=== PATIENT | female | born 1945 | race Caucasian/White ===

== ENCOUNTER 2018-04-01 18:29 | Inpatient (IN) | payer MEDICARE, MEDICAID ==
[~2018-04-01] VITALS: Ht 154.9 cm; Wt 61.4 kg
--- NOTE | 2018-04-01 18:32 | ED.ADGEN ---
Past History Past Medical History: CAD, CHF, COPD, Dementia, Depression, Other Past Surgical History: Other Adult General Chief Complaint Chief Complaint ".. They sent me here to get... checked out... " [facility] HPI Patient is a 72 year old female who presents with above hx and complaints mental status change. Pt. has history of depression, anxiety, fibromyalgia, CHF, A. fib, insomnia, bipolar disorder, dysphagia, COPD, irritable bowel syndrome, GERD, hypertension, dementia, attention seeking behaviors and recent urinary tract infection. Patient has been a resident of [facility] . Patient has been more emotional , frequently crying. However uncooperative with staff in her treatment regimen. Patient normally follows with Dr. James. Patient sent to the emergency department for senior behavioral health evaluation. Review of Systems Review of Systems Patient is a limited historian. Constitutional: Denies fever or chills [] Eyes: Denies change in visual acuity, redness, or eye pain [] HENT: Denies nasal congestion or sore throat [] Respiratory: Denies cough or shortness of breath [] Cardiovascular: No additional information not addressed in [facility] [] GI: Denies abdominal pain, nausea, vomiting, bloody stools or diarrhea [] : Denies dysuria or hematuria [] Musculoskeletal: Denies back pain or joint pain [] Integument: Denies rash or skin lesions [] Neurologic: Denies headache, focal weakness or sensory changes [] Endocrine: Denies polyuria or polydipsia [] All other systems were reviewed and found to be within normal limits, except as documented in this note. Family History Family History Not currently available Current Medications Current Medications See nursing for home medications Allergies Allergies Allergies Coded Allergies Type Severity Reaction Last Updated Verified Sulfa (Sulfonamide Antibiotics) Allergy Unknown 04/01/18 Yes butorphanol Allergy Unknown 04/01/18 Yes nalbuphine Allergy Unknown 04/01/18 Yes nitrofurantoin Allergy Unknown 04/01/18 Yes Physical Exam Physical Exam Constitutional: , no acute distress, non-toxic appearance. [] HENT: Normocephalic, atraumatic, bilateral external ears normal, oropharynx moist, no oral exudates, nose normal. [] Eyes: PERRLA, EOMI, conjunctiva normal, no discharge. [] Neck: Normal range of motion, no tenderness, supple, no stridor. [] Cardiovascular:Heart rate regular rhythm, no murmur []PMI to the left Lungs & Thorax: Bilateral breath sounds equal apex with scattered wheezes on auscultation [] Abdomen: Bowel sounds normal, soft, no tenderness, no masses, no pulsatile masses. [] Skin: Warm, dry, no erythema, no rash. Poor turgor Back: No tenderness, no CVA tenderness. [] Extremities: No tenderness, no cyanosis, no clubbing, ROM intact, no edema. [] Arthritic Changes Neurologic: Alert and oriented X 3, normal motor function, normal sensory function, no focal deficits noted. [] Psychologic: Affect anxious, judgement appears to have limited insight, mood depressed. Denies suicidal or homicidal ideations.[] Current Patient Data Vital Signs Vital Signs Date Time Temp Pulse Resp B/P (MAP) Pulse Ox O2 Delivery O2 Flow Rate FiO2 04/01/18 18:38 98.6 90 18 95 Room Air Lab Results Laboratory Tests Test 04/01/18 19:05 04/01/18 19:48 White Blood Count 7.8 x10^3/uL (4.0-11.0) Red Blood Count 4.21 x10^6/uL (3.50-5.40) Hemoglobin 13.4 g/dL (12.0-15.5) Hematocrit 39.3 % (36.0-47.0) Mean Corpuscular Volume 93 fL (79-100) Mean Corpuscular Hemoglobin 32 pg (25-35) Mean Corpuscular Hemoglobin Concent 34 g/dL (31-37) Red Cell Distribution Width 13.8 % (11.5-14.5) Platelet Count 234 x10^3/uL (140-400) Neutrophils (%) (Auto) 72 % (31-73) Lymphocytes (%) (Auto) 22 % (24-48) L Monocytes (%) (Auto) 5 % (0-9) Eosinophils (%) (Auto) 0 % (0-3) Basophils (%) (Auto) 1 % (0-3) Neutrophils # (Auto) 5.6 x10^3uL (1.8-7.7) Lymphocytes # (Auto) 1.7 x10^3/uL (1.0-4.8) Monocytes # (Auto) 0.4 x10^3/uL (0.0-1.1) Eosinophils # (Auto) 0.0 x10^3/uL (0.0-0.7) Basophils # (Auto) 0.1 x10^3/uL (0.0-0.2) Erythrocyte Sedimentation Rate 28 (0-25) H Prothrombin Time 10.6 SEC (9.4-11.4) Prothrombin Time INR 1.0 (0.9-1.1) PTT 28 SEC (23-33) Sodium Level 139 mmol/L (136-145) Potassium Level 4.0 mmol/L (3.5-5.1) Chloride Level 102 mmol/L (98-107) Carbon Dioxide Level 28 mmol/L (21-32) Anion Gap 9 (6-14) Blood Urea Nitrogen 12 mg/dL (7-20) Creatinine 1.2 mg/dL (0.6-1.0) H Estimated GFR (Cockcroft-Gault) 44.0 Glucose Level 132 mg/dL (70-99) H Calcium Level 9.7 mg/dL (8.5-10.1) Magnesium Level 1.9 mg/dL (1.8-2.4) Total Bilirubin 0.9 mg/dL (0.2-1.0) Direct Bilirubin 0.2 mg/dL (0.0-0.2) Aspartate Amino Transferase (AST) 22 U/L (15-37) Alanine Aminotransferase (ALT) 11 U/L (14-59) L Alkaline Phosphatase 117 U/L (46-116) H Ammonia < 10 mcmol/L (11-34) L Creatine Kinase 52 U/L (26-192) Creatine Kinase MB (Mass) 0.5 ng/mL (0.0-3.6) Creatine Kinase MB Relative Index 1.0 % (0-4) Troponin I Quantitative < 0.017 ng/mL (0-0.055) VW-Gsf-G-Type Natriuretic Peptide 807 pg/mL (0-124) H Total Protein 7.6 g/dL (6.4-8.2) Albumin 4.1 g/dL (3.4-5.0) Urine Collection Type U cath Urine Color Straw Urine Clarity Hazy Urine pH 5.5 Urine Specific [place] 1.020 Urine Protein 30 mg/dl (NEG-TRACE) Urine Glucose (UA) Neg mg/dL (NEG) Urine Ketones (Stick) 15 mg/dL (NEG) Urine Blood Neg (NEG) Urine Nitrite Neg (NEG) Urine Bilirubin Neg (NEG) Urine Urobilinogen Dipstick 0.2 mg/dL (0.2 mg/dL) Urine Leukocyte Esterase Neg (NEG) Urine RBC 3-5 /HPF (0-2) Urine WBC 5-10 /HPF (0-4) Urine Squamous Epithelial Cells Few /LPF Urine Bacteria Many /HPF (0-FEW) Urine Hyaline Casts Few /HPF Urine Mucus Slight /LPF Urine Opiates Screen Neg (NEG) Urine Methadone Screen Neg (NEG) Urine Barbiturates Neg (NEG) Urine Phencyclidine Screen Neg (NEG) Urine Amphetamine/Methamphetamine Neg (NEG) Urine Benzodiazepines Screen Pos (NEG) Urine Cocaine Screen Neg (NEG) Urine Cannabinoids Screen Neg (NEG) Urine Ethyl Alcohol Neg (NEG) EKG EKG My interpretation EKG shows a sinus rhythm at 80 bpm. There is findings of left axis and some nonspecific inferior changes.[] Radiology/Procedures Radiology/Procedures My interpretation chest x-ray shows no acute cardiopulmonary findings. Does have findings of chronic lung changes. Degenerative joint changes. Cardiomegaly. There is some atelectasis. No free air in the diaphragm. I interpretation CT of head shows no shift, mass, edema, bleed, or fracture. There is white matter disease changes consistent with chronic atrophy. See formal report when available[] Course & Med Decision Making Course & Med Decision Making Pertinent Labs and Imaging studies reviewed. (See chart for details) Patient to be admitted to [facility].- Dr. Kate. [] Final Impression Final Impression 1. Mental status change 2. Depression 3. History of anxiety disorder 4. Bipolar 5. History A. fib 6. History CHF[] 7. Insomnia 8. History of COPD 9. History of attention seeking behavior 10. Unable to redirect-noncompliant with medical regimen 11. Elevated creatinine 12. Diabetes Dragon Disclaimer Dragon Disclaimer This electronic medical record was generated, in whole or in part, using a voice recognition dictation system. GÓMEZ VALDES MD Apr 01, 2018 18:32
--- NOTE | 2018-04-01 18:51 | EKG ---
[address] [address] Test Date: 2018-04-01 Test Time: 18:37:34 Pat Name: WAYNE MONGE Department: Room: Gender: F Online Marketer: : 1945 Requested By: GÓMEZ VALDES Order Number: [id number] Reading MD: Sky Jung MD Measurements Intervals [place] Rate: 88 P: -30 ND: 154 QRS: 0 QRSD: 100 T: -7 QT: 400 QTc: 488 Interpretive Statements SINUS RHYTHM NON-SPECIFIC ST/T CHANGES Electronically Signed On 04-02-2018 10:22:13 CDT by Sky Jung MD
--- NOTE | 2018-04-01 19:11 | RAD ---
CT Head W/O Contrast: History: [id number] Mental status changes, confusion Comparison: none Axial images were obtained without contrast. The pantoja and white matter appears normal and symmetrical for the patients age. There is no mass effect, extraaxial fluid collections or hydrocephalus. There is no gross bleed. There is no focal loss of pantoja-white matter distinction to suggest acute ischemia, i.e. stroke. Impression: No acute findings. PQRS Compliance Statement: One or more of the following individualized dose reduction techniques were utilized for this examination: 1. Automated exposure control 2. Adjustment of the mA and/or kV according to patient size 3. Use of iterative reconstruction technique Electronically signed by: Zion Mendoza III, MD (04/01/2018 7:07 PM) [facility]
[2018-04-01 19:33] LABS: BASO # 0.1 x10^3/uL (0.0-0.2); BASO % 1 % (0-3); EOS % 0 % (0-3); HEMATOCRIT 39.3 % (36.0-47.0); HEMOGLOBIN 13.4 g/dL (12.0-15.5); LYMPH # 1.7 x10^3/uL (1.0-4.8); LYMPH % 22 % (24-48); MEAN CORPUSCULAR HEMOGLOBIN 32 pg (25-35); MEAN CORPUSCULAR HGB CONC 34 g/dL (31-37); MEAN CORPUSCULAR VOLUME 93 fL (79-100); MONO # 0.4 x10^3/uL (0.0-1.1); MONO % 5 % (0-9); NEUT # 5.6 x10^3uL (1.8-7.7); NEUT % 72 % (31-73); PLATELET COUNT 234 x10^3/uL (140-400); RED BLOOD COUNT 4.21 x10^6/uL (3.50-5.40); RED CELL DISTRIBUTION WIDTH 13.8 % (11.5-14.5); WHITE BLOOD COUNT 7.8 x10^3/uL (4.0-11.0)
[2018-04-01 19:56] LABS: CALCIUM 9.7 mg/dL (8.5-10.1); CREATININE 1.2 mg/dL (0.6-1.0); MAGNESIUM 1.9 mg/dL (1.8-2.4)
[2018-04-01] MEDS ORDERED: LISI10TA2 PO (19:56)
[2018-04-01] MEDS ORDERED: SIMV40TA3 PO (19:56)
[2018-04-01] MEDS ORDERED: LOPE2CAP88 PO (19:56)
[2018-04-01] MEDS ORDERED: BISA10SU2 RC (19:56)
[2018-04-01] MEDS ORDERED: LACT30003 PO (19:56)
[2018-04-01] MEDS ORDERED: CHLO15MO2 PO (19:56)
[2018-04-01] MEDS ORDERED: PECT2.8L3 PO (19:56)
[2018-04-01] MEDS ORDERED: CYCL5TAB PO (19:56)
[2018-04-01] MEDS ORDERED: METO5TAB55 PO ×2 (19:56)
[2018-04-01] MEDS ORDERED: CYAN10005 PO (19:56)
[2018-04-01] MEDS ORDERED: FAMO20TA5 PO (19:56)
[2018-04-01] MEDS ORDERED: ONDA4TAB11 PO (19:56)
[2018-04-01] MEDS ORDERED: ALBU2.5V5 NEB (19:56)
[2018-04-01] MEDS ORDERED: OMEP40CA5 PO (19:56)
[2018-04-01] MEDS ORDERED: MAG355OR11 PO (19:56)
[2018-04-01] MEDS ORDERED: MELA1TAB2 PO (19:56)
[2018-04-01] MEDS ORDERED: CALC1TAB70 PO (19:56)
[2018-04-01] MEDS ORDERED: CARB15DR3 EACHEYE (19:56)
[2018-04-01] MEDS ORDERED: GUAI100L12 PO (19:56)
[2018-04-01] MEDS ORDERED: OXYB10TA PO (19:56)
[2018-04-01] MEDS ORDERED: DULO60CA6 PO (19:56)
[2018-04-01] MEDS ORDERED: MENT118G TP (19:56)
[2018-04-01] MEDS ORDERED: CARV6.252 PO (19:56)
[2018-04-01] MEDS ORDERED: ALPR0.5T PO (19:56)
[2018-04-01] MEDS ORDERED: DOCU-109 PO (19:56)
[2018-04-01] MEDS ORDERED: MINE396O2 TP (19:56)
[2018-04-01] MEDS ORDERED: OXYC5CAP PO (19:56)
[2018-04-01] MEDS ORDERED: DICY20TA3 PO (19:56)
[2018-04-01 20:45] LABS: AMPHETAMINE/METHAMPHETAMINE NEG (NEG); BARBITURATES NEG (NEG); BENZODIAZEPINES POS (NEG); CANNABINOIDS NEG (NEG); COCAINE NEG (NEG); METHADONE NEG (NEG); OPIATES NEG (NEG); PHENCYCLIDINE NEG (NEG)
[2018-04-01 21:02] LABS: BACTERIA,URINE MANY /HPF (0-FEW); BILIRUBIN,URINE NEG (NEG); CLARITY,URINE HAZY; COLOR,URINE STRAW; GLUCOSE,URINE NEG (NEG); HYALINE CASTS, URINE FEW /HPF; NITRITE,URINE NEG (NEG); SQUAMOUS EPITHELIAL CELL,UR FEW /LPF; UROBILINOGEN,URINE 0.2 mg/dL (0.2 mg/dL)
[2018-04-01 21:12] LABS: SEDIMENTATION RATE 28 (0-25)
[2018-04-01 22:40] VITALS: BP 158/75
[2018-04-01] MEDS ORDERED: MAGNESIUM HYDROXIDE 2,400 MG/30 ML ORAL.SUSP. PO PRN (23:00)
[2018-04-01] MEDS ORDERED: MAG HYDROX/AL HYDROX/SIMETH 30 ML ORAL.SUSP PO PRN (23:00)
[2018-04-01] MEDS ORDERED: ACETAMINOPHEN 325 MG TABLET PO PRN (23:00)
[2018-04-01] MEDS ORDERED: METHYL SALICYLATE/MENTHOL TOPICAL OINTMENT 29GM TUBE. TP PRN (23:00)
[2018-04-01] MEDS ORDERED: [UNRECOGNIZED DRUG - CODE] TD (23:11)
[2018-04-01 23:17] LABS: ALBUMIN 4.1 g/dL (3.4-5.0); TOTAL BILIRUBIN 0.9 mg/dL (0.2-1.0); TOTAL PROTEIN 7.6 g/dL (6.4-8.2)
[2018-04-01 23:28] LABS: DIRECT BILIRUBIN 0.2 mg/dL (0.0-0.2)
[2018-04-01] MEDS ORDERED: ALUMINUM HYD PO PRN (23:30)
[2018-04-01] MEDS ORDERED: guaiFENesin 300 MG/15 ML LIQUID PO PRN (23:30)
[2018-04-01] MEDS ORDERED: NON FORMULARY ITEM (Menthol (Biofreeze) 1 APP) TP PRN (23:30)
[2018-04-01] MEDS ORDERED: MAG HYDROX PO PRN (23:30)
[2018-04-01] MEDS ORDERED: SIMETH PO PRN (23:30)
[2018-04-01] MEDS ORDERED: ALBUTEROL SULFATE 2.5 MG/3 ML NEBU. NEB PRN (23:30)
[2018-04-01] MEDS ORDERED: LOPERAMIDE 2 MG CAPSULE PO PRN (23:45)
[2018-04-01] MEDS ORDERED: DOCUSATE SODIUM 100 MG CAPSULE PO PRN (23:45)
[2018-04-01] MEDS ORDERED: BENZOCAINE/MENTHOL LOZNGE 18'S BOX. PO PRN (23:45)
[2018-04-01] MEDS ORDERED: BISACODYL 10 MG SUPP.RECT PR PRN (23:45)
[2018-04-02] MEDS ORDERED: C.DIFF MED SCREEN BY RX. MC ONE
[2018-04-02 07:02] LABS: BASO # 0.1 x10^3/uL (0.0-0.2); BASO % 1 % (0-3); EOS # 0.1 x10^3/uL (0.0-0.7); EOS % 1 % (0-3); HEMATOCRIT 37.2 % (36.0-47.0); HEMOGLOBIN 12.6 g/dL (12.0-15.5); LYMPH # 2.5 x10^3/uL (1.0-4.8); LYMPH % 24 % (24-48); MEAN CORPUSCULAR HEMOGLOBIN 32 pg (25-35); MEAN CORPUSCULAR HGB CONC 34 g/dL (31-37); MEAN CORPUSCULAR VOLUME 93 fL (79-100); MONO # 0.8 x10^3/uL (0.0-1.1); MONO % 8 % (0-9); NEUT # 6.9 x10^3uL (1.8-7.7); NEUT % 66 % (31-73); PLATELET COUNT 223 x10^3/uL (140-400); RED BLOOD COUNT 3.99 x10^6/uL (3.50-5.40); RED CELL DISTRIBUTION WIDTH 13.8 % (11.5-14.5); WHITE BLOOD COUNT 10.4 x10^3/uL (4.0-11.0)
[2018-04-02 07:13] LABS: CALCIUM 8.9 mg/dL (8.5-10.1); CREATININE 1.2 mg/dL (0.6-1.0); POTASSIUM 3.3 mmol/L (3.5-5.1)
[2018-04-02 07:24] VITALS: BP 160/79
--- NOTE | 2018-04-02 07:55 | RAD ---
Portable chest, 04/01/2018: HISTORY: Dyspnea The patient is rotated to the left. The heart size and pulmonary vascularity are within normal limits. There is calcific plaquing of the aorta. Minimal linear scarring or atelectasis is present laterally in the left lung. No pulmonary consolidation is seen. There is no evidence of pleural fluid. The bony structures are demineralized. IMPRESSION: 1. Aortic atherosclerosis. 2. Minimal linear scarring or atelectasis on the left. Electronically signed by: Joni Lam MD (04/02/2018 7:51 AM) [facility]
[2018-04-02] MEDS: FAMOTIDINE 20 MG TABLET PO SCH ×2 (08:50→19:48)
[2018-04-02] MEDS: CHLORHEXIDINE 0.12% 15 ML MOUTHWASH. SWSP SCH ×2 (08:50→19:49)
[2018-04-02] MEDS: LACTASE 3,000 UNIT TABLET PO SCH ×3 (08:50→18:05)
[2018-04-02] MEDS: CARVEDILOL 6.25 MG TABLET PO SCH ×2 (08:51→18:05)
[2018-04-02] MEDS: ALPRAZolam 0.5 MG TABLET PO SCH ×3 (08:51→19:51)
[2018-04-02] MEDS: CALCIUM CARB/VIT D3 500/200 TABLET PO SCH ×2 (08:51→18:05)
[2018-04-02] MEDS: LISINOPRIL 10 MG TABLET PO SCH (08:51)
[2018-04-02] MEDS: METOCLOPRAMIDE 5 MG TABLET PO SCH (08:51)
[2018-04-02] MEDS: DICYCLOMINE HCL 20 MG TABLET PO SCH ×4 (08:51→19:49)
[2018-04-02] MEDS: DULoxetine HCL 60 MG CAPSULE.DR PO SCH (08:51)
[2018-04-02] MEDS: OXYBUTYNIN CHLORIDE 5 MG TABLET PO SCH ×2 (08:52→19:48)
[2018-04-02] MEDS: POLYVINYL ALCOHOL 1.4% OPHTH SOLUTION 15ML BOTTLE. OU SCH ×4 (08:56→21:00)
[2018-04-02] MEDS ORDERED: FAMOTIDINE 20 MG TABLET PO SCH (09:00)
[2018-04-02] MEDS ORDERED: CYANOCOBALAMIN (VITAMIN B-12) 1,000 MCG TABLET. PO SCH (09:00)
[2018-04-02 13:31] LABS: THYROID STIM HORMONE (TSH) 0.569 uIU/mL (0.358-3.740)
[2018-04-02] MEDS: fentaNYL 25MCG/HR 1 PATCH PATCH TD SCH (14:22)
[2018-04-02] MEDS: fentaNYL 12MCG/HR 1 PATCH PATCH TD SCH (14:22)
[2018-04-02 16:46] VITALS: BP 116/58
[2018-04-02 19:10] LABS: THYROXINE 8.5 ug/dL (4.5-12.0)
[2018-04-02] MEDS: MINERAL OIL/PETROLATUM TOPICAL CREAM 113GM JAR. TP SCH (19:50)
[2018-04-02] MEDS: SIMVASTATIN 40 MG TABLET. PO SCH (19:51)
[2018-04-02] MEDS ORDERED: PANTOPRAZOLE 40 MG TABLET. PO SCH (21:00)
[2018-04-02] MEDS: MELATONIN 3 MG TABLET PO PRN (22:40)
[2018-04-03 03:12] LABS: HEMOGLOBIN A1C 5.8 % (4.8-5.6)
[2018-04-03] MEDS: CYCLOBENZAPRINE 10 MG TABLET. PO PRN (04:35)
--- NOTE | 2018-04-03 04:57 | CONS ---
DATE OF CONSULTATION: 04/02/2018 REASON FOR CONSULTATION: Medical management. HISTORY OF PRESENT ILLNESS: This is a 72-year-old female patient, a resident at [facility] who was admitted on account of attention seeking, states the staff did not have time for her. She finished antibiotics for UTI. She is exit seeking, believes someone coming to pick her up to take her home. She has labile mood, crying, walking into mental health social worker office stating that I need to go to the hospital because I cannot walk. She also complains stated that she is unable to eat or drink; however, she was observed eating and drinking without difficulty. PAST MEDICAL HISTORY: Significant for irritable bowel syndrome, hyperlipidemia, gastroesophageal reflux disease, hypertension, atherosclerotic heart disease, dysphagia, bipolar disorder, and heart failure as well as atrial fibrillation, polyarthritis, poly-osteoarthritis, COPD and osteoporosis. She has also fall with right hip pain, fracture of the right pubic ramus. PAST SURGICAL HISTORY: Significant for cholecystectomy, appendectomy, total abdominal hysterectomy, bilateral salpingo-oophorectomy. She also has esophagogastroduodenoscopy as well as colonoscopy and polypectomy. ALLERGIES: SHE IS ALLERGIC TO IODINATED CONTRAST, ORAL AND IV DYE, SULFA DRUGS, BUTORPHANOL, NALBUPHINE, NITROFURANTOIN. MEDICATIONS: She is currently on the following medications: She is on dicyclomine 20 mg 4 times a day, albuterol sulfate 2.5 mg 3 mL by nebulizer every 6 hours. She is on cyclobenzaprine 5 mg every 8 hours, simvastatin 40 mg at bedtime, carvedilol 6.25 mg twice a day with meals, lisinopril 10 mg once a day, fentanyl 37.5 mcg patch topically to be replaced every 72 hours. She is on oxycodone 5 mg every 6 hours, duloxetine for Cymbalta 60 mg once a day, alprazolam 0.5 mg 3 times a day. She is on calcium carbonate and vitamin D3 1 capsule twice a day, guaifenesin 100 mg per 5 mL liquid 15 mL every 6 hours. She is on chlorhexidine gluconate 15 mL p.o. b.i.d., carboxymethylcellulose or Refresh Optive eyedrops 1 drop to both eyes 4 times a day, ____ every 3 hours as needed. She is on Maalox 30 mL as needed every 6 hours, loperamide 2 mg every 4 hours as needed, bisacodyl 10 mg rectally daily p.r.n. for constipation, docusate sodium 100 mg twice a day. She is on lactase 3000 unit tablet 3 tablets p.o. 3 times a day with meals. She is on ondansetron 4 mg every 8 hours, famotidine 20 mg daily, omeprazole 40 mg at bedtime, metoclopramide 5 mg every 6 hours, metoclopramide 5 mg p.o. daily, menthol for Biofreeze 1 application topically every 6 hours, oxybutynin chloride 10 mg daily, cyanocobalamin 1000 mcg tablet once a day, melatonin/pyridoxine one tablet at bedtime. FAMILY HISTORY: Unremarkable. SOCIAL HISTORY: She is a resident at [facility]. She does not smoke, drink alcohol or use any recreational drugs. REVIEW OF SYSTEMS: As per history of present illness. PHYSICAL EXAMINATION GENERAL: When I examined her, she looks well and was clearly in no apparent respiratory distress, slightly pale, no jaundice, cyanosis, or thyromegaly. No jugular venous distension. No limb edema. VITAL SIGNS: Her heart rate was 96, blood pressure was 160/79, temperature was 97.6, respiratory rate was 18, and oxygen saturation 100% on room air. HEAD, EYES, EARS, NOSE AND THROAT: Showed normocephalic, atraumatic. NECK: Supple. HEART: Showed normal first and sounds with no gallop, rub or murmur. CHEST: Clear to auscultation. No crepitation or rhonchi. ABDOMEN: Distended, soft, nontender. No guarding or rigidity. No organomegaly. All hernial orifices are intact. Bowel sounds normal. NEUROLOGIC: She is awake, alert. All her cranial nerves are intact. EXTREMITIES: She moves extremities without difficulty. She apparently is mostly able to walk with a walker. Also, she is wheelchair bound. LABORATORY DATA: Showed that her white cell count was 7800, hemoglobin 13.4, hematocrit 39, MCV 93, and platelet count 234,000 with normal manual differential. Her chemistry showed a serum sodium 139, potassium 4, chloride 102, bicarbonate 28, anion gap of 9, BUN 12, creatinine 1.2, estimated GFR was 44 mL per minute. Her glucose 132, calcium was 9.7, magnesium was 1.9. Her total protein was 7.6, albumin 4.1. Her total bilirubin, AST, ALT, and alkaline phosphatase were normal. Her serum ammonia was less than 10. Her prothrombin time was 10.6, INR of 1, aPTT was 28. Urinalysis showed the urine was straw colored, hazy with a pH of 5.5, specific gravity 1.020. There is a trace of protein. The urine was negative for glucose. There was small amount of ketones. Urine was negative for blood, nitrite and leukocyte esterase with 3-5 rbc's and 5-10 wbc's, very few bacteria. Her tox screen was positive only for benzodiazepine. IMAGING DATA: Her CT scan of the head showed that the duran and white matter appeared normal and symmetrical for the patient's age. There is no mass effect, extra fluid collection or hydrocephalus. There is no gross bleed. There is no focal loss of duran or white matter distinction to suggest an acute ischemia. Her chest x-ray showed that the patient was rotated to the left. Her heart size and pulmonary vascularity are within normal limits. There is calcific plaquing of the aorta, minimal linear scarring or atelectasis is present laterally in the lung field. No pulmonary consolidation is seen. There is no evidence of pleural fluid, the bony structures are demineralized. IMPRESSION AND PLAN: In summary, this is a 72-year-old female patient who was admitted on account of attention seeking, stating that the staff does not have time for her. She finished antibiotics for urinary tract infection. She is exit seeking, believes that someone is coming to pick her up to take her home. She has a labile mood. She is crying, walking to mental health social worker office stating that she needs to go to the hospital as she is unable to walk; all this in a background of bipolar disorder. Medically, she has multiple medical problems including irritable bowel syndrome, hyperlipidemia, hypertension, gastroesophageal reflux disease. She has also dysphagia, heart failure, atrial fibrillation, anxiety and osteoporosis as well as osteoarthritis. Medically, she is overall seems to be stable. Her blood pressure is slightly on the high side. I will continue all this medication. I will monitor her blood pressure. We might have to adjust her blood pressure medication if need be. She is on lisinopril 10 mg once a day, carvedilol 6.25 mg, we could increase one or both of them to achieve a better blood pressure control. Thank you, Dr. Kate for allowing me to participate in the care of this patient. MARIA POWER MD DR: HAFSA/tessie JOB#: [id number] / [id number]
[2018-04-03 05:55] VITALS: BP 125/56
[2018-04-03] MEDS: FAMOTIDINE 20 MG TABLET PO SCH ×2 (10:15→19:04)
[2018-04-03] MEDS: LACTASE 3,000 UNIT TABLET PO SCH ×3 (10:15→17:27)
[2018-04-03] MEDS: CARVEDILOL 6.25 MG TABLET PO SCH ×2 (10:15→17:00)
[2018-04-03] MEDS: METOCLOPRAMIDE 5 MG TABLET PO SCH (10:15)
[2018-04-03] MEDS: DICYCLOMINE HCL 20 MG TABLET PO SCH ×4 (10:15→19:04)
[2018-04-03] MEDS: CHLORHEXIDINE 0.12% 15 ML MOUTHWASH. SWSP SCH ×2 (10:16→19:04)
[2018-04-03] MEDS: OXYBUTYNIN CHLORIDE 5 MG TABLET PO SCH ×2 (10:16→19:04)
[2018-04-03] MEDS: CALCIUM CARB/VIT D3 500/200 TABLET PO SCH ×2 (10:16→17:27)
[2018-04-03] MEDS: DULoxetine HCL 60 MG CAPSULE.DR PO SCH (10:16)
[2018-04-03] MEDS: LISINOPRIL 10 MG TABLET PO SCH (10:16)
[2018-04-03] MEDS: POLYVINYL ALCOHOL 1.4% OPHTH SOLUTION 15ML BOTTLE. OU SCH ×4 (10:19→20:24)
[2018-04-03] MEDS: ALPRAZolam 0.5 MG TABLET PO SCH ×3 (10:19→19:05)
[2018-04-03] MEDS: oxyCODONE IR 5 MG TABLET PO PRN ×2 (11:34→13:00)
--- NOTE | 2018-04-03 13:04 | HP ---
ADMIT DATE: 04/02/2018 PSYCHIATRIC ADMISSION HISTORY/EVALUATION This is a late entry, date of service 04/02/2018 covers elements not covered in my initial note of 04/02/2018. SUBJECTIVE: Met with the patient in evening of 04/02/2018. IDENTIFYING DATA: The patient is a 72-year-old female referred to us from [place], [place] by Dr. Arvin James, her primary care physician and psychologist from [facility] who have been following her there. She is referred because of "attention-seeking behaviors''. She states ''staff reportedly does not have time for her''. Has been anxious, exit seeking, restless, paranoid, delusional, believes someone is coming to pick her up, take her home, has had episodic crying spells, extreme marked mood lability, went to the nursing staff indicating she wanted to go to the hospital for psychiatric stabilization. She has recently completed treatment of her UTI. Behaviors symptoms, mood lability has been worsening 2-3 months, much worse for the past few days resulting in this referral. CHIEF COMPLAINT: ''Over the year is 1919". It is unclear entirely. The patient is so confused, does state the year is 1919 year. This is part of her psychiatric presentation and will be clarified during this hospitalization. HISTORY OF PRESENT ILLNESS: The patient has a diagnosis of bipolar disorder, treated in the past and we will be requesting past records for this. Over the last 2 months, behaviors have been worsening markedly, much worse in the past few days. She has had sleep and appetite changes, marked mood lability, anxiety, irritability psychotic symptoms and behaviors that have been unmanageable at the halfway. No active suicidal or homicidal ideation. She has been quite disruptive. PAST PSYCHIATRIC HISTORY: As above. MEDICAL HISTORY: Irritable bowel syndrome, hyperlipidemia, GERD, hypertension, atherosclerotic heart disease, dysphagia, heart failure, atrial fibrillation, polyosteoarthritis, COPD, osteoporosis, repeated falls, pain, right hip, fractured right pubis, difficulty walking, recent UTI. CODE STATUS: DNR. ALLERGIES: SULFADIAZINE, MACRODANTIN, NUBAIN, STADOL, CONTRAST DYES. ACCU-CHEKS: None. DIET: Regular diet. MEDICATIONS: Takes medications crushed in pudding. WALKS: Independently with a walker. FAMILY HISTORY: Noncontributory. SOCIAL HISTORY: No alcohol, drug abuse, physical, sexual or elder abuse history is noted. She is not known to be a perpetrator. CURRENT PSYCHOTROPICS: Cymbalta 60 mg a day, melatonin 5 mg at bedtime p.r.n., Xanax 0.5 mg 3 times a day. REACTION TO HOSPITALIZATION: The patient accepting of this, in fact requested it herself. ASSETS: Supportive living at the above facility. MENTAL STATUS EXAM: The patient was seen individually in evening of 04/02/2018. She said the year was 1919, felt she had been here 2 weeks where she was admitted the previous evening. Per report from social service staff, Kellie, the patient is quite disorganized, anxious, restless, admits to memory deficits, made vague statements to social service staff about wanting to kill herself then denied this. She denied active suicidal ideation as I questioned her on this. She has been somewhat delusional, talked about having being kidnapped by 4 guys that for "giving her payback'' and then she said she was thinking about suicide and it was okay because it all ''worked out." Speech is coherent, rapid at times. Abstraction fair, computation impaired, language function intact. Attention span short. Mood and affect remains labile. LABORATORY DATA: Reviewed. IMPRESSION: Bipolar 1 disorder, mixed with psychotic features; anxiety disorder, unspecified; impulse control disorder, unspecified; probable major neurocognitive disorder, Alzheimer, vascular with depression, delusions. Rest as above. PLAN: Admit to Geropsychiatry Unit at [facility]. I will see the patient daily individually from a psychiatric standpoint. Medical followup per Dr. Barajas/Dr Cast. Continue the patient on her current psychotropics. Obtain past psychiatric records. Consider Depakote as a mood stabilizer or Lamictal if depressive episodes rather prominent mood symptoms and her bipolar symptoms. Estimated length of stay 10-12 days. DISPOSITION: Plans back to [facility]. MAN Ziggy RODRÍGUEZ MD DR: SHIRA/tessie JOB#: [id number] / [id number]
[2018-04-03] MEDS: ONDANSETRON ODT 4 MG TAB.RAPDIS PO PRN (14:38)
[2018-04-03 16:04] VITALS: BP 102/52
[2018-04-03] MEDS: SIMVASTATIN 40 MG TABLET. PO SCH (19:04)
[2018-04-03] MEDS: hydrOXYzine HCL 25 MG TABLET PO PRN (19:04)
[2018-04-03] MEDS: MELATONIN 3 MG TABLET PO PRN (19:06)
[2018-04-03] MEDS: MINERAL OIL/PETROLATUM TOPICAL CREAM 113GM JAR. TP SCH (19:06)
--- NOTE | 2018-04-03 20:25 | PDOC ---
Exam Note: Johnny Note: Please also refer to the separate dictated note~for this date of service dictated separately.~Patient seen individually. Discussed the patient with Nursing staff reviewed the chart.~Reviewed interim history and current functioning. Reviewed vital signs,~Labs/ Radiology~and current medications noted below. Continue current treatment with the changes noted in the dictated addendum note Assessment: Vital Signs: Vital Signs Date Time Temp Pulse Resp B/P (MAP) Pulse Ox O2 Delivery O2 Flow Rate FiO2 04/03/18 17:00 89 102/52 04/03/18 16:04 98.2 17 98 Room Air I&O Intake and Output 04/03/18 07:00 Intake Total 720 ml Balance 720 ml Intake Oral 720 ml Current Medications: Meds: Current Medications Acetaminophen (Tylenol) 650 mg PRN Q6HRS PRN PO PAIN / TEMP Last administered on 04/02/18at 11:45; Start 04/01/18 at 23:00 Multi-Ingredient Ointment (Analgesic [place]) 1 bushra PRN QID PRN TP MUSCLE PAIN; Start 04/01/18 at 23:00 Al Hydroxide/Mg Hydroxide (Mylanta Plus Xs) 15 ml PRN AFTMEALHC PRN PO DYSPEPSIA Last administered on 04/02/18at 12:27; Start 04/01/18 at 23:00 Magnesium Hydroxide (Milk Of Magnesia) 2,400 mg PRN QHS PRN PO CONSTIPATION; Start 04/01/18 at 23:00 Alprazolam (Xanax) 0.5 mg TID PO Last administered on 04/03/18at 19:05; Start at 09:00 Duloxetine HCl (Cymbalta) 60 mg DAILY PO Last administered on 04/03/18at 10:16; Start 04/02/18 at 09:00 Melatonin 6 mg PRN QHS PRN PO INSOMNIA Last administered on 04/03/18at 19:06; Start 04/01/18 at 23:45 Albuterol Sulfate (Ventolin) 2.5 mg PRN Q6HRS PRN NEB SHORTNESS OF BREATH; Start 04/01/18 at 23:30 Chlorhexidine Gluconate (Peridex) 15 ml BID SWSP Last administered on at 19:04; Start 04/02/18 at 09:00 Cyanocobalamin (Vitamin B-12) 1,000 mcg DAILY PO Last administered on at 08:51; Start 04/02/18 at 09:00; Status Future Hold Guaifenesin (Robitussin) 300 mg PRN Q6HRS PRN PO COUGH; Start 04/01/18 at 23:30 Lisinopril (Prinivil) 10 mg DAILY PO Last administered on 04/03/18at 10:16; Start 04/02/18 at 09:00 Simvastatin (Zocor) 40 mg HS PO Last administered on 04/03/18at 19:04; Start at 21:00 Bisacodyl (Dulcolax Supp) 10 mg PRN DAILY PRN [place] CONSTIPATION; Start 04/01/18 at 23:45 Calcium/Vitamin D (Oscal D 500mg/ 200uts) 1 tab BIDWMEALS PO Last administered on 04/03/18 17:27; Start 04/02/18 at 08:00 Artificial Tears (Artificial Tears) 1 drop QID OU Last administered on at 18:04; Start 04/02/18 at 09:00 Carvedilol (Coreg) 6.25 mg BIDWMEALS PO Last administered on 04/03/18at 10:15; Start 04/02/18 at 08:00 Cyclobenzaprine HCl (Flexeril) 5 mg PRN Q8HRS PRN PO MUSCLE SPASMS Last administered on 04/03/18 04:35; Start 04/01/18 at 23:45 Dicyclomine HCl (Bentyl) 20 mg QID PO Last administered on 04/03/18at 19:04; Start 04/02/18 at 09:00 Docusate Sodium (Colace) 100 mg PRN DAILY PRN PO CONSTIPATION; Start 04/01/18 at 23:45 Famotidine (Pepcid) 20 mg DAILY PO ; Start 04/02/18 at 09:00; Stop 04/02/18 at 09:00; Status DC Fentanyl (Duragesic 12mcg/ Hr) 1 patch Q3DAYS TD ; Start 04/04/18 at 09:00; Stop 04/04/18 at 09:00; Status DC Lactase (Lactaid) 9,000 unit TIDWMEALS PO Last administered on 6/27/18at 17:27 ; Start 04/02/18 at 08:00 Loperamide HCl (Imodium) 2 mg PRN Q4HRS PRN PO DIARRHEA; Start 04/01/18 at 23: 45 Non-Formulary Medication (Mag Hydrox/ Aluminum Hyd/ Simeth (Maalox Advanced Suspension)) 30 ml PRN Q6HRS PRN PO DYSPEPSIA; Start 04/01/18 at 23:30; Status UNV Non-Formulary Medication (Menthol (Biofreeze)) 1 bushra PRN Q6HRS PRN TP PAIN; Start 04/01/18 at 23:30; Status UNV Metoclopramide HCl (Reglan) 5 mg DAILY PO Last administered on 04/03/18at 10:15 ; Start 04/02/18 at 09:00 Metoclopramide HCl (Reglan) 5 mg PRN Q6HRS PRN PO NAUSEA/VOMITING; Start at 23:45 Multi-Ingred Cream/Lotion/Oil/ Oint (Hydrocerin) 1 bushra QHS TP Last administered on 04/03/18at 19:06; Start 04/02/18 at 21:00 Pantoprazole Sodium (Protonix) 40 mg QHS PO ; Start 04/02/18 at 21:00; Stop at 21:00; Status DC Ondansetron HCl (Zofran Odt) 4 mg PRN Q8HRS PRN PO NAUSEA/VOMITING Last administered on 04/03/18at 14:38; Start 04/01/18 at 23:45 Oxybutynin Chloride (Ditropan) 5 mg BID PO Last administered on 04/03/18at 19:04 ; Start 04/02/18 at 09:00 Oxycodone HCl (Roxicodone) 5 mg PRN Q6HRS PRN PO PAIN Last administered on 04/03at 11:34; Start 04/01/18 at 23:45 Throat Lozenges (Cepacol Sore Throat Lozenge) 1 bela PRN Q2HR PRN PO SORE THROAT ; Start 04/01/18 at 23:45 Fentanyl (Duragesic 25mcg/ Hr) 1 patch Q3DAYS TD ; Start 04/04/18 at 09:00; Stop 04/04/18 at 09:00; Status DC Info (Do NOT chart on this placeholder) 1 each 1X ONCE MC Last administered on 04/02/18at 00:00; Start 04/02/18 at 00:00; Stop 04/02/18 at 00:01; Status DC Famotidine (Pepcid) 20 mg BID PO Last administered on 04/03/18at 19:04; Start at 09:00 Fentanyl (Duragesic 12mcg/ Hr) 1 patch Q3DAYS TD Last administered on at 14:22; Start 04/02/18 at 14:00 Fentanyl (Duragesic 25mcg/ Hr) 1 patch Q3DAYS TD Last administered on at 14:22; Start 04/02/18 at 14:00 Hydroxyzine HCl (Atarax) 25 mg PRN Q2HR PRN PO ANXIETY Last administered on at 19:04; Start 04/03/18 at 18:30 Quetiapine Fumarate (SEROquel) 12.5 mg 0900,1300,1700 PO ; Start 04/04/18 at 09: 00 Active Scripts Active Reported Fentanyl 1 Each Patch.td72 37.5 Mcg TD Q3DAYS Ondansetron Hcl 4 Mg Tablet 4 Mg PO PRN Q8HRS PRN Xanax (Alprazolam) 0.5 Mg Tablet 0.5 Mg PO TID Throat Drops (Pectin) 2.8 Mg Lozenge 1 Unit PO PRN Q3HRS PRN Simvastatin 40 Mg Tablet 40 Mg PO HS Reglan (Metoclopramide Hcl) 5 Mg Tablet 5 Mg PO DAILY Reglan (Metoclopramide Hcl) 5 Mg Tablet 5 Mg PO PRN Q6HRS PRN Refresh Optive Eye Drops (Carboxymethylcellulos/Glycerin) 15 Ml Drops 1 Drop EACHEYE QID Oyster Shell 500 Mg + Vit D Tb (Calcium Carbonate/Vitamin D3) 1 Each Tablet 1 Tab PO BID Oxycodone Hcl 5 Mg Capsule 5 Mg PO PRN Q6HRS PRN Oxybutynin Chloride Er (Oxybutynin Chloride) 10 Mg Tab.er.24 10 Mg PO DAILY Omeprazole 40 Mg Capsule.dr 40 Mg PO HS Maalox Advanced Suspension (Mag Hydrox/Aluminum Hyd/Simeth) 355 Ml Oral.susp 30 Ml PO PRN Q6HRS PRN Melatonin 5 Mg Tablet (Melatonin/Pyridoxine) 1 Each Tablet 5 Mg PO PRN QHS PRN Lisinopril 10 Mg Tablet 10 Mg PO DAILY Lactase 3,000 Unit Tablet 3 Tab PO TIDWMEALS Imodium A-D (Loperamide HCl) 2 Mg Capsule 2 Mg PO PRN Q4HRS PRN Guaifenesin 100 Mg/5 Ml Liquid 15 Ml PO PRN Q6HRS PRN Famotidine 20 Mg Tablet 20 Mg PO DAILY Dicyclomine Hcl 20 Mg Tablet 20 Mg PO QID Cymbalta (Duloxetine Hcl) 60 Mg Capsule.dr 60 Mg PO DAILY Cyclobenzaprine Hcl 5 Mg Tablet 5 Mg PO PRN Q8HRS PRN Vitamin B-12 (Cyanocobalamin (Vitamin B-12)) 1,000 Mcg Tablet 1,000 Mcg PO DAILY Colace (Docusate Sodium) 100 Mg Capsule 100 Mg PO PRN DAILY PRN Peridex (Chlorhexidine Gluconate) 15 Ml Mouthwash 15 Ml PO BID Carvedilol 6.25 Mg Tablet 6.25 Mg PO BIDWMEALS Bisacodyl 10 Mg Supp.rect 10 Mg RC PRN DAILY PRN Biofreeze (Menthol) 118 Ml Gel..ml. 1 Bushra TP PRN Q6HRS PRN Aquaphor Ointment (Mineral Oil/Hydrophil Petrolat) 396 Gm Oint...g. 1 Bushra TP HS Albuterol Sulfate Neb Soln (Albuterol Sulfate) 2.5 Mg/3 Ml Vial.neb 3 Ml NEB PRN Q6HRS PRN I have reviewed the current psychotropics carefully including drug interactions. Risk benefit ratio favors no change other than as noted in my dictated progress note. Diagnosis: Problems: (1) Mental status alteration (2) Anxiety disorder (3) Bipolar affective disorder, mixed (4) Dementia in Alzheimer's disease with depression (5) Dementia in Alzheimer's disease with delusions (6) Dementia, vascular, with delusions (7) Dementia, vascular, with depression (8) Impulse control disorder KALIE RODRÍGUEZ MD Apr 03, 2018 20:25
[2018-04-04 05:37] VITALS: BP 119/51
[2018-04-04] MEDS ORDERED: fentaNYL 12MCG/HR 1 PATCH PATCH TD SCH (09:00)
[2018-04-04] MEDS ORDERED: fentaNYL 25MCG/HR 1 PATCH PATCH TD SCH (09:00)
[2018-04-04] MEDS: CARVEDILOL 6.25 MG TABLET PO SCH ×2 (10:13→17:00)
[2018-04-04] MEDS: DULoxetine HCL 60 MG CAPSULE.DR PO SCH (10:13)
[2018-04-04] MEDS: METOCLOPRAMIDE 5 MG TABLET PO SCH (10:13)
[2018-04-04] MEDS: CALCIUM CARB/VIT D3 500/200 TABLET PO SCH ×3 (10:13→17:35)
[2018-04-04] MEDS: FAMOTIDINE 20 MG TABLET PO SCH ×2 (10:13→20:43)
[2018-04-04] MEDS: LACTASE 3,000 UNIT TABLET PO SCH ×3 (10:14→17:37)
[2018-04-04] MEDS: LISINOPRIL 10 MG TABLET PO SCH (10:14)
[2018-04-04] MEDS: CHLORHEXIDINE 0.12% 15 ML MOUTHWASH. SWSP SCH ×2 (10:14→20:43)
[2018-04-04] MEDS: DICYCLOMINE HCL 20 MG TABLET PO SCH ×4 (10:14→20:44)
[2018-04-04] MEDS: OXYBUTYNIN CHLORIDE 5 MG TABLET PO SCH ×2 (10:14→20:43)
[2018-04-04] MEDS: ALPRAZolam 0.5 MG TABLET PO SCH ×3 (10:16→20:48)
[2018-04-04] MEDS: QUEtiapine 25 MG TABLET. PO SCH ×3 (10:16→17:35)
[2018-04-04] MEDS: POLYVINYL ALCOHOL 1.4% OPHTH SOLUTION 15ML BOTTLE. OU SCH ×5 (10:35→20:48)
[2018-04-04] MEDS: CYCLOBENZAPRINE 10 MG TABLET. PO PRN (11:54)
[2018-04-04] MEDS: hydrOXYzine HCL 25 MG TABLET PO PRN (11:54)
[2018-04-04] MEDS: ONDANSETRON ODT 4 MG TAB.RAPDIS PO PRN ×2 (12:24→20:48)
[2018-04-04] MEDS: METOCLOPRAMIDE 5 MG TABLET PO PRN (15:13)
[2018-04-04 16:07] VITALS: BP 98/74
[2018-04-04] MEDS: SIMVASTATIN 40 MG TABLET. PO SCH (20:44)
[2018-04-04] MEDS: MELATONIN 3 MG TABLET PO PRN (20:48)
--- NOTE | 2018-04-04 20:57 | PDOC ---
Exam Note: Johnny Note: Please also refer to the separate dictated note~for this date of service dictated separately.~Patient seen individually. Discussed the patient with Nursing staff reviewed the chart.~Reviewed interim history and current functioning. Reviewed vital signs,~Labs/ Radiology~and current medications noted below. Continue current treatment with the changes noted in the dictated addendum note Assessment: Vital Signs: Vital Signs Date Time Temp Pulse Resp B/P (MAP) Pulse Ox O2 Delivery O2 Flow Rate FiO2 04/04/18 17:00 110 98/74 04/04/18 16:07 98.7 22 98 Room Air I&O Intake and Output 04/04/18 06:59 Intake Total 720 ml Balance 720 ml Intake Oral 720 ml # Voids 1 Current Medications: Meds: Current Medications Acetaminophen (Tylenol) 650 mg PRN Q6HRS PRN PO PAIN / TEMP Last administered on 04/02/18at 11:45; Start 04/01/18 at 23:00 Multi-Ingredient Ointment (Analgesic [place]) 1 bushra PRN QID PRN TP MUSCLE PAIN; Start 04/01/18 at 23:00 Al Hydroxide/Mg Hydroxide (Mylanta Plus Xs) 15 ml PRN AFTMEALHC PRN PO DYSPEPSIA Last administered on 04/02/18at 12:27; Start 04/01/18 at 23:00 Magnesium Hydroxide (Milk Of Magnesia) 2,400 mg PRN QHS PRN PO CONSTIPATION; Start 04/01/18 at 23:00 Alprazolam (Xanax) 0.5 mg TID PO Last administered on 04/04/18at 20:48; Start at 09:00 Duloxetine HCl (Cymbalta) 60 mg DAILY PO Last administered on 04/04/18at 10:13; Start 04/02/18 at 09:00 Melatonin 6 mg PRN QHS PRN PO INSOMNIA Last administered on 04/04/18at 20:48; Start 04/01/18 at 23:45 Albuterol Sulfate (Ventolin) 2.5 mg PRN Q6HRS PRN NEB SHORTNESS OF BREATH; Start 04/01/18 at 23:30 Chlorhexidine Gluconate (Peridex) 15 ml BID SWSP Last administered on at 20:43; Start 04/02/18 at 09:00 Cyanocobalamin (Vitamin B-12) 1,000 mcg DAILY PO Last administered on at 08:51; Start 04/02/18 at 09:00; Status Future Hold Guaifenesin (Robitussin) 300 mg PRN Q6HRS PRN PO COUGH; Start 04/01/18 at 23:30 Lisinopril (Prinivil) 10 mg DAILY PO Last administered on 04/04/18at 10:14; Start 04/02/18 at 09:00 Simvastatin (Zocor) 40 mg HS PO Last administered on 04/04/18at 20:44; Start at 21:00 Bisacodyl (Dulcolax Supp) 10 mg PRN DAILY PRN [place] CONSTIPATION; Start 04/01/18 at 23:45 Calcium/Vitamin D (Oscal D 500mg/ 200uts) 1 tab BIDWMEALS PO Last administered on 04/04/18 10:13; Start 04/02/18 at 08:00 Artificial Tears (Artificial Tears) 1 drop QID OU Last administered on at 18:04; Start 04/02/18 at 09:00 Carvedilol (Coreg) 6.25 mg BIDWMEALS PO Last administered on 04/04/18at 10:13; Start 04/02/18 at 08:00 Cyclobenzaprine HCl (Flexeril) 5 mg PRN Q8HRS PRN PO MUSCLE SPASMS Last administered on 04/04/18at 11:54; Start 04/01/18 at 23:45 Dicyclomine HCl (Bentyl) 20 mg QID PO Last administered on 04/04/18at 20:44; Start 04/02/18 at 09:00 Docusate Sodium (Colace) 100 mg PRN DAILY PRN PO CONSTIPATION; Start 04/01/18 at 23:45 Famotidine (Pepcid) 20 mg DAILY PO ; Start 04/02/18 at 09:00; Stop 04/02/18 at 09:00; Status DC Fentanyl (Duragesic 12mcg/ Hr) 1 patch Q3DAYS TD ; Start 04/04/18 at 09:00; Stop 04/04/18 at 09:00; Status DC Lactase (Lactaid) 9,000 unit TIDWMEALS PO Last administered on 04/04/18at 17:37 ; Start 04/02/18 at 08:00 Loperamide HCl (Imodium) 2 mg PRN Q4HRS PRN PO DIARRHEA; Start 04/01/18 at 23: 45 Non-Formulary Medication (Mag Hydrox/ Aluminum Hyd/ Simeth (Maalox Advanced Suspension)) 30 ml PRN Q6HRS PRN PO DYSPEPSIA; Start 04/01/18 at 23:30; Status UNV Non-Formulary Medication (Menthol (Biofreeze)) 1 bushra PRN Q6HRS PRN TP PAIN; Start 04/01/18 at 23:30; Status UNV Metoclopramide HCl (Reglan) 5 mg DAILY PO Last administered on 04/04/18at 10:13 ; Start 04/02/18 at 09:00 Metoclopramide HCl (Reglan) 5 mg PRN Q6HRS PRN PO NAUSEA/VOMITING Last administered on 04/04/18at 15:13; Start 04/01/18 at 23:45 Multi-Ingred Cream/Lotion/Oil/ Oint (Hydrocerin) 1 bushra QHS TP Last administered on 04/03/18at 19:06; Start 04/02/18 at 21:00 Pantoprazole Sodium (Protonix) 40 mg QHS PO ; Start 04/02/18 at 21:00; Stop at 21:00; Status DC Ondansetron HCl (Zofran Odt) 4 mg PRN Q8HRS PRN PO NAUSEA/VOMITING Last administered on 04/04/18at 20:48; Start 04/01/18 at 23:45 Oxybutynin Chloride (Ditropan) 5 mg BID PO Last administered on 04/04/18at 20:43 ; Start 04/02/18 at 09:00 Oxycodone HCl (Roxicodone) 5 mg PRN Q6HRS PRN PO PAIN Last administered on 04/03at 11:34; Start 04/01/18 at 23:45 Throat Lozenges (Cepacol Sore Throat Lozenge) 1 bela PRN Q2HR PRN PO SORE THROAT ; Start 04/01/18 at 23:45 Fentanyl (Duragesic 25mcg/ Hr) 1 patch Q3DAYS TD ; Start 04/04/18 at 09:00; Stop 04/04/18 at 09:00; Status DC Info (Do NOT chart on this placeholder) 1 each 1X ONCE MC Last administered on 04/02/18at 00:00; Start 04/02/18 at 00:00; Stop 04/02/18 at 00:01; Status DC Famotidine (Pepcid) 20 mg BID PO Last administered on 04/04/18at 20:43; Start at 09:00 Fentanyl (Duragesic 12mcg/ Hr) 1 patch Q3DAYS TD Last administered on at 14:22; Start 04/02/18 at 14:00 Fentanyl (Duragesic 25mcg/ Hr) 1 patch Q3DAYS TD Last administered on at 14:22; Start 04/02/18 at 14:00 Hydroxyzine HCl (Atarax) 25 mg PRN Q2HR PRN PO ANXIETY Last administered on at 11:54; Start 04/03/18 at 18:30 Quetiapine Fumarate (SEROquel) 12.5 mg 0900,1300,1700 PO Last administered on at 17:35; Start 04/04/18 at 09:00 Active Scripts Active Reported Fentanyl 1 Each Patch.td72 37.5 Mcg TD Q3DAYS Ondansetron Hcl 4 Mg Tablet 4 Mg PO PRN Q8HRS PRN Xanax (Alprazolam) 0.5 Mg Tablet 0.5 Mg PO TID Throat Drops (Pectin) 2.8 Mg Lozenge 1 Unit PO PRN Q3HRS PRN Simvastatin 40 Mg Tablet 40 Mg PO HS Reglan (Metoclopramide Hcl) 5 Mg Tablet 5 Mg PO DAILY Reglan (Metoclopramide Hcl) 5 Mg Tablet 5 Mg PO PRN Q6HRS PRN Refresh Optive Eye Drops (Carboxymethylcellulos/Glycerin) 15 Ml Drops 1 Drop EACHEYE QID Oyster Shell 500 Mg + Vit D Tb (Calcium Carbonate/Vitamin D3) 1 Each Tablet 1 Tab PO BID Oxycodone Hcl 5 Mg Capsule 5 Mg PO PRN Q6HRS PRN Oxybutynin Chloride Er (Oxybutynin Chloride) 10 Mg Tab.er.24 10 Mg PO DAILY Omeprazole 40 Mg Capsule.dr 40 Mg PO HS Maalox Advanced Suspension (Mag Hydrox/Aluminum Hyd/Simeth) 355 Ml Oral.susp 30 Ml PO PRN Q6HRS PRN Melatonin 5 Mg Tablet (Melatonin/Pyridoxine) 1 Each Tablet 5 Mg PO PRN QHS PRN Lisinopril 10 Mg Tablet 10 Mg PO DAILY Lactase 3,000 Unit Tablet 3 Tab PO TIDWMEALS Imodium A-D (Loperamide HCl) 2 Mg Capsule 2 Mg PO PRN Q4HRS PRN Guaifenesin 100 Mg/5 Ml Liquid 15 Ml PO PRN Q6HRS PRN Famotidine 20 Mg Tablet 20 Mg PO DAILY Dicyclomine Hcl 20 Mg Tablet 20 Mg PO QID Cymbalta (Duloxetine Hcl) 60 Mg Capsule.dr 60 Mg PO DAILY Cyclobenzaprine Hcl 5 Mg Tablet 5 Mg PO PRN Q8HRS PRN Vitamin B-12 (Cyanocobalamin (Vitamin B-12)) 1,000 Mcg Tablet 1,000 Mcg PO DAILY Colace (Docusate Sodium) 100 Mg Capsule 100 Mg PO PRN DAILY PRN Peridex (Chlorhexidine Gluconate) 15 Ml Mouthwash 15 Ml PO BID Carvedilol 6.25 Mg Tablet 6.25 Mg PO BIDWMEALS Bisacodyl 10 Mg Supp.rect 10 Mg RC PRN DAILY PRN Biofreeze (Menthol) 118 Ml Gel..ml. 1 Bushra TP PRN Q6HRS PRN Aquaphor Ointment (Mineral Oil/Hydrophil Petrolat) 396 Gm Oint...g. 1 Bushra TP HS Albuterol Sulfate Neb Soln (Albuterol Sulfate) 2.5 Mg/3 Ml Vial.neb 3 Ml NEB PRN Q6HRS PRN I have reviewed the current psychotropics carefully including drug interactions. Risk benefit ratio favors no change other than as noted in my dictated progress note. Diagnosis: Problems: (1) Mental status alteration (2) Anxiety disorder (3) Bipolar affective disorder, mixed (4) Dementia in Alzheimer's disease with depression (5) Dementia in Alzheimer's disease with delusions (6) Dementia, vascular, with delusions (7) Dementia, vascular, with depression (8) Impulse control disorder KALIE RODRÍGUEZ MD Apr 04, 2018 20:57
[2018-04-04] MEDS: MINERAL OIL/PETROLATUM TOPICAL CREAM 113GM JAR. TP SCH (21:00)
[2018-04-05 06:02] VITALS: BP 108/54
[2018-04-05] MEDS: OXYBUTYNIN CHLORIDE 5 MG TABLET PO SCH ×2 (07:40→20:59)
[2018-04-05] MEDS: CHLORHEXIDINE 0.12% 15 ML MOUTHWASH. SWSP SCH ×3 (07:40→21:00)
[2018-04-05] MEDS: CALCIUM CARB/VIT D3 500/200 TABLET PO SCH ×2 (07:40→16:58)
[2018-04-05] MEDS: CARVEDILOL 6.25 MG TABLET PO SCH ×2 (07:41→16:57)
[2018-04-05] MEDS: LACTASE 3,000 UNIT TABLET PO SCH ×3 (07:41→16:58)
[2018-04-05] MEDS: FAMOTIDINE 20 MG TABLET PO SCH ×2 (07:41→20:59)
[2018-04-05] MEDS: QUEtiapine 25 MG TABLET. PO SCH ×3 (07:41→16:58)
[2018-04-05] MEDS: DICYCLOMINE HCL 20 MG TABLET PO SCH ×4 (07:41→20:59)
[2018-04-05] MEDS: DULoxetine HCL 60 MG CAPSULE.DR PO SCH (07:41)
[2018-04-05] MEDS: METOCLOPRAMIDE 5 MG TABLET PO SCH (07:41)
[2018-04-05] MEDS: LISINOPRIL 10 MG TABLET PO SCH (07:42)
[2018-04-05] MEDS: ALPRAZolam 0.5 MG TABLET PO SCH ×3 (07:53→21:10)
[2018-04-05] MEDS: fentaNYL 12MCG/HR 1 PATCH PATCH TD SCH (07:53)
[2018-04-05] MEDS: fentaNYL 25MCG/HR 1 PATCH PATCH TD SCH (07:54)
[2018-04-05] MEDS: POLYVINYL ALCOHOL 1.4% OPHTH SOLUTION 15ML BOTTLE. OU SCH ×4 (07:54→21:00)
[2018-04-05] MEDS: CEFEPIME HCL 1 GM VIAL IM SCH (13:54)
[2018-04-05 15:58] VITALS: BP 96/55
[2018-04-05] MEDS: ONDANSETRON ODT 4 MG TAB.RAPDIS PO PRN (17:38)
--- NOTE | 2018-04-05 20:04 | PDOC ---
Exam Note: Johnny Note: Please also refer to the separate dictated note~for this date of service dictated separately.~Patient seen individually. Discussed the patient with Nursing staff reviewed the chart.~Reviewed interim history and current functioning. Reviewed vital signs,~Labs/ Radiology~and current medications noted below. Continue current treatment with the changes noted in the dictated addendum note Assessment: Vital Signs: Vital Signs Date Time Temp Pulse Resp B/P (MAP) Pulse Ox O2 Delivery O2 Flow Rate FiO2 04/05/18 16:57 84 96/55 04/05/18 15:58 98.0 16 96 04/04/18 16:07 Room Air I&O Intake and Output 04/05/18 06:59 Intake Total 480 ml Balance 480 ml Intake Oral 480 ml Current Medications: Meds: Current Medications Acetaminophen (Tylenol) 650 mg PRN Q6HRS PRN PO PAIN / TEMP Last administered on 04/02/18at 11:45; Start 04/01/18 at 23:00 Multi-Ingredient Ointment (Analgesic [place]) 1 bushra PRN QID PRN TP MUSCLE PAIN; Start 04/01/18 at 23:00 Al Hydroxide/Mg Hydroxide (Mylanta Plus Xs) 15 ml PRN AFTMEALHC PRN PO DYSPEPSIA Last administered on 04/02/18at 12:27; Start 04/01/18 at 23:00 Magnesium Hydroxide (Milk Of Magnesia) 2,400 mg PRN QHS PRN PO CONSTIPATION; Start 04/01/18 at 23:00 Alprazolam (Xanax) 0.5 mg TID PO Last administered on 04/05/18at 13:43; Start at 09:00; Stop 04/05/18 at 18:13; Status DC Duloxetine HCl (Cymbalta) 60 mg DAILY PO Last administered on 04/05/18at 07:41; Start 04/02/18 at 09:00 Melatonin 6 mg PRN QHS PRN PO INSOMNIA Last administered on 04/04/18at 20:48; Start 04/01/18 at 23:45 Albuterol Sulfate (Ventolin) 2.5 mg PRN Q6HRS PRN NEB SHORTNESS OF BREATH; Start 04/01/18 at 23:30 Chlorhexidine Gluconate (Peridex) 15 ml BID SWSP Last administered on 07:40; Start 04/02/18 at 09:00 Cyanocobalamin (Vitamin B-12) 1,000 mcg DAILY PO Last administered on at 08:51; Start 04/02/18 at 09:00; Status Future Hold Guaifenesin (Robitussin) 300 mg PRN Q6HRS PRN PO COUGH; Start 04/01/18 at 23:30 Lisinopril (Prinivil) 10 mg DAILY PO Last administered on 04/04/18at 10:14; Start 04/02/18 at 09:00 Simvastatin (Zocor) 40 mg HS PO Last administered on 04/04/18at 20:44; Start at 21:00 Bisacodyl (Dulcolax Supp) 10 mg PRN DAILY PRN [place] CONSTIPATION; Start 04/01/18 at 23:45 Calcium/Vitamin D (Oscal D 500mg/ 200uts) 1 tab BIDWMEALS PO Last administered on 04/05/18 07:40; Start 04/02/18 at 08:00 Artificial Tears (Artificial Tears) 1 drop QID OU Last administered on 16:58; Start 04/02/18 at 09:00 Carvedilol (Coreg) 6.25 mg BIDWMEALS PO Last administered on 04/04/18 10:13; Start 04/02/18 at 08:00 Cyclobenzaprine HCl (Flexeril) 5 mg PRN Q8HRS PRN PO MUSCLE SPASMS Last administered on 04/04/18 11:54; Start 04/01/18 at 23:45 Dicyclomine HCl (Bentyl) 20 mg QID PO Last administered on 04/05/18at 16:57; Start 04/02/18 at 09:00 Docusate Sodium (Colace) 100 mg PRN DAILY PRN PO CONSTIPATION; Start 04/01/18 at 23:45 Famotidine (Pepcid) 20 mg DAILY PO ; Start 04/02/18 at 09:00; Stop 04/02/18 at 09:00; Status DC Fentanyl (Duragesic 12mcg/ Hr) 1 patch Q3DAYS TD ; Start 04/04/18 at 09:00; Stop 04/04/18 at 09:00; Status DC Lactase (Lactaid) 9,000 unit TIDWMEALS PO Last administered on 04/05/18at 16:58 ; Start 04/02/18 at 08:00 Loperamide HCl (Imodium) 2 mg PRN Q4HRS PRN PO DIARRHEA; Start 04/01/18 at 23: 45 Non-Formulary Medication (Mag Hydrox/ Aluminum Hyd/ Simeth (Maalox Advanced Suspension)) 30 ml PRN Q6HRS PRN PO DYSPEPSIA; Start 04/01/18 at 23:30; Status UNV Non-Formulary Medication (Menthol (Biofreeze)) 1 bushra PRN Q6HRS PRN TP PAIN; Start 04/01/18 at 23:30; Status UNV Metoclopramide HCl (Reglan) 5 mg DAILY PO Last administered on 04/05/18at 07:41 ; Start 04/02/18 at 09:00 Metoclopramide HCl (Reglan) 5 mg PRN Q6HRS PRN PO NAUSEA/VOMITING Last administered on 04/04/18at 15:13; Start 04/01/18 at 23:45 Multi-Ingred Cream/Lotion/Oil/ Oint (Hydrocerin) 1 bushra QHS TP Last administered on 04/03/18at 19:06; Start 04/02/18 at 21:00 Pantoprazole Sodium (Protonix) 40 mg QHS PO ; Start 04/02/18 at 21:00; Stop at 21:00; Status DC Ondansetron HCl (Zofran Odt) 4 mg PRN Q8HRS PRN PO NAUSEA/VOMITING Last administered on 04/05/18at 17:38; Start 04/01/18 at 23:45 Oxybutynin Chloride (Ditropan) 5 mg BID PO Last administered on 04/05/18at 07:40 ; Start 04/02/18 at 09:00 Oxycodone HCl (Roxicodone) 5 mg PRN Q6HRS PRN PO PAIN Last administered on 04/03at 11:34; Start 04/01/18 at 23:45 Throat Lozenges (Cepacol Sore Throat Lozenge) 1 bela PRN Q2HR PRN PO SORE THROAT ; Start 04/01/18 at 23:45 Fentanyl (Duragesic 25mcg/ Hr) 1 patch Q3DAYS TD ; Start 04/04/18 at 09:00; Stop 04/04/18 at 09:00; Status DC Info (Do NOT chart on this placeholder) 1 each 1X ONCE MC Last administered on 04/02/18at 00:00; Start 04/02/18 at 00:00; Stop 04/02/18 at 00:01; Status DC Famotidine (Pepcid) 20 mg BID PO Last administered on 04/05/18at 07:41; Start at 09:00 Fentanyl (Duragesic 12mcg/ Hr) 1 patch Q3DAYS TD Last administered on at 07:53; Start 04/02/18 at 14:00 Fentanyl (Duragesic 25mcg/ Hr) 1 patch Q3DAYS TD Last administered on at 07:54; Start 04/02/18 at 14:00 Hydroxyzine HCl (Atarax) 25 mg PRN Q2HR PRN PO ANXIETY Last administered on at 11:54; Start 04/03/18 at 18:30 Quetiapine Fumarate (SEROquel) 12.5 mg 0900,1300,1700 PO Last administered on at 16:58; Start 04/04/18 at 09:00 Ertapenem 1 gm/ Sodium Chloride 50 ml @ 100 mls/hr DAILY IV ; Start 04/11/18 at 09:00; Stop 04/11/18 at 09:00; Status DC Cefepime HCl (Maxipime) 1 gm Q24H IM Last administered on 04/05/18at 13:54; Start 04/05/18 at 13:30 Alprazolam (Xanax) 0.5 mg BID PO ; Start 04/05/18 at 21:00 Alprazolam (Xanax) 0.25 mg DAILY@1400 PO ; Start 04/06/18 at 14:00 Active Scripts Active Reported Fentanyl 1 Each Patch.td72 37.5 Mcg TD Q3DAYS Ondansetron Hcl 4 Mg Tablet 4 Mg PO PRN Q8HRS PRN Xanax (Alprazolam) 0.5 Mg Tablet 0.5 Mg PO TID Throat Drops (Pectin) 2.8 Mg Lozenge 1 Unit PO PRN Q3HRS PRN Simvastatin 40 Mg Tablet 40 Mg PO HS Reglan (Metoclopramide Hcl) 5 Mg Tablet 5 Mg PO DAILY Reglan (Metoclopramide Hcl) 5 Mg Tablet 5 Mg PO PRN Q6HRS PRN Refresh Optive Eye Drops (Carboxymethylcellulos/Glycerin) 15 Ml Drops 1 Drop EACHEYE QID Oyster Shell 500 Mg + Vit D Tb (Calcium Carbonate/Vitamin D3) 1 Each Tablet 1 Tab PO BID Oxycodone Hcl 5 Mg Capsule 5 Mg PO PRN Q6HRS PRN Oxybutynin Chloride Er (Oxybutynin Chloride) 10 Mg Tab.er.24 10 Mg PO DAILY Omeprazole 40 Mg Capsule.dr 40 Mg PO HS Maalox Advanced Suspension (Mag Hydrox/Aluminum Hyd/Simeth) 355 Ml Oral.susp 30 Ml PO PRN Q6HRS PRN Melatonin 5 Mg Tablet (Melatonin/Pyridoxine) 1 Each Tablet 5 Mg PO PRN QHS PRN Lisinopril 10 Mg Tablet 10 Mg PO DAILY Lactase 3,000 Unit Tablet 3 Tab PO TIDWMEALS Imodium A-D (Loperamide HCl) 2 Mg Capsule 2 Mg PO PRN Q4HRS PRN Guaifenesin 100 Mg/5 Ml Liquid 15 Ml PO PRN Q6HRS PRN Famotidine 20 Mg Tablet 20 Mg PO DAILY Dicyclomine Hcl 20 Mg Tablet 20 Mg PO QID Cymbalta (Duloxetine Hcl) 60 Mg Capsule.dr 60 Mg PO DAILY Cyclobenzaprine Hcl 5 Mg Tablet 5 Mg PO PRN Q8HRS PRN Vitamin B-12 (Cyanocobalamin (Vitamin B-12)) 1,000 Mcg Tablet 1,000 Mcg PO DAILY Colace (Docusate Sodium) 100 Mg Capsule 100 Mg PO PRN DAILY PRN Peridex (Chlorhexidine Gluconate) 15 Ml Mouthwash 15 Ml PO BID Carvedilol 6.25 Mg Tablet 6.25 Mg PO BIDWMEALS Bisacodyl 10 Mg Supp.rect 10 Mg RC PRN DAILY PRN Biofreeze (Menthol) 118 Ml Gel..ml. 1 [place] TP PRN Q6HRS PRN Aquaphor Ointment (Mineral Oil/Hydrophil Petrolat) 396 Gm Oint...g. 1 [place]ra TP HS Albuterol Sulfate Neb Soln (Albuterol Sulfate) 2.5 Mg/3 Ml Vial.neb 3 Ml NEB PRN Q6HRS PRN I have reviewed the current psychotropics carefully including drug interactions. Risk benefit ratio favors no change other than as noted in my dictated progress note. Diagnosis: Problems: (1) Mental status alteration (2) Anxiety disorder (3) Bipolar affective disorder, mixed (4) Dementia in Alzheimer's disease with depression (5) Dementia in Alzheimer's disease with delusions (6) Dementia, vascular, with delusions (7) Dementia, vascular, with depression (8) Impulse control disorder KALIE RODRÍGUEZ MD Apr 05, 2018 20:04
[2018-04-05] MEDS: SIMVASTATIN 40 MG TABLET. PO SCH (20:59)
[2018-04-05] MEDS: MINERAL OIL/PETROLATUM TOPICAL CREAM 113GM JAR. TP SCH (21:01)
--- NOTE | 2018-04-06 00:21 | PN ---
DATE: 04/03/2018 PSYCHIATRIC PROGRESS NOTE This is a late entry, date of service 04/03/2018, covers elements not covered in my initial note. SUBJECTIVE: I met with the patient in the evening. The patient slept 6 hours previous evening. Per nursing report extremely medication seeking, constantly complaining of vague somatic pain including GI, chest wall pain. Dr. Barajas has evaluated her. She ate nothing for breakfast, lunch, poorly for dinner, did drink Boost. REVIEW OF SYSTEMS: Positive for the above pain, impaired ambulation with walker. No CV, , GI, or pulmonary system symptoms on review other than above. MENTAL STATUS EXAM: Oriented to herself and situation. Speech coherent, rapid at times. Abstraction fair, computation impaired, language function intact, attention span short. Mood and affect is labile. LABORATORY DATA: Reviewed. IMPRESSION: Bipolar 1 disorder, mixed; anxiety disorder, unspecified; major neurocognitive disorder, Alzheimer, vascular with delusion, depression. PLAN: Start Seroquel 12.5 mg 9 a.m., 1:00 p.m., 5:00 p.m. as a mood stabilizer. Maintain Rest unchanged from initial note. We will get past psychiatric records for her bipolar disorder. MAN Ziggy RODRÍGUEZ MD DR: SHIRA/tessie JOB#: [id number] / [id number]
--- NOTE | 2018-04-06 00:44 | PN ---
DATE: 04/04/2018 PSYCHIATRIC PROGRESS NOTE This is a late entry 04/04/2018 covers elements not covered in my initial note 04/04/2018. SUBJECTIVE: I met with the patient in the evening, and she was staffed at a treatment team meeting with the entire team in the morning. Appetite 75%, sleeping average 7 hours, slept 7-3/4 hours previous evening, still fixated on various somatic complaints of abdominal pain, some chest pain, will defer to Dr. Barajas. This appears related to her anxiety and ongoing mood disorder. Blood pressure was slightly low. Coreg was held. REVIEW OF SYSTEMS: Ambulation impaired, in wheelchair and the somatic symptoms noted above. I met with her in her room at length and on two separate occasions after that she followed me around for her somatic symptoms. MENTAL STATUS EXAM: Oriented to herself, situation at times. Speech coherent, rapid at times. Abstraction fair, computation impaired, language function intact, attention span short. Mood and affect remains anxious, labile. LABORATORY DATA: Reviewed. UA shows E. coli positive, greater than 100,000 gram-negative rods, which could well be contributing to her psychiatric symptoms and anxiety. Culture sensitivity is awaited and we will defer this treatment to Dr. Barajas. IMPRESSION: Bipolar 1 disorder, mixed with psychotic features; major neurocognitive disorder, early Alzheimer, vascular with delusion, depression, urinary tract infection. Rest unchanged. PLAN: Continue psychotropics from initial note. Treat the UTI per Dr. Barajas. Rest depending on her progress. KALIE RODRÍGUEZ MD DR: SHIRA/tessie JOB#: [id number] / [id number]
[2018-04-06 06:00] VITALS: BP 129/58
[2018-04-06] MEDS: CARVEDILOL 6.25 MG TABLET PO SCH ×2 (08:03→18:38)
[2018-04-06] MEDS: DULoxetine HCL 60 MG CAPSULE.DR PO SCH (08:03)
[2018-04-06] MEDS: DICYCLOMINE HCL 20 MG TABLET PO SCH ×4 (08:03→19:15)
[2018-04-06] MEDS: FAMOTIDINE 20 MG TABLET PO SCH ×2 (08:03→19:15)
[2018-04-06] MEDS: CHLORHEXIDINE 0.12% 15 ML MOUTHWASH. SWSP SCH ×2 (08:03→19:15)
[2018-04-06] MEDS: LACTASE 3,000 UNIT TABLET PO SCH ×3 (08:03→18:39)
[2018-04-06] MEDS: METOCLOPRAMIDE 5 MG TABLET PO SCH (08:04)
[2018-04-06] MEDS: CALCIUM CARB/VIT D3 500/200 TABLET PO SCH ×2 (08:04→17:00)
[2018-04-06] MEDS: OXYBUTYNIN CHLORIDE 5 MG TABLET PO SCH ×2 (08:04→19:25)
[2018-04-06] MEDS: LISINOPRIL 10 MG TABLET PO SCH (08:04)
[2018-04-06] MEDS: QUEtiapine 25 MG TABLET. PO SCH ×3 (08:04→18:39)
[2018-04-06] MEDS: ALPRAZolam 0.5 MG TABLET PO SCH ×3 (08:05→19:32)
[2018-04-06] MEDS: POLYVINYL ALCOHOL 1.4% OPHTH SOLUTION 15ML BOTTLE. OU SCH ×4 (08:05→19:32)
[2018-04-06] MEDS: ALPRAZolam 0.25 MG TABLET PO SCH (13:27)
[2018-04-06] MEDS: CEFEPIME HCL 1 GM VIAL IM SCH (14:23)
[2018-04-06] MEDS: ONDANSETRON ODT 4 MG TAB.RAPDIS PO PRN (14:23)
[2018-04-06 16:19] VITALS: BP 110/51
[2018-04-06] MEDS: SIMVASTATIN 40 MG TABLET. PO SCH (19:15)
[2018-04-06] MEDS: MINERAL OIL/PETROLATUM TOPICAL CREAM 113GM JAR. TP SCH (19:25)
[2018-04-06] MEDS: LACTOBACILLUS RHAMNOSUS GG 1 CAPSULE. PO SCH (19:34)
--- NOTE | 2018-04-06 22:31 | PDOC ---
Exam Note: Johnny Note: Please also refer to the separate dictated note~for this date of service dictated separately.~Patient seen individually. Discussed the patient with Nursing staff reviewed the chart.~Reviewed interim history and current functioning. Reviewed vital signs,~Labs/ Radiology~and current medications noted below. Continue current treatment with the changes noted in the dictated addendum note Assessment: Vital Signs: Vital Signs Date Time Temp Pulse Resp B/P (MAP) Pulse Ox O2 Delivery O2 Flow Rate FiO2 04/06/18 18:38 90 110/51 04/06/18 16:19 98.4 18 96 04/04/18 16:07 Room Air I&O Intake and Output 04/06/18 06:59 Intake Total 0 ml Balance 0 ml Intake Oral 0 ml Current Medications: Meds: Current Medications Acetaminophen (Tylenol) 650 mg PRN Q6HRS PRN PO PAIN / TEMP Last administered on 04/02/18at 11:45; Start 04/01/18 at 23:00 Multi-Ingredient Ointment (Analgesic [place]) 1 bushra PRN QID PRN TP MUSCLE PAIN; Start 04/01/18 at 23:00 Al Hydroxide/Mg Hydroxide (Mylanta Plus Xs) 15 ml PRN AFTMEALHC PRN PO DYSPEPSIA Last administered on 04/02/18at 12:27; Start 04/01/18 at 23:00 Magnesium Hydroxide (Milk Of Magnesia) 2,400 mg PRN QHS PRN PO CONSTIPATION; Start 04/01/18 at 23:00 Alprazolam (Xanax) 0.5 mg TID PO Last administered on 04/05/18at 13:43; Start at 09:00; Stop 04/05/18 at 18:13; Status DC Duloxetine HCl (Cymbalta) 60 mg DAILY PO Last administered on 04/06/18at 08:03; Start 04/02/18 at 09:00 Melatonin 6 mg PRN QHS PRN PO INSOMNIA Last administered on 04/04/18at 20:48; Start 04/01/18 at 23:45 Albuterol Sulfate (Ventolin) 2.5 mg PRN Q6HRS PRN NEB SHORTNESS OF BREATH; Start 04/01/18 at 23:30 Chlorhexidine Gluconate (Peridex) 15 ml BID SWSP Last administered on 19:15; Start 04/02/18 at 09:00 Cyanocobalamin (Vitamin B-12) 1,000 mcg DAILY PO Last administered on 08:51; Start 04/02/18 at 09:00; Status Future Hold Guaifenesin (Robitussin) 300 mg PRN Q6HRS PRN PO COUGH; Start 04/01/18 at 23:30 Lisinopril (Prinivil) 10 mg DAILY PO Last administered on 04/06/18 08:04; Start 04/02/18 at 09:00 Simvastatin (Zocor) 40 mg HS PO Last administered on 04/06/18 19:15; Start at 21:00 Bisacodyl (Dulcolax Supp) 10 mg PRN DAILY PRN [place] CONSTIPATION; Start 04/01/18 at 23:45 Calcium/Vitamin D (Oscal D 500mg/ 200uts) 1 tab BIDWMEALS PO Last administered on 04/06/18 08:04; Start 04/02/18 at 08:00 Artificial Tears (Artificial Tears) 1 drop QID OU Last administered on 19:32; Start 04/02/18 at 09:00 Carvedilol (Coreg) 6.25 mg BIDWMEALS PO Last administered on 04/06/18 18:38; Start 04/02/18 at 08:00 Cyclobenzaprine HCl (Flexeril) 5 mg PRN Q8HRS PRN PO MUSCLE SPASMS Last administered on 04/04/18 11:54; Start 04/01/18 at 23:45 Dicyclomine HCl (Bentyl) 20 mg QID PO Last administered on 04/06/18 19:15; Start 04/02/18 at 09:00 Docusate Sodium (Colace) 100 mg PRN DAILY PRN PO CONSTIPATION; Start 04/01/18 at 23:45 Famotidine (Pepcid) 20 mg DAILY PO ; Start 04/02/18 at 09:00; Stop 04/02/18 at 09:00; Status DC Fentanyl (Duragesic 12mcg/ Hr) 1 patch Q3DAYS TD ; Start 04/04/18 at 09:00; Stop 04/04/18 at 09:00; Status DC Lactase (Lactaid) 9,000 unit TIDWMEALS PO Last administered on 04/06/18at 18:39 ; Start 04/02/18 at 08:00 Loperamide HCl (Imodium) 2 mg PRN Q4HRS PRN PO DIARRHEA; Start 04/01/18 at 23: 45 Non-Formulary Medication (Mag Hydrox/ Aluminum Hyd/ Simeth (Maalox Advanced Suspension)) 30 ml PRN Q6HRS PRN PO DYSPEPSIA; Start 04/01/18 at 23:30; Status UNV Non-Formulary Medication (Menthol (Biofreeze)) 1 bushra PRN Q6HRS PRN TP PAIN; Start 04/01/18 at 23:30; Status UNV Metoclopramide HCl (Reglan) 5 mg DAILY PO Last administered on 04/06/18 08:04 ; Start 04/02/18 at 09:00 Metoclopramide HCl (Reglan) 5 mg PRN Q6HRS PRN PO NAUSEA/VOMITING Last administered on 04/04/18at 15:13; Start 04/01/18 at 23:45 Multi-Ingred Cream/Lotion/Oil/ Oint (Hydrocerin) 1 bushra QHS TP Last administered on 04/06/18 19:25; Start 04/02/18 at 21:00 Pantoprazole Sodium (Protonix) 40 mg QHS PO ; Start 04/02/18 at 21:00; Stop at 21:00; Status DC Ondansetron HCl (Zofran Odt) 4 mg PRN Q8HRS PRN PO NAUSEA/VOMITING Last administered on 04/06/18 14:23; Start 04/01/18 at 23:45 Oxybutynin Chloride (Ditropan) 5 mg BID PO Last administered on 04/06/18 19:25 ; Start 04/02/18 at 09:00 Oxycodone HCl (Roxicodone) 5 mg PRN Q6HRS PRN PO PAIN Last administered on 04/03at 11:34; Start 04/01/18 at 23:45 Throat Lozenges (Cepacol Sore Throat Lozenge) 1 bela PRN Q2HR PRN PO SORE THROAT ; Start 04/01/18 at 23:45 Fentanyl (Duragesic 25mcg/ Hr) 1 patch Q3DAYS TD ; Start 04/04/18 at 09:00; Stop 04/04/18 at 09:00; Status DC Info (Do NOT chart on this placeholder) 1 each 1X ONCE MC Last administered on 04/02/18at 00:00; Start 04/02/18 at 00:00; Stop 04/02/18 at 00:01; Status DC Famotidine (Pepcid) 20 mg BID PO Last administered on 04/06/18 19:15; Start at 09:00 Fentanyl (Duragesic 12mcg/ Hr) 1 patch Q3DAYS TD Last administered on 07:53; Start 04/02/18 at 14:00 Fentanyl (Duragesic 25mcg/ Hr) 1 patch Q3DAYS TD Last administered on 07:54; Start 04/02/18 at 14:00 Hydroxyzine HCl (Atarax) 25 mg PRN Q2HR PRN PO ANXIETY Last administered on at 11:54; Start 04/03/18 at 18:30 Quetiapine Fumarate (SEROquel) 12.5 mg 0900,1300,1700 PO Last administered on 18:39; Start 04/04/18 at 09:00; Stop 04/06/18 at 18:51; Status DC Ertapenem 1 gm/ Sodium Chloride 50 ml @ 100 mls/hr DAILY IV ; Start 04/11/18 at 09:00; Stop 04/11/18 at 09:00; Status DC Cefepime HCl (Maxipime) 1 gm Q24H IM Last administered on 04/06/18at 14:23; Start 04/05/18 at 13:30 Alprazolam (Xanax) 0.5 mg BID PO Last administered on 04/06/18 19:32; Start at 21:00 Alprazolam (Xanax) 0.25 mg DAILY@1400 PO Last administered on 04/06/18 13:27; Start 04/06/18 at 14:00 Lactobacillus Rhamnosus (Culturelle) 1 cap BID PO Last administered on at 19:34; Start 6/30/18 at 21:00 Quetiapine Fumarate (SEROquel) 25 mg BIDWMEALS PO ; Start 04/07/18 at 08:00 Quetiapine Fumarate (SEROquel) 12.5 mg DAILYWLUN PO ; Start 04/07/18 at 12:00 Active Scripts Active Reported Fentanyl 1 Each Patch.td72 37.5 Mcg TD Q3DAYS Ondansetron Hcl 4 Mg Tablet 4 Mg PO PRN Q8HRS PRN Xanax (Alprazolam) 0.5 Mg Tablet 0.5 Mg PO TID Throat Drops (Pectin) 2.8 Mg Lozenge 1 Unit PO PRN Q3HRS PRN Simvastatin 40 Mg Tablet 40 Mg PO HS Reglan (Metoclopramide Hcl) 5 Mg Tablet 5 Mg PO DAILY Reglan (Metoclopramide Hcl) 5 Mg Tablet 5 Mg PO PRN Q6HRS PRN Refresh Optive Eye Drops (Carboxymethylcellulos/Glycerin) 15 Ml Drops 1 Drop EACHEYE QID Oyster Shell 500 Mg + Vit D Tb (Calcium Carbonate/Vitamin D3) 1 Each Tablet 1 Tab PO BID Oxycodone Hcl 5 Mg Capsule 5 Mg PO PRN Q6HRS PRN Oxybutynin Chloride Er (Oxybutynin Chloride) 10 Mg Tab.er.24 10 Mg PO DAILY Omeprazole 40 Mg Capsule.dr 40 Mg PO HS Maalox Advanced Suspension (Mag Hydrox/Aluminum Hyd/Simeth) 355 Ml Oral.susp 30 Ml PO PRN Q6HRS PRN Melatonin 5 Mg Tablet (Melatonin/Pyridoxine) 1 Each Tablet 5 Mg PO PRN QHS PRN Lisinopril 10 Mg Tablet 10 Mg PO DAILY Lactase 3,000 Unit Tablet 3 Tab PO TIDWMEALS Imodium A-D (Loperamide HCl) 2 Mg Capsule 2 Mg PO PRN Q4HRS PRN Guaifenesin 100 Mg/5 Ml Liquid 15 Ml PO PRN Q6HRS PRN Famotidine 20 Mg Tablet 20 Mg PO DAILY Dicyclomine Hcl 20 Mg Tablet 20 Mg PO QID Cymbalta (Duloxetine Hcl) 60 Mg Capsule.dr 60 Mg PO DAILY Cyclobenzaprine Hcl 5 Mg Tablet 5 Mg PO PRN Q8HRS PRN Vitamin B-12 (Cyanocobalamin (Vitamin B-12)) 1,000 Mcg Tablet 1,000 Mcg PO DAILY Colace (Docusate Sodium) 100 Mg Capsule 100 Mg PO PRN DAILY PRN Peridex (Chlorhexidine Gluconate) 15 Ml Mouthwash 15 Ml PO BID Carvedilol 6.25 Mg Tablet 6.25 Mg PO BIDWMEALS Bisacodyl 10 Mg Supp.rect 10 Mg RC PRN DAILY PRN Biofreeze (Menthol) 118 Ml Gel..ml. 1 Bushra TP PRN Q6HRS PRN Aquaphor Ointment (Mineral Oil/Hydrophil Petrolat) 396 Gm Oint...g. 1 Bushra TP HS Albuterol Sulfate Neb Soln (Albuterol Sulfate) 2.5 Mg/3 Ml Vial.neb 3 Ml NEB PRN Q6HRS PRN I have reviewed the current psychotropics carefully including drug interactions. Risk benefit ratio favors no change other than as noted in my dictated progress note. Diagnosis: Problems: (1) Mental status alteration (2) Anxiety disorder (3) Bipolar affective disorder, mixed (4) Dementia in Alzheimer's disease with depression (5) Dementia in Alzheimer's disease with delusions (6) Dementia, vascular, with delusions (7) Dementia, vascular, with depression (8) Impulse control disorder KALIE RODRÍGUEZ MD Apr 06, 2018 22:31
[2018-04-07 06:19] VITALS: BP 126/61
[2018-04-07] MEDS: LACTASE 3,000 UNIT TABLET PO SCH ×3 (07:49→18:16)
[2018-04-07] MEDS: LACTOBACILLUS RHAMNOSUS GG 1 CAPSULE. PO SCH ×2 (07:49→20:47)
[2018-04-07] MEDS: OXYBUTYNIN CHLORIDE 5 MG TABLET PO SCH ×2 (07:49→20:48)
[2018-04-07] MEDS: POLYVINYL ALCOHOL 1.4% OPHTH SOLUTION 15ML BOTTLE. OU SCH ×4 (07:49→20:57)
[2018-04-07] MEDS: DICYCLOMINE HCL 20 MG TABLET PO SCH ×4 (07:49→20:47)
[2018-04-07] MEDS: LISINOPRIL 10 MG TABLET PO SCH (07:50)
[2018-04-07] MEDS: DULoxetine HCL 60 MG CAPSULE.DR PO SCH (07:50)
[2018-04-07] MEDS: CARVEDILOL 6.25 MG TABLET PO SCH ×2 (07:50→17:00)
[2018-04-07] MEDS: FAMOTIDINE 20 MG TABLET PO SCH ×2 (07:50→20:47)
[2018-04-07] MEDS: CALCIUM CARB/VIT D3 500/200 TABLET PO SCH ×2 (07:50→17:00)
[2018-04-07] MEDS: METOCLOPRAMIDE 5 MG TABLET PO SCH (07:54)
[2018-04-07] MEDS: ALPRAZolam 0.5 MG TABLET PO SCH ×2 (07:54→20:47)
[2018-04-07] MEDS: CHLORHEXIDINE 0.12% 15 ML MOUTHWASH. SWSP SCH ×2 (07:54→20:47)
[2018-04-07] MEDS: QUEtiapine 25 MG TABLET. PO SCH ×3 (07:55→18:16)
[2018-04-07] MEDS: CEFEPIME HCL 1 GM VIAL IM SCH (15:14)
[2018-04-07] MEDS: ALPRAZolam 0.25 MG TABLET PO SCH (15:14)
[2018-04-07 16:24] VITALS: BP 104/50
[2018-04-07] MEDS: oxyCODONE IR 5 MG TABLET PO PRN (18:16)
[2018-04-07] MEDS: SIMVASTATIN 40 MG TABLET. PO SCH (20:47)
[2018-04-07] MEDS: MINERAL OIL/PETROLATUM TOPICAL CREAM 113GM JAR. TP SCH (20:57)
--- NOTE | 2018-04-07 21:04 | PDOC ---
Exam Note: Johnny Note: Please also refer to the separate dictated note~for this date of service dictated separately.~Patient seen individually. Discussed the patient with Nursing staff reviewed the chart.~Reviewed interim history and current functioning. Reviewed vital signs,~Labs/ Radiology~and current medications noted below. Continue current treatment with the changes noted in the dictated addendum note Assessment: Vital Signs: Vital Signs Date Time Temp Pulse Resp B/P (MAP) Pulse Ox O2 Delivery O2 Flow Rate FiO2 04/07/18 20:58 16 Room Air 04/07/18 17:00 84 104/50 04/07/18 16:24 98.3 93 I&O Intake and Output 04/07/18 07:00 Intake Total 0 ml Balance 0 ml Intake Oral 0 ml Current Medications: Meds: Current Medications Acetaminophen (Tylenol) 650 mg PRN Q6HRS PRN PO PAIN / TEMP Last administered on 04/02/18at 11:45; Start 04/01/18 at 23:00 Multi-Ingredient Ointment (Analgesic [place]) 1 bushra PRN QID PRN TP MUSCLE PAIN; Start 04/01/18 at 23:00 Al Hydroxide/Mg Hydroxide (Mylanta Plus Xs) 15 ml PRN AFTMEALHC PRN PO DYSPEPSIA Last administered on 04/02/18at 12:27; Start 04/01/18 at 23:00 Magnesium Hydroxide (Milk Of Magnesia) 2,400 mg PRN QHS PRN PO CONSTIPATION; Start 04/01/18 at 23:00 Alprazolam (Xanax) 0.5 mg TID PO Last administered on 04/05/18at 13:43; Start at 09:00; Stop 04/05/18 at 18:13; Status DC Duloxetine HCl (Cymbalta) 60 mg DAILY PO Last administered on 04/07/18at 07:50; Start 04/02/18 at 09:00 Melatonin 6 mg PRN QHS PRN PO INSOMNIA Last administered on 04/04/18at 20:48; Start 04/01/18 at 23:45 Albuterol Sulfate (Ventolin) 2.5 mg PRN Q6HRS PRN NEB SHORTNESS OF BREATH; Start 04/01/18 at 23:30 Chlorhexidine Gluconate (Peridex) 15 ml BID SWSP Last administered on 04/07/18 20:47; Start 04/02/18 at 09:00 Cyanocobalamin (Vitamin B-12) 1,000 mcg DAILY PO Last administered on at 08:51; Start 04/02/18 at 09:00; Status Future Hold Guaifenesin (Robitussin) 300 mg PRN Q6HRS PRN PO COUGH; Start 04/01/18 at 23:30 Lisinopril (Prinivil) 10 mg DAILY PO Last administered on 04/07/18at 07:50; Start 04/02/18 at 09:00 Simvastatin (Zocor) 40 mg HS PO Last administered on 04/07/18 20:47; Start at 21:00 Bisacodyl (Dulcolax Supp) 10 mg PRN DAILY PRN [place] CONSTIPATION; Start 04/01/18 at 23:45 Calcium/Vitamin D (Oscal D 500mg/ 200uts) 1 tab BIDWMEALS PO Last administered on 04/07/18 07:50; Start 04/02/18 at 08:00 Artificial Tears (Artificial Tears) 1 drop QID OU Last administered on at 13:00; Start 04/02/18 at 09:00 Carvedilol (Coreg) 6.25 mg BIDWMEALS PO Last administered on 04/07/18 07:50; Start 04/02/18 at 08:00 Cyclobenzaprine HCl (Flexeril) 5 mg PRN Q8HRS PRN PO MUSCLE SPASMS Last administered on 04/04/18at 11:54; Start 04/01/18 at 23:45 Dicyclomine HCl (Bentyl) 20 mg QID PO Last administered on 04/07/18 20:47; Start 04/02/18 at 09:00 Docusate Sodium (Colace) 100 mg PRN DAILY PRN PO CONSTIPATION; Start 04/01/18 at 23:45 Famotidine (Pepcid) 20 mg DAILY PO ; Start 04/02/18 at 09:00; Stop 04/02/18 at 09:00; Status DC Fentanyl (Duragesic 12mcg/ Hr) 1 patch Q3DAYS TD ; Start 04/04/18 at 09:00; Stop 04/04/18 at 09:00; Status DC Lactase (Lactaid) 9,000 unit TIDWMEALS PO Last administered on 04/07/18 18:16; Start 04/02/18 at 08:00 Loperamide HCl (Imodium) 2 mg PRN Q4HRS PRN PO DIARRHEA; Start 04/01/18 at 23: 45 Non-Formulary Medication (Mag Hydrox/ Aluminum Hyd/ Simeth (Maalox Advanced Suspension)) 30 ml PRN Q6HRS PRN PO DYSPEPSIA; Start 04/01/18 at 23:30; Status UNV Non-Formulary Medication (Menthol (Biofreeze)) 1 bushra PRN Q6HRS PRN TP PAIN; Start 04/01/18 at 23:30; Status UNV Metoclopramide HCl (Reglan) 5 mg DAILY PO Last administered on 04/07/18at 07:54; Start 04/02/18 at 09:00 Metoclopramide HCl (Reglan) 5 mg PRN Q6HRS PRN PO NAUSEA/VOMITING Last administered on 04/04/18at 15:13; Start 04/01/18 at 23:45 Multi-Ingred Cream/Lotion/Oil/ Oint (Hydrocerin) 1 bushra QHS TP Last administered on 04/06/18 19:25; Start 04/02/18 at 21:00 Pantoprazole Sodium (Protonix) 40 mg QHS PO ; Start 04/02/18 at 21:00; Stop at 21:00; Status DC Ondansetron HCl (Zofran Odt) 4 mg PRN Q8HRS PRN PO NAUSEA/VOMITING Last administered on 04/06/18at 14:23; Start 04/01/18 at 23:45 Oxybutynin Chloride (Ditropan) 5 mg BID PO Last administered on 04/07/18at 20:48 ; Start 04/02/18 at 09:00 Oxycodone HCl (Roxicodone) 5 mg PRN Q6HRS PRN PO PAIN Last administered on at 18:16; Start 04/01/18 at 23:45 Throat Lozenges (Cepacol Sore Throat Lozenge) 1 bela PRN Q2HR PRN PO SORE THROAT ; Start 04/01/18 at 23:45 Fentanyl (Duragesic 25mcg/ Hr) 1 patch Q3DAYS TD ; Start 04/04/18 at 09:00; Stop 04/04/18 at 09:00; Status DC Info (Do NOT chart on this placeholder) 1 each 1X ONCE MC Last administered on 04/02/18at 00:00; Start 04/02/18 at 00:00; Stop 04/02/18 at 00:01; Status DC Famotidine (Pepcid) 20 mg BID PO Last administered on 04/07/18 20:47; Start at 09:00 Fentanyl (Duragesic 12mcg/ Hr) 1 patch Q3DAYS TD Last administered on at 07:53; Start 04/02/18 at 14:00 Fentanyl (Duragesic 25mcg/ Hr) 1 patch Q3DAYS TD Last administered on 07:54; Start 04/02/18 at 14:00 Hydroxyzine HCl (Atarax) 25 mg PRN Q2HR PRN PO ANXIETY Last administered on at 11:54; Start 04/03/18 at 18:30 Quetiapine Fumarate (SEROquel) 12.5 mg 0900,1300,1700 PO Last administered on 18:39; Start 04/04/18 at 09:00; Stop 04/06/18 at 18:51; Status DC Ertapenem 1 gm/ Sodium Chloride 50 ml @ 100 mls/hr DAILY IV ; Start 04/11/18 at 09:00; Stop 04/11/18 at 09:00; Status DC Cefepime HCl (Maxipime) 1 gm Q24H IM Last administered on 04/07/18at 15:14; Start 04/05/18 at 13:30 Alprazolam (Xanax) 0.5 mg BID PO Last administered on 04/07/18 20:47; Start at 21:00 Alprazolam (Xanax) 0.25 mg DAILY@1400 PO Last administered on 04/07/18 15:14; Start 04/06/18 at 14:00 Lactobacillus Rhamnosus (Culturelle) 1 cap BID PO Last administered on at 20:47; Start 6/30/18 at 21:00 Quetiapine Fumarate (SEROquel) 25 mg BIDWMEALS PO Last administered on at 18:16; Start 04/07/18 at 08:00 Quetiapine Fumarate (SEROquel) 12.5 mg DAILYWLUN PO Last administered on at 15:14; Start 04/07/18 at 12:00 Active Scripts Active Reported Fentanyl 1 Each Patch.td72 37.5 Mcg TD Q3DAYS Ondansetron Hcl 4 Mg Tablet 4 Mg PO PRN Q8HRS PRN Xanax (Alprazolam) 0.5 Mg Tablet 0.5 Mg PO TID Throat Drops (Pectin) 2.8 Mg Lozenge 1 Unit PO PRN Q3HRS PRN Simvastatin 40 Mg Tablet 40 Mg PO HS Reglan (Metoclopramide Hcl) 5 Mg Tablet 5 Mg PO DAILY Reglan (Metoclopramide Hcl) 5 Mg Tablet 5 Mg PO PRN Q6HRS PRN Refresh Optive Eye Drops (Carboxymethylcellulos/Glycerin) 15 Ml Drops 1 Drop EACHEYE QID Oyster Shell 500 Mg + Vit D Tb (Calcium Carbonate/Vitamin D3) 1 Each Tablet 1 Tab PO BID Oxycodone Hcl 5 Mg Capsule 5 Mg PO PRN Q6HRS PRN Oxybutynin Chloride Er (Oxybutynin Chloride) 10 Mg Tab.er.24 10 Mg PO DAILY Omeprazole 40 Mg Capsule.dr 40 Mg PO HS Maalox Advanced Suspension (Mag Hydrox/Aluminum Hyd/Simeth) 355 Ml Oral.susp 30 Ml PO PRN Q6HRS PRN Melatonin 5 Mg Tablet (Melatonin/Pyridoxine) 1 Each Tablet 5 Mg PO PRN QHS PRN Lisinopril 10 Mg Tablet 10 Mg PO DAILY Lactase 3,000 Unit Tablet 3 Tab PO TIDWMEALS Imodium A-D (Loperamide HCl) 2 Mg Capsule 2 Mg PO PRN Q4HRS PRN Guaifenesin 100 Mg/5 Ml Liquid 15 Ml PO PRN Q6HRS PRN Famotidine 20 Mg Tablet 20 Mg PO DAILY Dicyclomine Hcl 20 Mg Tablet 20 Mg PO QID Cymbalta (Duloxetine Hcl) 60 Mg Capsule.dr 60 Mg PO DAILY Cyclobenzaprine Hcl 5 Mg Tablet 5 Mg PO PRN Q8HRS PRN Vitamin B-12 (Cyanocobalamin (Vitamin B-12)) 1,000 Mcg Tablet 1,000 Mcg PO DAILY Colace (Docusate Sodium) 100 Mg Capsule 100 Mg PO PRN DAILY PRN Peridex (Chlorhexidine Gluconate) 15 Ml Mouthwash 15 Ml PO BID Carvedilol 6.25 Mg Tablet 6.25 Mg PO BIDWMEALS Bisacodyl 10 Mg Supp.rect 10 Mg RC PRN DAILY PRN Biofreeze (Menthol) 118 Ml Gel..ml. 1 Bushra TP PRN Q6HRS PRN Aquaphor Ointment (Mineral Oil/Hydrophil Petrolat) 396 Gm Oint...g. 1 Bushra TP HS Albuterol Sulfate Neb Soln (Albuterol Sulfate) 2.5 Mg/3 Ml Vial.neb 3 Ml NEB PRN Q6HRS PRN I have reviewed the current psychotropics carefully including drug interactions. Risk benefit ratio favors no change other than as noted in my dictated progress note. 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
[2018-04-07] MEDS: METOCLOPRAMIDE 5 MG TABLET PO PRN (22:20)
[2018-04-07] MEDS: hydrOXYzine HCL 25 MG TABLET PO PRN (22:31)
--- NOTE | 2018-04-08 00:58 | PN ---
DATE: 04/06/2018 PSYCHIATRIC PROGRESS NOTE This is a late entry 04/06/2018, covers elements not covered in my initial note. SUBJECTIVE: I met with the patient in the evening. The patient slept 8 hours previous evening, still has vague somatic symptoms, partly due to her anxiety, perhaps partly due to the UTI. Complains of GI symptoms, some vague chest pain symptoms. Previous evening, she was quite intrusive. Ambulation impaired, with a walker. REVIEW OF SYSTEMS: Other than above; no eye, ENT or pulmonary system symptoms on review. MENTAL STATUS EXAM: Oriented to herself and situation. Speech coherent, somewhat pressured at times. Abstraction fair, computation impaired, language function intact. Mood and affect remain somewhat labile. IMPRESSION: Unchanged from initial note. PLAN: Continue current psychotropics and she is currently on Seroquel 12.5 mg 3 times a day. We will increase at 0900 and 1700 the Seroquel to 25 mg. Rest will be left unchanged including Cymbalta, melatonin, Xanax, which is being tapered and hydroxyzine p.r.n. KALIE RODRÍGUEZ MD DR: SHIRA/tessie JOB#: [id number] / [id number]
--- NOTE | 2018-04-08 00:58 | PN ---
DATE: 04/05/2018 This is a late entry, 04/05/2018, covers the elements not covered in my initial note. SUBJECTIVE: I met with the patient in the evening. The patient slept 8 hours the previous evening, somewhat withdrawn to her room, complains of GI symptoms, which are persistent and somatic symptoms fairly obsessive consequent partly to anxiety. She does drink Boost. She does have a UTI, started on cefepime IM daily x 7 days. REVIEW OF SYSTEMS: Complains of the GI symptoms, vague somatic symptoms. No CV, , pulmonary, eye system symptoms on review. MENTAL STATUS EXAM: Oriented to herself and situation. Speech coherent, somewhat pressured. Abstraction fair, computation impaired, language function intact, attention span short. Mood and affect somewhat anxious, labile. She followed me around the unit even after I met with her. LABORATORY DATA: Reviewed. IMPRESSION: Unchanged from initial note. PLAN: No change from a psychiatric standpoint. Treat the urinary tract infection and we will gradually taper the Xanax with reducing it down to from 0.5 mg 3 times a day to 0.5 mg twice a day, 0.25 mg once a day. MAN Ziggy RODRÍGUEZ MD DR: SHIRA/tessie JOB#: [id number] / [id number]
--- NOTE | 2018-04-08 01:01 | PN ---
DATE: 04/07/2018 This note covers the elements not covered in my initial note, 04/07/2018. SUBJECTIVE: I met with the patient in the evening. The patient slept 9 hours the previous evening, has been taking her medications whole. For the first time today when I met with her in her room, she said she felt better, but then she complained of some somatic chest symptoms. She is withdrawn to her room until suppertime, somewhat paranoid with the staff, does not know why she is here. REVIEW OF SYSTEMS: Ambulation impaired with walker. No CV, , pulmonary, eye system symptoms on review other than above. MENTAL STATUS EXAM: Oriented to herself and situation. Speech coherent, somewhat pressured, less so than before. Abstraction fair, computation impaired, language function intact, attention span short. Mood and affect remain somewhat labile. LABORATORY DATA: Reviewed. IMPRESSION: Unchanged from initial note. PLAN: Continue psychotropics from initial note. KALIE RODRÍGUEZ MD DR: SHIRA/tessie JOB#: [id number] / [id number]
[2018-04-08 06:27] VITALS: BP 110/52
[2018-04-08] MEDS: CHLORHEXIDINE 0.12% 15 ML MOUTHWASH. SWSP SCH ×2 (07:46→20:35)
[2018-04-08] MEDS: LISINOPRIL 10 MG TABLET PO SCH (07:47)
[2018-04-08] MEDS: DULoxetine HCL 60 MG CAPSULE.DR PO SCH (07:47)
[2018-04-08] MEDS: LACTOBACILLUS RHAMNOSUS GG 1 CAPSULE. PO SCH ×2 (07:47→20:28)
[2018-04-08] MEDS: DICYCLOMINE HCL 20 MG TABLET PO SCH ×4 (07:47→20:29)
[2018-04-08] MEDS: LACTASE 3,000 UNIT TABLET PO SCH ×3 (07:47→17:13)
[2018-04-08] MEDS: CARVEDILOL 6.25 MG TABLET PO SCH ×2 (07:48→17:13)
[2018-04-08] MEDS: CALCIUM CARB/VIT D3 500/200 TABLET PO SCH ×2 (07:48→17:14)
[2018-04-08] MEDS: QUEtiapine 25 MG TABLET. PO SCH ×3 (07:48→17:14)
[2018-04-08] MEDS: FAMOTIDINE 20 MG TABLET PO SCH ×2 (07:48→20:29)
[2018-04-08] MEDS: METOCLOPRAMIDE 5 MG TABLET PO SCH (07:49)
[2018-04-08] MEDS: ALPRAZolam 0.5 MG TABLET PO SCH ×2 (07:50→20:31)
[2018-04-08] MEDS: fentaNYL 12MCG/HR 1 PATCH PATCH TD SCH (07:52)
[2018-04-08] MEDS: fentaNYL 25MCG/HR 1 PATCH PATCH TD SCH (09:00)
[2018-04-08] MEDS: OXYBUTYNIN CHLORIDE 5 MG TABLET PO SCH ×2 (09:00→20:29)
[2018-04-08] MEDS: POLYVINYL ALCOHOL 1.4% OPHTH SOLUTION 15ML BOTTLE. OU SCH ×4 (09:00→20:31)
[2018-04-08] MEDS: CEFEPIME HCL 1 GM VIAL IM SCH (12:35)
[2018-04-08] MEDS: ALPRAZolam 0.25 MG TABLET PO SCH (12:56)
[2018-04-08 16:06] VITALS: BP 120/58
[2018-04-08] MEDS: SIMVASTATIN 40 MG TABLET. PO SCH (20:29)
[2018-04-08] MEDS: MINERAL OIL/PETROLATUM TOPICAL CREAM 113GM JAR. TP SCH (20:31)
--- NOTE | 2018-04-08 21:05 | PDOC ---
Exam Note: Johnny Note: Please also refer to the separate dictated note~for this date of service dictated separately.~Patient seen individually. Discussed the patient with Nursing staff reviewed the chart.~Reviewed interim history and current functioning. Reviewed vital signs,~Labs/ Radiology~and current medications noted below. Continue current treatment with the changes noted in the dictated addendum note Assessment: Vital Signs: Vital Signs Date Time Temp Pulse Resp B/P (MAP) Pulse Ox O2 Delivery O2 Flow Rate FiO2 04/08/18 17:13 74 120/58 04/08/18 16:06 97.9 18 98 04/08/18 12:54 Room Air I&O Intake and Output 04/08/18 06:59 Intake Total 360 ml Balance 360 ml Intake Oral 360 ml # Voids 2 Current Medications: Meds: Current Medications Acetaminophen (Tylenol) 650 mg PRN Q6HRS PRN PO PAIN / TEMP Last administered on 04/02/18at 11:45; Start 04/01/18 at 23:00 Multi-Ingredient Ointment (Analgesic [place]) 1 bushra PRN QID PRN TP MUSCLE PAIN; Start 04/01/18 at 23:00 Al Hydroxide/Mg Hydroxide (Mylanta Plus Xs) 15 ml PRN AFTMEALHC PRN PO DYSPEPSIA Last administered on 04/02/18at 12:27; Start 04/01/18 at 23:00 Magnesium Hydroxide (Milk Of Magnesia) 2,400 mg PRN QHS PRN PO CONSTIPATION; Start 04/01/18 at 23:00 Alprazolam (Xanax) 0.5 mg TID PO Last administered on 04/05/18at 13:43; Start at 09:00; Stop 04/05/18 at 18:13; Status DC Duloxetine HCl (Cymbalta) 60 mg DAILY PO Last administered on 04/08/18at 07:47; Start 04/02/18 at 09:00 Melatonin 6 mg PRN QHS PRN PO INSOMNIA Last administered on 04/04/18at 20:48; Start 04/01/18 at 23:45 Albuterol Sulfate (Ventolin) 2.5 mg PRN Q6HRS PRN NEB SHORTNESS OF BREATH; Start 04/01/18 at 23:30 Chlorhexidine Gluconate (Peridex) 15 ml BID SWSP Last administered on 04/08/18at 20:35; Start 04/02/18 at 09:00 Cyanocobalamin (Vitamin B-12) 1,000 mcg DAILY PO Last administered on at 08:51; Start 04/02/18 at 09:00; Status Future Hold Guaifenesin (Robitussin) 300 mg PRN Q6HRS PRN PO COUGH; Start 04/01/18 at 23:30 Lisinopril (Prinivil) 10 mg DAILY PO Last administered on 04/08/18at 07:47; Start 04/02/18 at 09:00 Simvastatin (Zocor) 40 mg HS PO Last administered on 04/08/18 20:29; Start at 21:00 Bisacodyl (Dulcolax Supp) 10 mg PRN DAILY PRN [place] CONSTIPATION; Start 04/01/18 at 23:45 Calcium/Vitamin D (Oscal D 500mg/ 200uts) 1 tab BIDWMEALS PO Last administered on 04/08/18 17:14; Start 04/02/18 at 08:00 Artificial Tears (Artificial Tears) 1 drop QID OU Last administered on 17:15; Start 04/02/18 at 09:00 Carvedilol (Coreg) 6.25 mg BIDWMEALS PO Last administered on 04/08/18 17:13; Start 04/02/18 at 08:00 Cyclobenzaprine HCl (Flexeril) 5 mg PRN Q8HRS PRN PO MUSCLE SPASMS Last administered on 04/04/18at 11:54; Start 04/01/18 at 23:45 Dicyclomine HCl (Bentyl) 20 mg QID PO Last administered on 04/08/18 20:29; Start 04/02/18 at 09:00 Docusate Sodium (Colace) 100 mg PRN DAILY PRN PO CONSTIPATION; Start 04/01/18 at 23:45 Famotidine (Pepcid) 20 mg DAILY PO ; Start 04/02/18 at 09:00; Stop 04/02/18 at 09:00; Status DC Fentanyl (Duragesic 12mcg/ Hr) 1 patch Q3DAYS TD ; Start 04/04/18 at 09:00; Stop 04/04/18 at 09:00; Status DC Lactase (Lactaid) 9,000 unit TIDWMEALS PO Last administered on 04/08/18 17:13; Start 04/02/18 at 08:00 Loperamide HCl (Imodium) 2 mg PRN Q4HRS PRN PO DIARRHEA; Start 04/01/18 at 23: 45 Non-Formulary Medication (Mag Hydrox/ Aluminum Hyd/ Simeth (Maalox Advanced Suspension)) 30 ml PRN Q6HRS PRN PO DYSPEPSIA; Start 04/01/18 at 23:30; Status UNV Non-Formulary Medication (Menthol (Biofreeze)) 1 bushra PRN Q6HRS PRN TP PAIN; Start 04/01/18 at 23:30; Status UNV Metoclopramide HCl (Reglan) 5 mg DAILY PO Last administered on 04/08/18 07:49; Start 04/02/18 at 09:00 Metoclopramide HCl (Reglan) 5 mg PRN Q6HRS PRN PO NAUSEA/VOMITING Last administered on 04/04/18at 15:13; Start 04/01/18 at 23:45 Multi-Ingred Cream/Lotion/Oil/ Oint (Hydrocerin) 1 bushra QHS TP Last administered on 04/06/18 19:25; Start 04/02/18 at 21:00 Pantoprazole Sodium (Protonix) 40 mg QHS PO ; Start 04/02/18 at 21:00; Stop at 21:00; Status DC Ondansetron HCl (Zofran Odt) 4 mg PRN Q8HRS PRN PO NAUSEA/VOMITING Last administered on 04/06/18 14:23; Start 04/01/18 at 23:45 Oxybutynin Chloride (Ditropan) 5 mg BID PO Last administered on 04/08/18at 20:29 ; Start 04/02/18 at 09:00 Oxycodone HCl (Roxicodone) 5 mg PRN Q6HRS PRN PO PAIN Last administered on 18:16; Start 04/01/18 at 23:45 Throat Lozenges (Cepacol Sore Throat Lozenge) 1 bela PRN Q2HR PRN PO SORE THROAT ; Start 04/01/18 at 23:45 Fentanyl (Duragesic 25mcg/ Hr) 1 patch Q3DAYS TD ; Start 04/04/18 at 09:00; Stop 04/04/18 at 09:00; Status DC Info (Do NOT chart on this placeholder) 1 each 1X ONCE MC Last administered on 04/02/18at 00:00; Start 04/02/18 at 00:00; Stop 04/02/18 at 00:01; Status DC Famotidine (Pepcid) 20 mg BID PO Last administered on 04/08/18 20:29; Start at 09:00 Fentanyl (Duragesic 12mcg/ Hr) 1 patch Q3DAYS TD Last administered on 04/08/18 07:52; Start 04/02/18 at 14:00 Fentanyl (Duragesic 25mcg/ Hr) 1 patch Q3DAYS TD Last administered on 04/08/18 09:00; Start 04/02/18 at 14:00 Hydroxyzine HCl (Atarax) 25 mg PRN Q2HR PRN PO ANXIETY Last administered on 04/07 22:31; Start 04/03/18 at 18:30 Quetiapine Fumarate (SEROquel) 12.5 mg 0900,1300,1700 PO Last administered on 18:39; Start 04/04/18 at 09:00; Stop 04/06/18 at 18:51; Status DC Ertapenem 1 gm/ Sodium Chloride 50 ml @ 100 mls/hr DAILY IV ; Start 04/11/18 at 09:00; Stop 04/11/18 at 09:00; Status DC Cefepime HCl (Maxipime) 1 gm Q24H IM Last administered on 04/08/18 12:35; Start 04/05/18 at 13:30 Alprazolam (Xanax) 0.5 mg BID PO Last administered on 04/08/18 20:31; Start at 21:00 Alprazolam (Xanax) 0.25 mg DAILY@1400 PO Last administered on 04/08/18 12:56; Start 04/06/18 at 14:00 Lactobacillus Rhamnosus (Culturelle) 1 cap BID PO Last administered on 20:28; Start 04/06/18 at 21:00 Quetiapine Fumarate (SEROquel) 25 mg BIDWMEALS PO Last administered on at 17:14; Start 04/07/18 at 08:00 Quetiapine Fumarate (SEROquel) 12.5 mg DAILYWLUN PO Last administered on at 12:30; Start 04/07/18 at 12:00; Stop 04/08/18 at 18:27; Status DC Quetiapine Fumarate (SEROquel) 25 mg DAILYWLUN PO ; Start 04/09/18 at 12:00 Active Scripts Active Reported Fentanyl 1 Each Patch.td72 37.5 Mcg TD Q3DAYS Ondansetron Hcl 4 Mg Tablet 4 Mg PO PRN Q8HRS PRN Xanax (Alprazolam) 0.5 Mg Tablet 0.5 Mg PO TID Throat Drops (Pectin) 2.8 Mg Lozenge 1 Unit PO PRN Q3HRS PRN Simvastatin 40 Mg Tablet 40 Mg PO HS Reglan (Metoclopramide Hcl) 5 Mg Tablet 5 Mg PO DAILY Reglan (Metoclopramide Hcl) 5 Mg Tablet 5 Mg PO PRN Q6HRS PRN Refresh Optive Eye Drops (Carboxymethylcellulos/Glycerin) 15 Ml Drops 1 Drop EACHEYE QID Oyster Shell 500 Mg + Vit D Tb (Calcium Carbonate/Vitamin D3) 1 Each Tablet 1 Tab PO BID Oxycodone Hcl 5 Mg Capsule 5 Mg PO PRN Q6HRS PRN Oxybutynin Chloride Er (Oxybutynin Chloride) 10 Mg Tab.er.24 10 Mg PO DAILY Omeprazole 40 Mg Capsule.dr 40 Mg PO HS Maalox Advanced Suspension (Mag Hydrox/Aluminum Hyd/Simeth) 355 Ml Oral.susp 30 Ml PO PRN Q6HRS PRN Melatonin 5 Mg Tablet (Melatonin/Pyridoxine) 1 Each Tablet 5 Mg PO PRN QHS PRN Lisinopril 10 Mg Tablet 10 Mg PO DAILY Lactase 3,000 Unit Tablet 3 Tab PO TIDWMEALS Imodium A-D (Loperamide HCl) 2 Mg Capsule 2 Mg PO PRN Q4HRS PRN Guaifenesin 100 Mg/5 Ml Liquid 15 Ml PO PRN Q6HRS PRN Famotidine 20 Mg Tablet 20 Mg PO DAILY Dicyclomine Hcl 20 Mg Tablet 20 Mg PO QID Cymbalta (Duloxetine Hcl) 60 Mg Capsule.dr 60 Mg PO DAILY Cyclobenzaprine Hcl 5 Mg Tablet 5 Mg PO PRN Q8HRS PRN Vitamin B-12 (Cyanocobalamin (Vitamin B-12)) 1,000 Mcg Tablet 1,000 Mcg PO DAILY Colace (Docusate Sodium) 100 Mg Capsule 100 Mg PO PRN DAILY PRN Peridex (Chlorhexidine Gluconate) 15 Ml Mouthwash 15 Ml PO BID Carvedilol 6.25 Mg Tablet 6.25 Mg PO BIDWMEALS Bisacodyl 10 Mg Supp.rect 10 Mg RC PRN DAILY PRN Biofreeze (Menthol) 118 Ml Gel..ml. 1 Bushra TP PRN Q6HRS PRN Aquaphor Ointment (Mineral Oil/Hydrophil Petrolat) 396 Gm Oint...g. 1 Bushra TP HS Albuterol Sulfate Neb Soln (Albuterol Sulfate) 2.5 Mg/3 Ml Vial.neb 3 Ml NEB PRN Q6HRS PRN I have reviewed the current psychotropics carefully including drug interactions. Risk benefit ratio favors no change other than as noted in my dictated progress note. Diagnosis: Problems: (1) Mental status alteration (2) Anxiety disorder (3) Bipolar affective disorder, mixed (4) Dementia in Alzheimer's disease with depression (5) Dementia in Alzheimer's disease with delusions (6) Dementia, vascular, with delusions (7) Dementia, vascular, with depression (8) Impulse control disorder KALIE RODRÍGUEZ MD Apr 08, 2018 21:05
[2018-04-09 06:22] VITALS: BP 142/58
[2018-04-09] MEDS: METOCLOPRAMIDE 5 MG TABLET PO SCH (07:49)
[2018-04-09] MEDS: LACTOBACILLUS RHAMNOSUS GG 1 CAPSULE. PO SCH ×2 (07:49→20:57)
[2018-04-09] MEDS: OXYBUTYNIN CHLORIDE 5 MG TABLET PO SCH ×2 (07:49→20:56)
[2018-04-09] MEDS: CHLORHEXIDINE 0.12% 15 ML MOUTHWASH. SWSP SCH ×2 (07:49→20:58)
[2018-04-09] MEDS: POLYVINYL ALCOHOL 1.4% OPHTH SOLUTION 15ML BOTTLE. OU SCH ×4 (07:49→20:58)
[2018-04-09] MEDS: ALPRAZolam 0.5 MG TABLET PO SCH ×2 (07:49→20:58)
[2018-04-09] MEDS: DULoxetine HCL 60 MG CAPSULE.DR PO SCH (07:50)
[2018-04-09] MEDS: CARVEDILOL 6.25 MG TABLET PO SCH ×2 (07:50→17:10)
[2018-04-09] MEDS: LISINOPRIL 10 MG TABLET PO SCH (07:50)
[2018-04-09] MEDS: CALCIUM CARB/VIT D3 500/200 TABLET PO SCH ×2 (07:50→17:10)
[2018-04-09] MEDS: FAMOTIDINE 20 MG TABLET PO SCH ×2 (07:50→20:57)
[2018-04-09] MEDS: QUEtiapine 25 MG TABLET. PO SCH ×3 (07:51→17:10)
[2018-04-09] MEDS: DICYCLOMINE HCL 20 MG TABLET PO SCH ×4 (07:51→20:56)
[2018-04-09] MEDS: LACTASE 3,000 UNIT TABLET PO SCH ×3 (07:51→17:10)
[2018-04-09] MEDS: CEFEPIME HCL 1 GM VIAL IM SCH (12:20)
[2018-04-09] MEDS: ALPRAZolam 0.25 MG TABLET PO SCH (12:21)
[2018-04-09 16:29] VITALS: BP 101/69
--- NOTE | 2018-04-09 20:45 | PDOC ---
Exam Note: Johnny Note: Please also refer to the separate dictated note~for this date of service dictated separately.~Patient seen individually. Discussed the patient with Nursing staff reviewed the chart.~Reviewed interim history and current functioning. Reviewed vital signs,~Labs/ Radiology~and current medications noted below. Continue current treatment with the changes noted in the dictated addendum note Assessment: Vital Signs: Vital Signs Date Time Temp Pulse Resp B/P (MAP) Pulse Ox O2 Delivery O2 Flow Rate FiO2 04/09/18 17:10 98 101/69 04/09/18 16:29 97.6 18 97 04/08/18 12:54 Room Air I&O Intake and Output 04/09/18 06:59 Intake Total 1080 ml Balance 1080 ml Intake Oral 1080 ml # Voids 2 Current Medications: Meds: Current Medications Acetaminophen (Tylenol) 650 mg PRN Q6HRS PRN PO PAIN / TEMP Last administered on 04/02/18at 11:45; Start 04/01/18 at 23:00 Multi-Ingredient Ointment (Analgesic [place]) 1 bushra PRN QID PRN TP MUSCLE PAIN; Start 04/01/18 at 23:00 Al Hydroxide/Mg Hydroxide (Mylanta Plus Xs) 15 ml PRN AFTMEALHC PRN PO DYSPEPSIA Last administered on 04/02/18at 12:27; Start 04/01/18 at 23:00 Magnesium Hydroxide (Milk Of Magnesia) 2,400 mg PRN QHS PRN PO CONSTIPATION; Start 04/01/18 at 23:00 Alprazolam (Xanax) 0.5 mg TID PO Last administered on 04/05/18at 13:43; Start at 09:00; Stop 04/05/18 at 18:13; Status DC Duloxetine HCl (Cymbalta) 60 mg DAILY PO Last administered on 04/09/18at 07:50; Start 04/02/18 at 09:00 Melatonin 6 mg PRN QHS PRN PO INSOMNIA Last administered on 04/04/18at 20:48; Start 04/01/18 at 23:45 Albuterol Sulfate (Ventolin) 2.5 mg PRN Q6HRS PRN NEB SHORTNESS OF BREATH; Start 04/01/18 at 23:30 Chlorhexidine Gluconate (Peridex) 15 ml BID SWSP Last administered on 04/09/18 07:49; Start 04/02/18 at 09:00 Cyanocobalamin (Vitamin B-12) 1,000 mcg DAILY PO Last administered on at 08:51; Start 04/02/18 at 09:00; Status Future Hold Guaifenesin (Robitussin) 300 mg PRN Q6HRS PRN PO COUGH; Start 04/01/18 at 23:30 Lisinopril (Prinivil) 10 mg DAILY PO Last administered on 04/09/18at 07:50; Start 04/02/18 at 09:00 Simvastatin (Zocor) 40 mg HS PO Last administered on 04/08/18 20:29; Start at 21:00 Bisacodyl (Dulcolax Supp) 10 mg PRN DAILY PRN [place] CONSTIPATION; Start 04/01/18 at 23:45 Calcium/Vitamin D (Oscal D 500mg/ 200uts) 1 tab BIDWMEALS PO Last administered on 04/09/18 17:10; Start 04/02/18 at 08:00 Artificial Tears (Artificial Tears) 1 drop QID OU Last administered on 17:09; Start 04/02/18 at 09:00 Carvedilol (Coreg) 6.25 mg BIDWMEALS PO Last administered on 04/09/18 17:10; Start 04/02/18 at 08:00 Cyclobenzaprine HCl (Flexeril) 5 mg PRN Q8HRS PRN PO MUSCLE SPASMS Last administered on 04/04/18at 11:54; Start 04/01/18 at 23:45 Dicyclomine HCl (Bentyl) 20 mg QID PO Last administered on 04/09/18 17:09; Start 04/02/18 at 09:00 Docusate Sodium (Colace) 100 mg PRN DAILY PRN PO CONSTIPATION; Start 04/01/18 at 23:45 Famotidine (Pepcid) 20 mg DAILY PO ; Start 04/02/18 at 09:00; Stop 04/02/18 at 09:00; Status DC Fentanyl (Duragesic 12mcg/ Hr) 1 patch Q3DAYS TD ; Start 04/04/18 at 09:00; Stop 04/04/18 at 09:00; Status DC Lactase (Lactaid) 9,000 unit TIDWMEALS PO Last administered on 04/09/18 17:10; Start 04/02/18 at 08:00 Loperamide HCl (Imodium) 2 mg PRN Q4HRS PRN PO DIARRHEA; Start 04/01/18 at 23: 45 Non-Formulary Medication (Mag Hydrox/ Aluminum Hyd/ Simeth (Maalox Advanced Suspension)) 30 ml PRN Q6HRS PRN PO DYSPEPSIA; Start 04/01/18 at 23:30; Status UNV Non-Formulary Medication (Menthol (Biofreeze)) 1 bushra PRN Q6HRS PRN TP PAIN; Start 04/01/18 at 23:30; Status UNV Metoclopramide HCl (Reglan) 5 mg DAILY PO Last administered on 04/09/18 07:49; Start 04/02/18 at 09:00 Metoclopramide HCl (Reglan) 5 mg PRN Q6HRS PRN PO NAUSEA/VOMITING Last administered on 04/04/18at 15:13; Start 04/01/18 at 23:45 Multi-Ingred Cream/Lotion/Oil/ Oint (Hydrocerin) 1 bushra QHS TP Last administered on 04/06/18 19:25; Start 04/02/18 at 21:00 Pantoprazole Sodium (Protonix) 40 mg QHS PO ; Start 04/02/18 at 21:00; Stop at 21:00; Status DC Ondansetron HCl (Zofran Odt) 4 mg PRN Q8HRS PRN PO NAUSEA/VOMITING Last administered on 04/06/18 14:23; Start 04/01/18 at 23:45 Oxybutynin Chloride (Ditropan) 5 mg BID PO Last administered on 04/09/18 07:49 ; Start 04/02/18 at 09:00 Oxycodone HCl (Roxicodone) 5 mg PRN Q6HRS PRN PO PAIN Last administered on 18:16; Start 04/01/18 at 23:45 Throat Lozenges (Cepacol Sore Throat Lozenge) 1 bela PRN Q2HR PRN PO SORE THROAT ; Start 04/01/18 at 23:45 Fentanyl (Duragesic 25mcg/ Hr) 1 patch Q3DAYS TD ; Start 04/04/18 at 09:00; Stop 04/04/18 at 09:00; Status DC Info (Do NOT chart on this placeholder) 1 each 1X ONCE MC Last administered on 04/02/18at 00:00; Start 04/02/18 at 00:00; Stop 04/02/18 at 00:01; Status DC Famotidine (Pepcid) 20 mg BID PO Last administered on 04/09/18 07:50; Start at 09:00 Fentanyl (Duragesic 12mcg/ Hr) 1 patch Q3DAYS TD Last administered on 04/08/18 07:52; Start 04/02/18 at 14:00 Fentanyl (Duragesic 25mcg/ Hr) 1 patch Q3DAYS TD Last administered on 04/08/18at 09:00; Start 04/02/18 at 14:00 Hydroxyzine HCl (Atarax) 25 mg PRN Q2HR PRN PO ANXIETY Last administered on 04/07at 22:31; Start 04/03/18 at 18:30 Quetiapine Fumarate (SEROquel) 12.5 mg 0900,1300,1700 PO Last administered on 18:39; Start 04/04/18 at 09:00; Stop 04/06/18 at 18:51; Status DC Ertapenem 1 gm/ Sodium Chloride 50 ml @ 100 mls/hr DAILY IV ; Start 04/11/18 at 09:00; Stop 04/11/18 at 09:00; Status DC Cefepime HCl (Maxipime) 1 gm Q24H IM Last administered on 04/09/18 12:20; Start 04/05/18 at 13:30 Alprazolam (Xanax) 0.5 mg BID PO Last administered on 04/09/18 07:49; Start at 21:00 Alprazolam (Xanax) 0.25 mg DAILY@1400 PO Last administered on 04/09/18 12:21; Start 04/06/18 at 14:00 Lactobacillus Rhamnosus (Culturelle) 1 cap BID PO Last administered on at 07:49; Start 04/06/18 at 21:00 Quetiapine Fumarate (SEROquel) 25 mg BIDWMEALS PO Last administered on at 17:10; Start 04/07/18 at 08:00 Quetiapine Fumarate (SEROquel) 12.5 mg DAILYWLUN PO Last administered on at 12:30; Start 04/07/18 at 12:00; Stop 04/08/18 at 18:27; Status DC Quetiapine Fumarate (SEROquel) 25 mg DAILYWLUN PO Last administered on at 12:17; Start 04/09/18 at 12:00 Active Scripts Active Reported Fentanyl 1 Each Patch.td72 37.5 Mcg TD Q3DAYS Ondansetron Hcl 4 Mg Tablet 4 Mg PO PRN Q8HRS PRN Xanax (Alprazolam) 0.5 Mg Tablet 0.5 Mg PO TID Throat Drops (Pectin) 2.8 Mg Lozenge 1 Unit PO PRN Q3HRS PRN Simvastatin 40 Mg Tablet 40 Mg PO HS Reglan (Metoclopramide Hcl) 5 Mg Tablet 5 Mg PO DAILY Reglan (Metoclopramide Hcl) 5 Mg Tablet 5 Mg PO PRN Q6HRS PRN Refresh Optive Eye Drops (Carboxymethylcellulos/Glycerin) 15 Ml Drops 1 Drop EACHEYE QID Oyster Shell 500 Mg + Vit D Tb (Calcium Carbonate/Vitamin D3) 1 Each Tablet 1 Tab PO BID Oxycodone Hcl 5 Mg Capsule 5 Mg PO PRN Q6HRS PRN Oxybutynin Chloride Er (Oxybutynin Chloride) 10 Mg Tab.er.24 10 Mg PO DAILY Omeprazole 40 Mg Capsule.dr 40 Mg PO HS Maalox Advanced Suspension (Mag Hydrox/Aluminum Hyd/Simeth) 355 Ml Oral.susp 30 Ml PO PRN Q6HRS PRN Melatonin 5 Mg Tablet (Melatonin/Pyridoxine) 1 Each Tablet 5 Mg PO PRN QHS PRN Lisinopril 10 Mg Tablet 10 Mg PO DAILY Lactase 3,000 Unit Tablet 3 Tab PO TIDWMEALS Imodium A-D (Loperamide HCl) 2 Mg Capsule 2 Mg PO PRN Q4HRS PRN Guaifenesin 100 Mg/5 Ml Liquid 15 Ml PO PRN Q6HRS PRN Famotidine 20 Mg Tablet 20 Mg PO DAILY Dicyclomine Hcl 20 Mg Tablet 20 Mg PO QID Cymbalta (Duloxetine Hcl) 60 Mg Capsule.dr 60 Mg PO DAILY Cyclobenzaprine Hcl 5 Mg Tablet 5 Mg PO PRN Q8HRS PRN Vitamin B-12 (Cyanocobalamin (Vitamin B-12)) 1,000 Mcg Tablet 1,000 Mcg PO DAILY Colace (Docusate Sodium) 100 Mg Capsule 100 Mg PO PRN DAILY PRN Peridex (Chlorhexidine Gluconate) 15 Ml Mouthwash 15 Ml PO BID Carvedilol 6.25 Mg Tablet 6.25 Mg PO BIDWMEALS Bisacodyl 10 Mg Supp.rect 10 Mg RC PRN DAILY PRN Biofreeze (Menthol) 118 Ml Gel..ml. 1 Bushra TP PRN Q6HRS PRN Aquaphor Ointment (Mineral Oil/Hydrophil Petrolat) 396 Gm Oint...g. 1 Bushra TP HS Albuterol Sulfate Neb Soln (Albuterol Sulfate) 2.5 Mg/3 Ml Vial.neb 3 Ml NEB PRN Q6HRS PRN I have reviewed the current psychotropics carefully including drug interactions. Risk benefit ratio favors no change other than as noted in my dictated progress note. Diagnosis: Problems: (1) Mental status alteration (2) Anxiety disorder (3) Bipolar affective disorder, mixed (4) Dementia in Alzheimer's disease with depression (5) Dementia in Alzheimer's disease with delusions (6) Dementia, vascular, with delusions (7) Dementia, vascular, with depression (8) Impulse control disorder KALIE RODRÍGUEZ MD Apr 09, 2018 20:45
[2018-04-09] MEDS: SIMVASTATIN 40 MG TABLET. PO SCH (20:57)
[2018-04-09] MEDS: MINERAL OIL/PETROLATUM TOPICAL CREAM 113GM JAR. TP SCH (20:58)
--- NOTE | 2018-04-09 21:50 | PN ---
DATE: 04/08/2018 PSYCHIATRIC PROGRESS NOTE This is a late entry, 04/08/2018, covers elements not covered in my initial note of 04/08/2018. SUBJECTIVE: I met with the patient in the evening. The patient slept 6 hours previous evening. Information from assisted indicates the patient was recently taken off her oxycodone and fentanyl patch, and since then, she has had a marked deterioration in her overall functioning. She has spent much day in bed. Appetite is poor, wanting her pain medications repeatedly. REVIEW OF SYSTEMS: Ambulation impaired, in wheelchair. Has vague somatic symptoms. No CV, , pulmonary, eye system symptoms on review. MENTAL STATUS EXAM: Oriented to herself and situation. Speech coherent, has some latency. Abstraction fair, computation impaired, language function intact. Mood and affect remain somewhat anxious, labile. LABORATORY DATA: Reviewed. IMPRESSION: Unchanged from initial note. PLAN: Seroquel is 12.5 mg at noon, we will increase it to 25 mg, maintain 25 mg at bedtime. Maintain Cymbalta, melatonin, along with Xanax. Rest unchanged for now. MAN Ziggy RODRÍGUEZ MD DR: SHIRA/tessie JOB#: [id number] / [id number]
[2018-04-10 06:24] VITALS: BP 105/47
[2018-04-10] MEDS: POLYVINYL ALCOHOL 1.4% OPHTH SOLUTION 15ML BOTTLE. OU SCH ×4 (09:00→20:46)
[2018-04-10] MEDS: LISINOPRIL 10 MG TABLET PO SCH (09:00)
[2018-04-10] MEDS: FAMOTIDINE 20 MG TABLET PO SCH ×2 (09:10→20:43)
[2018-04-10] MEDS: CHLORHEXIDINE 0.12% 15 ML MOUTHWASH. SWSP SCH ×2 (09:10→20:43)
[2018-04-10] MEDS: CALCIUM CARB/VIT D3 500/200 TABLET PO SCH ×2 (09:10→18:08)
[2018-04-10] MEDS: METOCLOPRAMIDE 5 MG TABLET PO SCH (09:10)
[2018-04-10] MEDS: LACTOBACILLUS RHAMNOSUS GG 1 CAPSULE. PO SCH ×2 (09:10→20:43)
[2018-04-10] MEDS: QUEtiapine 25 MG TABLET. PO SCH ×3 (09:10→18:08)
[2018-04-10] MEDS: OXYBUTYNIN CHLORIDE 5 MG TABLET PO SCH ×2 (09:10→20:43)
[2018-04-10] MEDS: DICYCLOMINE HCL 20 MG TABLET PO SCH ×4 (09:10→20:43)
[2018-04-10] MEDS: DULoxetine HCL 60 MG CAPSULE.DR PO SCH (09:10)
[2018-04-10] MEDS: LACTASE 3,000 UNIT TABLET PO SCH ×3 (09:10→18:08)
[2018-04-10] MEDS: ALPRAZolam 0.5 MG TABLET PO SCH ×2 (09:11→20:45)
[2018-04-10] MEDS: CARVEDILOL 6.25 MG TABLET PO SCH ×2 (09:14→17:00)
[2018-04-10] MEDS: ALPRAZolam 0.25 MG TABLET PO SCH (13:06)
[2018-04-10] MEDS: CEFEPIME HCL 1 GM VIAL IM SCH (13:11)
[2018-04-10 16:24] VITALS: BP 101/60
[2018-04-10] MEDS: SIMVASTATIN 40 MG TABLET. PO SCH (20:43)
--- NOTE | 2018-04-10 20:44 | PDOC ---
Exam Note: Johnny Note: Please also refer to the separate dictated note~for this date of service dictated separately.~Patient seen individually. Discussed the patient with Nursing staff reviewed the chart.~Reviewed interim history and current functioning. Reviewed vital signs,~Labs/ Radiology~and current medications noted below. Continue current treatment with the changes noted in the dictated addendum note Assessment: Vital Signs: Vital Signs Date Time Temp Pulse Resp B/P (MAP) Pulse Ox O2 Delivery O2 Flow Rate FiO2 04/10/18 17:00 82 101/60 04/10/18 16:24 97.4 16 92 04/10/18 06:24 2.0 04/08/18 12:54 Room Air I&O Intake and Output 04/10/18 07:00 Intake Total 840 ml Balance 840 ml Intake Oral 840 ml # Voids 1 Current Medications: Meds: Current Medications Acetaminophen (Tylenol) 650 mg PRN Q6HRS PRN PO PAIN / TEMP Last administered on 04/02/18 11:45; Start 04/01/18 at 23:00 Multi-Ingredient Ointment (Analgesic [place]) 1 bushra PRN QID PRN TP MUSCLE PAIN; Start 04/01/18 at 23:00 Al Hydroxide/Mg Hydroxide (Mylanta Plus Xs) 15 ml PRN AFTMEALHC PRN PO DYSPEPSIA Last administered on 04/02/18 12:27; Start 04/01/18 at 23:00 Magnesium Hydroxide (Milk Of Magnesia) 2,400 mg PRN QHS PRN PO CONSTIPATION Last administered on 04/10/18 09:26; Start 04/01/18 at 23:00 Alprazolam (Xanax) 0.5 mg TID PO Last administered on 04/05/18 13:43; Start at 09:00; Stop 04/05/18 at 18:13; Status DC Duloxetine HCl (Cymbalta) 60 mg DAILY PO Last administered on 04/10/18 09:10; Start 04/02/18 at 09:00 Melatonin 6 mg PRN QHS PRN PO INSOMNIA Last administered on 04/04/18at 20:48; Start 04/01/18 at 23:45 Albuterol Sulfate (Ventolin) 2.5 mg PRN Q6HRS PRN NEB SHORTNESS OF BREATH; Start 04/01/18 at 23:30 Chlorhexidine Gluconate (Peridex) 15 ml BID SWSP Last administered on 04/10/18 09:10; Start 04/02/18 at 09:00 Cyanocobalamin (Vitamin B-12) 1,000 mcg DAILY PO Last administered on 08:51; Start 04/02/18 at 09:00; Status Future Hold Guaifenesin (Robitussin) 300 mg PRN Q6HRS PRN PO COUGH; Start 04/01/18 at 23:30 Lisinopril (Prinivil) 10 mg DAILY PO Last administered on 04/09/18 07:50; Start 04/02/18 at 09:00 Simvastatin (Zocor) 40 mg HS PO Last administered on 04/09/18 20:57; Start at 21:00 Bisacodyl (Dulcolax Supp) 10 mg PRN DAILY PRN [place] CONSTIPATION; Start 04/01/18 at 23:45 Calcium/Vitamin D (Oscal D 500mg/ 200uts) 1 tab BIDWMEALS PO Last administered on 04/10/18 18:08; Start 04/02/18 at 08:00 Artificial Tears (Artificial Tears) 1 drop QID OU Last administered on 18:08; Start 04/02/18 at 09:00 Carvedilol (Coreg) 6.25 mg BIDWMEALS PO Last administered on 04/10/18 09:14; Start 04/02/18 at 08:00 Cyclobenzaprine HCl (Flexeril) 5 mg PRN Q8HRS PRN PO MUSCLE SPASMS Last administered on 04/04/18at 11:54; Start 04/01/18 at 23:45 Dicyclomine HCl (Bentyl) 20 mg QID PO Last administered on 04/10/18 18:08; Start 04/02/18 at 09:00 Docusate Sodium (Colace) 100 mg PRN DAILY PRN PO CONSTIPATION; Start 04/01/18 at 23:45 Famotidine (Pepcid) 20 mg DAILY PO ; Start 04/02/18 at 09:00; Stop 04/02/18 at 09:00; Status DC Fentanyl (Duragesic 12mcg/ Hr) 1 patch Q3DAYS TD ; Start 04/04/18 at 09:00; Stop 04/04/18 at 09:00; Status DC Lactase (Lactaid) 9,000 unit TIDWMEALS PO Last administered on 04/10/18 18:08; Start 04/02/18 at 08:00 Loperamide HCl (Imodium) 2 mg PRN Q4HRS PRN PO DIARRHEA; Start 04/01/18 at 23: 45 Non-Formulary Medication (Mag Hydrox/ Aluminum Hyd/ Simeth (Maalox Advanced Suspension)) 30 ml PRN Q6HRS PRN PO DYSPEPSIA; Start 04/01/18 at 23:30; Status UNV Non-Formulary Medication (Menthol (Biofreeze)) 1 bushra PRN Q6HRS PRN TP PAIN; Start 04/01/18 at 23:30; Status UNV Metoclopramide HCl (Reglan) 5 mg DAILY PO Last administered on 04/10/18 09:10; Start 04/02/18 at 09:00 Metoclopramide HCl (Reglan) 5 mg PRN Q6HRS PRN PO NAUSEA/VOMITING Last administered on 04/04/18 15:13; Start 04/01/18 at 23:45 Multi-Ingred Cream/Lotion/Oil/ Oint (Hydrocerin) 1 bushra QHS TP Last administered on 04/09/18at 20:58; Start 04/02/18 at 21:00 Pantoprazole Sodium (Protonix) 40 mg QHS PO ; Start 04/02/18 at 21:00; Stop at 21:00; Status DC Ondansetron HCl (Zofran Odt) 4 mg PRN Q8HRS PRN PO NAUSEA/VOMITING Last administered on 04/06/18 14:23; Start 04/01/18 at 23:45 Oxybutynin Chloride (Ditropan) 5 mg BID PO Last administered on 04/10/18 09:10 ; Start 04/02/18 at 09:00 Oxycodone HCl (Roxicodone) 5 mg PRN Q6HRS PRN PO PAIN Last administered on 18:16; Start 04/01/18 at 23:45 Throat Lozenges (Cepacol Sore Throat Lozenge) 1 bela PRN Q2HR PRN PO SORE THROAT ; Start 04/01/18 at 23:45 Fentanyl (Duragesic 25mcg/ Hr) 1 patch Q3DAYS TD ; Start 04/04/18 at 09:00; Stop 04/04/18 at 09:00; Status DC Info (Do NOT chart on this placeholder) 1 each 1X ONCE MC Last administered on 04/02/18at 00:00; Start 04/02/18 at 00:00; Stop 04/02/18 at 00:01; Status DC Famotidine (Pepcid) 20 mg BID PO Last administered on 04/10/18 09:10; Start at 09:00 Fentanyl (Duragesic 12mcg/ Hr) 1 patch Q3DAYS TD Last administered on 04/08/18at 07:52; Start 04/02/18 at 14:00 Fentanyl (Duragesic 25mcg/ Hr) 1 patch Q3DAYS TD Last administered on 04/08/18at 09:00; Start 04/02/18 at 14:00 Hydroxyzine HCl (Atarax) 25 mg PRN Q2HR PRN PO ANXIETY Last administered on 04/07at 22:31; Start 04/03/18 at 18:30 Quetiapine Fumarate (SEROquel) 12.5 mg 0900,1300,1700 PO Last administered on at 18:39; Start 04/04/18 at 09:00; Stop 04/06/18 at 18:51; Status DC Ertapenem 1 gm/ Sodium Chloride 50 ml @ 100 mls/hr DAILY IV ; Start 04/11/18 at 09:00; Stop 04/11/18 at 09:00; Status DC Cefepime HCl (Maxipime) 1 gm Q24H IM Last administered on 04/10/18 13:11; Start 04/05/18 at 13:30 Alprazolam (Xanax) 0.5 mg BID PO Last administered on 04/10/18 09:11; Start at 21:00 Alprazolam (Xanax) 0.25 mg DAILY@1400 PO Last administered on 04/10/18at 13:06; Start 04/06/18 at 14:00 Lactobacillus Rhamnosus (Culturelle) 1 cap BID PO Last administered on at 09:10; Start 04/06/18 at 21:00 Quetiapine Fumarate (SEROquel) 25 mg BIDWMEALS PO Last administered on at 18:08; Start 04/07/18 at 08:00 Quetiapine Fumarate (SEROquel) 12.5 mg DAILYWLUN PO Last administered on at 12:30; Start 04/07/18 at 12:00; Stop 04/08/18 at 18:27; Status DC Quetiapine Fumarate (SEROquel) 25 mg DAILYWLUN PO Last administered on at 13:06; Start 04/09/18 at 12:00 Active Scripts Active Reported Fentanyl 1 Each Patch.td72 37.5 Mcg TD Q3DAYS Ondansetron Hcl 4 Mg Tablet 4 Mg PO PRN Q8HRS PRN Xanax (Alprazolam) 0.5 Mg Tablet 0.5 Mg PO TID Throat Drops (Pectin) 2.8 Mg Lozenge 1 Unit PO PRN Q3HRS PRN Simvastatin 40 Mg Tablet 40 Mg PO HS Reglan (Metoclopramide Hcl) 5 Mg Tablet 5 Mg PO DAILY Reglan (Metoclopramide Hcl) 5 Mg Tablet 5 Mg PO PRN Q6HRS PRN Refresh Optive Eye Drops (Carboxymethylcellulos/Glycerin) 15 Ml Drops 1 Drop EACHEYE QID Oyster Shell 500 Mg + Vit D Tb (Calcium Carbonate/Vitamin D3) 1 Each Tablet 1 Tab PO BID Oxycodone Hcl 5 Mg Capsule 5 Mg PO PRN Q6HRS PRN Oxybutynin Chloride Er (Oxybutynin Chloride) 10 Mg Tab.er.24 10 Mg PO DAILY Omeprazole 40 Mg Capsule.dr 40 Mg PO HS Maalox Advanced Suspension (Mag Hydrox/Aluminum Hyd/Simeth) 355 Ml Oral.susp 30 Ml PO PRN Q6HRS PRN Melatonin 5 Mg Tablet (Melatonin/Pyridoxine) 1 Each Tablet 5 Mg PO PRN QHS PRN Lisinopril 10 Mg Tablet 10 Mg PO DAILY Lactase 3,000 Unit Tablet 3 Tab PO TIDWMEALS Imodium A-D (Loperamide HCl) 2 Mg Capsule 2 Mg PO PRN Q4HRS PRN Guaifenesin 100 Mg/5 Ml Liquid 15 Ml PO PRN Q6HRS PRN Famotidine 20 Mg Tablet 20 Mg PO DAILY Dicyclomine Hcl 20 Mg Tablet 20 Mg PO QID Cymbalta (Duloxetine Hcl) 60 Mg Capsule.dr 60 Mg PO DAILY Cyclobenzaprine Hcl 5 Mg Tablet 5 Mg PO PRN Q8HRS PRN Vitamin B-12 (Cyanocobalamin (Vitamin B-12)) 1,000 Mcg Tablet 1,000 Mcg PO DAILY Colace (Docusate Sodium) 100 Mg Capsule 100 Mg PO PRN DAILY PRN Peridex (Chlorhexidine Gluconate) 15 Ml Mouthwash 15 Ml PO BID Carvedilol 6.25 Mg Tablet 6.25 Mg PO BIDWMEALS Bisacodyl 10 Mg Supp.rect 10 Mg RC PRN DAILY PRN Biofreeze (Menthol) 118 Ml Gel..ml. 1 Bushra TP PRN Q6HRS PRN Aquaphor Ointment (Mineral Oil/Hydrophil Petrolat) 396 Gm Oint...g. 1 Bushra TP HS Albuterol Sulfate Neb Soln (Albuterol Sulfate) 2.5 Mg/3 Ml Vial.neb 3 Ml NEB PRN Q6HRS PRN I have reviewed the current psychotropics carefully including drug interactions. Risk benefit ratio favors no change other than as noted in my dictated progress note. Diagnosis: Problems: (1) Mental status alteration (2) Anxiety disorder (3) Bipolar affective disorder, mixed (4) Dementia in Alzheimer's disease with depression (5) Dementia in Alzheimer's disease with delusions (6) Dementia, vascular, with delusions (7) Dementia, vascular, with depression (8) Impulse control disorder KALIE RODRÍGUEZ MD Apr 10, 2018 20:44
[2018-04-10] MEDS: MINERAL OIL/PETROLATUM TOPICAL CREAM 113GM JAR. TP SCH (20:45)
[2018-04-11 05:55] VITALS: BP 128/53
[2018-04-11] MEDS: QUEtiapine 25 MG TABLET. PO SCH ×3 (08:40→17:26)
[2018-04-11] MEDS: METOCLOPRAMIDE 5 MG TABLET PO SCH (08:40)
[2018-04-11] MEDS: FAMOTIDINE 20 MG TABLET PO SCH ×2 (08:40→19:48)
[2018-04-11] MEDS: CALCIUM CARB/VIT D3 500/200 TABLET PO SCH ×2 (08:40→17:25)
[2018-04-11] MEDS: DULoxetine HCL 60 MG CAPSULE.DR PO SCH (08:40)
[2018-04-11] MEDS: OXYBUTYNIN CHLORIDE 5 MG TABLET PO SCH ×2 (08:40→19:50)
[2018-04-11] MEDS: CARVEDILOL 6.25 MG TABLET PO SCH ×2 (08:40→17:26)
[2018-04-11] MEDS: LACTASE 3,000 UNIT TABLET PO SCH ×3 (08:40→17:25)
[2018-04-11] MEDS: LACTOBACILLUS RHAMNOSUS GG 1 CAPSULE. PO SCH ×2 (08:40→19:48)
[2018-04-11] MEDS: DICYCLOMINE HCL 20 MG TABLET PO SCH ×4 (08:40→19:48)
[2018-04-11] MEDS: LISINOPRIL 10 MG TABLET PO SCH (08:41)
[2018-04-11] MEDS: CHLORHEXIDINE 0.12% 15 ML MOUTHWASH. SWSP SCH ×2 (08:41→19:48)
[2018-04-11] MEDS: POLYVINYL ALCOHOL 1.4% OPHTH SOLUTION 15ML BOTTLE. OU SCH ×4 (08:43→19:50)
[2018-04-11] MEDS: ALPRAZolam 0.5 MG TABLET PO SCH ×2 (08:43→19:49)
[2018-04-11] MEDS: fentaNYL 12MCG/HR 1 PATCH PATCH TD SCH (08:43)
[2018-04-11] MEDS: fentaNYL 25MCG/HR 1 PATCH PATCH TD SCH (08:43)
[2018-04-11] MEDS ORDERED: ERTAPENEM 1 GM in IV NORMAL SALINE 50ML 50 ML IV SCH (09:00)
[2018-04-11 09:44] LABS: BASO # 0.1 x10^3/uL (0.0-0.2); BASO % 1 % (0-3); EOS # 0.2 x10^3/uL (0.0-0.7); EOS % 3 % (0-3); HEMATOCRIT 32.5 % (36.0-47.0); HEMOGLOBIN 10.9 g/dL (12.0-15.5); LYMPH # 1.5 x10^3/uL (1.0-4.8); LYMPH % 22 % (24-48); MEAN CORPUSCULAR HEMOGLOBIN 32 pg (25-35); MEAN CORPUSCULAR HGB CONC 34 g/dL (31-37); MEAN CORPUSCULAR VOLUME 96 fL (79-100); MONO # 0.5 x10^3/uL (0.0-1.1); MONO % 8 % (0-9); NEUT # 4.5 x10^3uL (1.8-7.7); NEUT % 67 % (31-73); PLATELET COUNT 180 x10^3/uL (140-400); RED BLOOD COUNT 3.38 x10^6/uL (3.50-5.40); RED CELL DISTRIBUTION WIDTH 14.3 % (11.5-14.5); WHITE BLOOD COUNT 6.8 x10^3/uL (4.0-11.0)
[2018-04-11 10:02] LABS: CALCIUM 9.3 mg/dL (8.5-10.1); CREATININE 1.2 mg/dL (0.6-1.0); POTASSIUM 4.4 mmol/L (3.5-5.1); TOTAL BILIRUBIN 0.5 mg/dL (0.2-1.0); TOTAL PROTEIN 6.1 g/dL (6.4-8.2)
[2018-04-11] MEDS: ALPRAZolam 0.25 MG TABLET PO SCH (14:45)
[2018-04-11] MEDS: CEFEPIME HCL 1 GM VIAL IM SCH (14:46)
[2018-04-11 16:11] VITALS: BP 126/74
[2018-04-11] MEDS: hydrOXYzine HCL 25 MG TABLET PO PRN (18:23)
[2018-04-11] MEDS: SIMVASTATIN 40 MG TABLET. PO SCH (19:49)
[2018-04-11] MEDS: MINERAL OIL/PETROLATUM TOPICAL CREAM 113GM JAR. TP SCH (19:50)
--- NOTE | 2018-04-11 21:00 | PDOC ---
Exam Note: Johnny Note: Please also refer to the separate dictated note~for this date of service dictated separately.~Patient seen individually. Discussed the patient with Nursing staff reviewed the chart.~Reviewed interim history and current functioning. Reviewed vital signs,~Labs/ Radiology~and current medications noted below. Continue current treatment with the changes noted in the dictated addendum note Assessment: Vital Signs: Vital Signs Date Time Temp Pulse Resp B/P (MAP) Pulse Ox O2 Delivery O2 Flow Rate FiO2 04/11/18 17:26 99 126/74 04/11/18 16:11 98.0 20 98 04/10/18 06:24 2.0 04/08/18 12:54 Room Air I&O Intake and Output 04/11/18 06:59 Intake Total 370 ml Balance 370 ml Intake Oral 370 ml # Voids 1 Labs: Laboratory Tests Test 04/11/18 09:17 White Blood Count 6.8 x10^3/uL (4.0-11.0) Red Blood Count 3.38 x10^6/uL (3.50-5.40) L Hemoglobin 10.9 g/dL (12.0-15.5) L Hematocrit 32.5 % (36.0-47.0) L Mean Corpuscular Volume 96 fL (79-100) Mean Corpuscular Hemoglobin 32 pg (25-35) Mean Corpuscular Hemoglobin Concent 34 g/dL (31-37) Red Cell Distribution Width 14.3 % (11.5-14.5) Platelet Count 180 x10^3/uL (140-400) Neutrophils (%) (Auto) 67 % (31-73) Lymphocytes (%) (Auto) 22 % (24-48) L Monocytes (%) (Auto) 8 % (0-9) Eosinophils (%) (Auto) 3 % (0-3) Basophils (%) (Auto) 1 % (0-3) Neutrophils # (Auto) 4.5 x10^3uL (1.8-7.7) Lymphocytes # (Auto) 1.5 x10^3/uL (1.0-4.8) Monocytes # (Auto) 0.5 x10^3/uL (0.0-1.1) Eosinophils # (Auto) 0.2 x10^3/uL (0.0-0.7) Basophils # (Auto) 0.1 x10^3/uL (0.0-0.2) Sodium Level 141 mmol/L (136-145) Potassium Level 4.4 mmol/L (3.5-5.1) Chloride Level 104 mmol/L (98-107) Carbon Dioxide Level 32 mmol/L (21-32) Anion Gap 5 (6-14) L Blood Urea Nitrogen 23 mg/dL (7-20) H Creatinine 1.2 mg/dL (0.6-1.0) H Estimated GFR (Cockcroft-Gault) 44.0 BUN/Creatinine Ratio 19 (6-20) Glucose Level 138 mg/dL (70-99) H Calcium Level 9.3 mg/dL (8.5-10.1) Total Bilirubin 0.5 mg/dL (0.2-1.0) Aspartate Amino Transferase (AST) 17 U/L (15-37) Alanine Aminotransferase (ALT) 9 U/L (14-59) L Alkaline Phosphatase 78 U/L (46-116) Total Protein 6.1 g/dL (6.4-8.2) L Albumin 3.0 g/dL (3.4-5.0) L Albumin/Globulin Ratio 1.0 (1.0-1.7) Current Medications: Meds: Current Medications Acetaminophen (Tylenol) 650 mg PRN Q6HRS PRN PO PAIN / TEMP Last administered on 04/02/18at 11:45; Start 04/01/18 at 23:00 Multi-Ingredient Ointment (Analgesic [place]) 1 bushra PRN QID PRN TP MUSCLE PAIN; Start 04/01/18 at 23:00 Al Hydroxide/Mg Hydroxide (Mylanta Plus Xs) 15 ml PRN AFTMEALHC PRN PO DYSPEPSIA Last administered on 04/02/18at 12:27; Start 04/01/18 at 23:00 Magnesium Hydroxide (Milk Of Magnesia) 2,400 mg PRN QHS PRN PO CONSTIPATION Last administered on 04/10/18at 09:26; Start 04/01/18 at 23:00 Alprazolam (Xanax) 0.5 mg TID PO Last administered on 04/05/18at 13:43; Start at 09:00; Stop 04/05/18 at 18:13; Status DC Duloxetine HCl (Cymbalta) 60 mg DAILY PO Last administered on 04/11/18 08:40; Start 04/02/18 at 09:00 Melatonin 6 mg PRN QHS PRN PO INSOMNIA Last administered on 04/04/18at 20:48; Start 04/01/18 at 23:45 Albuterol Sulfate (Ventolin) 2.5 mg PRN Q6HRS PRN NEB SHORTNESS OF BREATH; Start 04/01/18 at 23:30 Chlorhexidine Gluconate (Peridex) 15 ml BID SWSP Last administered on 04/11/18 19:48; Start 04/02/18 at 09:00 Cyanocobalamin (Vitamin B-12) 1,000 mcg DAILY PO Last administered on 08:51; Start 04/02/18 at 09:00; Status Future Hold Guaifenesin (Robitussin) 300 mg PRN Q6HRS PRN PO COUGH; Start 04/01/18 at 23:30 Lisinopril (Prinivil) 10 mg DAILY PO Last administered on 04/11/18at 08:41; Start 04/02/18 at 09:00 Simvastatin (Zocor) 40 mg HS PO Last administered on 04/11/18 19:49; Start at 21:00 Bisacodyl (Dulcolax Supp) 10 mg PRN DAILY PRN [place] CONSTIPATION; Start 04/01/18 at 23:45 Calcium/Vitamin D (Oscal D 500mg/ 200uts) 1 tab BIDWMEALS PO Last administered on 04/11/18 17:25; Start 04/02/18 at 08:00 Artificial Tears (Artificial Tears) 1 drop QID OU Last administered on 19:50; Start 04/02/18 at 09:00 Carvedilol (Coreg) 6.25 mg BIDWMEALS PO Last administered on 04/11/18 17:26; Start 04/02/18 at 08:00 Cyclobenzaprine HCl (Flexeril) 5 mg PRN Q8HRS PRN PO MUSCLE SPASMS Last administered on 04/04/18at 11:54; Start 04/01/18 at 23:45 Dicyclomine HCl (Bentyl) 20 mg QID PO Last administered on 04/11/18at 19:48; Start 04/02/18 at 09:00 Docusate Sodium (Colace) 100 mg PRN DAILY PRN PO CONSTIPATION; Start 04/01/18 at 23:45 Famotidine (Pepcid) 20 mg DAILY PO ; Start 04/02/18 at 09:00; Stop 04/02/18 at 09:00; Status DC Fentanyl (Duragesic 12mcg/ Hr) 1 patch Q3DAYS TD ; Start 04/04/18 at 09:00; Stop 04/04/18 at 09:00; Status DC Lactase (Lactaid) 9,000 unit TIDWMEALS PO Last administered on 04/11/18at 17:25; Start 04/02/18 at 08:00 Loperamide HCl (Imodium) 2 mg PRN Q4HRS PRN PO DIARRHEA; Start 04/01/18 at 23: 45 Non-Formulary Medication (Mag Hydrox/ Aluminum Hyd/ Simeth (Maalox Advanced Suspension)) 30 ml PRN Q6HRS PRN PO DYSPEPSIA; Start 04/01/18 at 23:30; Status UNV Non-Formulary Medication (Menthol (Biofreeze)) 1 bushra PRN Q6HRS PRN TP PAIN; Start 04/01/18 at 23:30; Status UNV Metoclopramide HCl (Reglan) 5 mg DAILY PO Last administered on 04/11/18at 08:40; Start 04/02/18 at 09:00 Metoclopramide HCl (Reglan) 5 mg PRN Q6HRS PRN PO NAUSEA/VOMITING Last administered on 04/04/18at 15:13; Start 04/01/18 at 23:45 Multi-Ingred Cream/Lotion/Oil/ Oint (Hydrocerin) 1 bushra QHS TP Last administered on 04/11/18at 19:50; Start 04/02/18 at 21:00 Pantoprazole Sodium (Protonix) 40 mg QHS PO ; Start 04/02/18 at 21:00; Stop at 21:00; Status DC Ondansetron HCl (Zofran Odt) 4 mg PRN Q8HRS PRN PO NAUSEA/VOMITING Last administered on 04/06/18at 14:23; Start 04/01/18 at 23:45 Oxybutynin Chloride (Ditropan) 5 mg BID PO Last administered on 04/11/18 19:50 ; Start 04/02/18 at 09:00 Oxycodone HCl (Roxicodone) 5 mg PRN Q6HRS PRN PO PAIN Last administered on 18:16; Start 04/01/18 at 23:45 Throat Lozenges (Cepacol Sore Throat Lozenge) 1 bela PRN Q2HR PRN PO SORE THROAT ; Start 04/01/18 at 23:45 Fentanyl (Duragesic 25mcg/ Hr) 1 patch Q3DAYS TD ; Start 04/04/18 at 09:00; Stop 04/04/18 at 09:00; Status DC Info (Do NOT chart on this placeholder) 1 each 1X ONCE MC Last administered on 04/02/18at 00:00; Start 04/02/18 at 00:00; Stop 04/02/18 at 00:01; Status DC Famotidine (Pepcid) 20 mg BID PO Last administered on 04/11/18 19:48; Start at 09:00 Fentanyl (Duragesic 12mcg/ Hr) 1 patch Q3DAYS TD Last administered on 04/11/18 08:43; Start 04/02/18 at 14:00 Fentanyl (Duragesic 25mcg/ Hr) 1 patch Q3DAYS TD Last administered on 04/11/18 08:43; Start 04/02/18 at 14:00 Hydroxyzine HCl (Atarax) 25 mg PRN Q2HR PRN PO ANXIETY Last administered on 04/11 18:23; Start 04/03/18 at 18:30 Quetiapine Fumarate (SEROquel) 12.5 mg 0900,1300,1700 PO Last administered on 18:39; Start 04/04/18 at 09:00; Stop 04/06/18 at 18:51; Status DC Ertapenem 1 gm/ Sodium Chloride 50 ml @ 100 mls/hr DAILY IV ; Start 04/11/18 at 09:00; Stop 04/11/18 at 09:00; Status DC Cefepime HCl (Maxipime) 1 gm Q24H IM Last administered on 04/11/18at 14:46; Start 04/05/18 at 13:30; Stop 04/12/18 at 13:30 Alprazolam (Xanax) 0.5 mg BID PO Last administered on 04/11/18at 08:43; Start at 21:00; Stop 04/11/18 at 15:49; Status DC Alprazolam (Xanax) 0.25 mg DAILY@1400 PO Last administered on 04/11/18at 14:45; Start 04/06/18 at 14:00; Stop 04/11/18 at 15:49; Status DC Lactobacillus Rhamnosus (Culturelle) 1 cap BID PO Last administered on at 19:48; Start 04/06/18 at 21:00 Quetiapine Fumarate (SEROquel) 25 mg BIDWMEALS PO Last administered on at 08:40; Start 04/07/18 at 08:00; Stop 04/11/18 at 15:49; Status DC Quetiapine Fumarate (SEROquel) 12.5 mg DAILYWLUN PO Last administered on at 12:30; Start 04/07/18 at 12:00; Stop 04/08/18 at 18:27; Status DC Quetiapine Fumarate (SEROquel) 25 mg DAILYWLUN PO Last administered on at 14:45; Start 04/09/18 at 12:00; Stop 04/11/18 at 15:49; Status DC Alprazolam (Xanax) 0.25 mg BID@0900,1400 PO ; Start 04/12/18 at 09:00 Alprazolam (Xanax) 0.5 mg QHS PO Last administered on 04/11/18at 19:49; Start 04/11/18 at 21:00; Stop 04/13/18 at 21:01 Quetiapine Fumarate (SEROquel) 37.5 mg TIDWMEALS PO Last administered on at 17:26; Start 04/11/18 at 17:00 Alprazolam (Xanax) 0.25 mg HS PO ; Start 04/14/18 at 21:00 Active Scripts Active Reported Fentanyl 1 Each Patch.td72 37.5 Mcg TD Q3DAYS Ondansetron Hcl 4 Mg Tablet 4 Mg PO PRN Q8HRS PRN Xanax (Alprazolam) 0.5 Mg Tablet 0.5 Mg PO TID Throat Drops (Pectin) 2.8 Mg Lozenge 1 Unit PO PRN Q3HRS PRN Simvastatin 40 Mg Tablet 40 Mg PO HS Reglan (Metoclopramide Hcl) 5 Mg Tablet 5 Mg PO DAILY Reglan (Metoclopramide Hcl) 5 Mg Tablet 5 Mg PO PRN Q6HRS PRN Refresh Optive Eye Drops (Carboxymethylcellulos/Glycerin) 15 Ml Drops 1 Drop EACHEYE QID Oyster Shell 500 Mg + Vit D Tb (Calcium Carbonate/Vitamin D3) 1 Each Tablet 1 Tab PO BID Oxycodone Hcl 5 Mg Capsule 5 Mg PO PRN Q6HRS PRN Oxybutynin Chloride Er (Oxybutynin Chloride) 10 Mg Tab.er.24 10 Mg PO DAILY Omeprazole 40 Mg Capsule.dr 40 Mg PO HS Maalox Advanced Suspension (Mag Hydrox/Aluminum Hyd/Simeth) 355 Ml Oral.susp 30 Ml PO PRN Q6HRS PRN Melatonin 5 Mg Tablet (Melatonin/Pyridoxine) 1 Each Tablet 5 Mg PO PRN QHS PRN Lisinopril 10 Mg Tablet 10 Mg PO DAILY Lactase 3,000 Unit Tablet 3 Tab PO TIDWMEALS Imodium A-D (Loperamide HCl) 2 Mg Capsule 2 Mg PO PRN Q4HRS PRN Guaifenesin 100 Mg/5 Ml Liquid 15 Ml PO PRN Q6HRS PRN Famotidine 20 Mg Tablet 20 Mg PO DAILY Dicyclomine Hcl 20 Mg Tablet 20 Mg PO QID Cymbalta (Duloxetine Hcl) 60 Mg Capsule.dr 60 Mg PO DAILY Cyclobenzaprine Hcl 5 Mg Tablet 5 Mg PO PRN Q8HRS PRN Vitamin B-12 (Cyanocobalamin (Vitamin B-12)) 1,000 Mcg Tablet 1,000 Mcg PO DAILY Colace (Docusate Sodium) 100 Mg Capsule 100 Mg PO PRN DAILY PRN Peridex (Chlorhexidine Gluconate) 15 Ml Mouthwash 15 Ml PO BID Carvedilol 6.25 Mg Tablet 6.25 Mg PO BIDWMEALS Bisacodyl 10 Mg Supp.rect 10 Mg RC PRN DAILY PRN Biofreeze (Menthol) 118 Ml Gel..ml. 1 [place] TP PRN Q6HRS PRN Aquaphor Ointment (Mineral Oil/Hydrophil Petrolat) 396 Gm Oint...g. 1 Bushra TP HS Albuterol Sulfate Neb Soln (Albuterol Sulfate) 2.5 Mg/3 Ml Vial.neb 3 Ml NEB PRN Q6HRS PRN I have reviewed the current psychotropics carefully including drug interactions. Risk benefit ratio favors no change other than as noted in my dictated progress note. Diagnosis: Problems: (1) Mental status alteration (2) Anxiety disorder (3) Bipolar affective disorder, mixed (4) Dementia in Alzheimer's disease with depression (5) Dementia in Alzheimer's disease with delusions (6) Dementia, vascular, with delusions (7) Dementia, vascular, with depression (8) Impulse control disorder KALIE RODRÍGUEZ MD Apr 11, 2018 21:00
--- NOTE | 2018-04-11 22:29 | PN ---
DATE: 04/09/2018 PSYCHIATRIC PROGRESS NOTE This is a late entry 04/09/2018, covers elements not covered in my initial note. SUBJECTIVE: I met with the patient in the evening. The patient slept 10 hours previous evening, remains somewhat withdrawn at times. REVIEW OF SYSTEMS: Ambulation impaired with walker or wheelchair. No CV, , pulmonary, eye, ENT system symptoms on review, vague somatic symptoms, pain symptoms, occasional chest and back pain. MENTAL STATUS EXAM: Oriented to herself and situation. Speech coherent, less pressured. Abstraction fair, computation impaired, language function intact. Mood and affect showing ongoing anxiety, somatic preoccupation improved, lability. IMPRESSION: Unchanged from initial note. PLAN: No change from a psychiatric standpoint. MAN Ziggy RODRÍGUEZ MD DR: SHIRA/tessie JOB#: [id number] / [id number]
--- NOTE | 2018-04-11 22:31 | PN ---
DATE: 04/10/2018 PSYCHIATRIC PROGRESS NOTE This is a late entry 04/10/2018, covers elements not covered in my initial note. SUBJECTIVE: I met with the patient in the afternoon. The patient slept 10 hours previous evening. Overall; doing better, compliant with medications, less somatically preoccupied. REVIEW OF SYSTEMS: Ambulation impaired. No CV, , pulmonary, eye system symptoms on review. Less pain, chronic chest and back pain. MENTAL STATUS EXAM: Oriented to herself and situation. Speech coherent, less pressured. Abstraction fair, computation impaired, language function intact, attention span short. Mood and affect remain somewhat labile. LABORATORY DATA: Reviewed. IMPRESSION: Unchanged from initial note. PLAN: No change from a psychiatric standpoint from initial note. MAN Ziggy RODRÍGUEZ MD DR: SHIRA/tessie JOB#: [id number] / [id number]
[2018-04-12 05:57] VITALS: BP 128/68
[2018-04-12] MEDS: OXYBUTYNIN CHLORIDE 5 MG TABLET PO SCH ×2 (08:09→20:32)
[2018-04-12] MEDS: DICYCLOMINE HCL 20 MG TABLET PO SCH ×4 (08:09→20:32)
[2018-04-12] MEDS: CHLORHEXIDINE 0.12% 15 ML MOUTHWASH. SWSP SCH ×2 (08:09→20:32)
[2018-04-12] MEDS: LISINOPRIL 10 MG TABLET PO SCH (08:10)
[2018-04-12] MEDS: LACTOBACILLUS RHAMNOSUS GG 1 CAPSULE. PO SCH ×2 (08:10→20:32)
[2018-04-12] MEDS: CARVEDILOL 6.25 MG TABLET PO SCH ×2 (08:10→17:17)
[2018-04-12] MEDS: QUEtiapine 25 MG TABLET. PO SCH ×3 (08:10→17:18)
[2018-04-12] MEDS: CALCIUM CARB/VIT D3 500/200 TABLET PO SCH ×2 (08:10→17:17)
[2018-04-12] MEDS: DULoxetine HCL 60 MG CAPSULE.DR PO SCH (08:10)
[2018-04-12] MEDS: FAMOTIDINE 20 MG TABLET PO SCH ×2 (08:11→20:32)
[2018-04-12] MEDS: LACTASE 3,000 UNIT TABLET PO SCH ×3 (08:11→17:17)
[2018-04-12] MEDS: METOCLOPRAMIDE 5 MG TABLET PO SCH (08:11)
[2018-04-12] MEDS: POLYVINYL ALCOHOL 1.4% OPHTH SOLUTION 15ML BOTTLE. OU SCH ×4 (08:12→20:34)
[2018-04-12] MEDS: ALPRAZolam 0.25 MG TABLET PO SCH ×2 (08:13→14:11)
[2018-04-12] MEDS: CEFEPIME HCL 1 GM VIAL IM SCH (14:11)
[2018-04-12 16:43] VITALS: BP 107/51
[2018-04-12] MEDS: SIMVASTATIN 40 MG TABLET. PO SCH (20:32)
[2018-04-12] MEDS: MINERAL OIL/PETROLATUM TOPICAL CREAM 113GM JAR. TP SCH (20:34)
[2018-04-12] MEDS: ALPRAZolam 0.5 MG TABLET PO SCH (20:34)
--- NOTE | 2018-04-12 23:09 | PDOC ---
Exam Note: Johnny Note: Please also refer to the separate dictated note~for this date of service dictated separately.~Patient seen individually. Discussed the patient with Nursing staff reviewed the chart.~Reviewed interim history and current functioning. Reviewed vital signs,~Labs/ Radiology~and current medications noted below. Continue current treatment with the changes noted in the dictated addendum note Assessment: Vital Signs: Vital Signs Date Time Temp Pulse Resp B/P (MAP) Pulse Ox O2 Delivery O2 Flow Rate FiO2 04/12/18 17:17 91 107/51 04/12/18 16:43 98.6 17 97 Room Air 04/10/18 06:24 2.0 I&O Intake and Output 04/12/18 06:59 Intake Total 480 ml Balance 480 ml Intake Oral 480 ml # Voids 1 Current Medications: Meds: Current Medications Acetaminophen (Tylenol) 650 mg PRN Q6HRS PRN PO PAIN / TEMP Last administered on 04/02/18 11:45; Start 04/01/18 at 23:00 Multi-Ingredient Ointment (Analgesic [place]) 1 bushra PRN QID PRN TP MUSCLE PAIN; Start 04/01/18 at 23:00 Al Hydroxide/Mg Hydroxide (Mylanta Plus Xs) 15 ml PRN AFTMEALHC PRN PO DYSPEPSIA Last administered on 04/02/18 12:27; Start 04/01/18 at 23:00 Magnesium Hydroxide (Milk Of Magnesia) 2,400 mg PRN QHS PRN PO CONSTIPATION Last administered on 04/10/18 09:26; Start 04/01/18 at 23:00 Alprazolam (Xanax) 0.5 mg TID PO Last administered on 04/05/18 13:43; Start at 09:00; Stop 04/05/18 at 18:13; Status DC Duloxetine HCl (Cymbalta) 60 mg DAILY PO Last administered on 04/12/18 08:10; Start 04/02/18 at 09:00 Melatonin 6 mg PRN QHS PRN PO INSOMNIA Last administered on 04/04/18 20:48; Start 04/01/18 at 23:45 Albuterol Sulfate (Ventolin) 2.5 mg PRN Q6HRS PRN NEB SHORTNESS OF BREATH Last administered on 04/12/18 15:23; Start 04/01/18 at 23:30 Chlorhexidine Gluconate (Peridex) 15 ml BID SWSP Last administered on 04/12/18 20:32; Start 04/02/18 at 09:00 Cyanocobalamin (Vitamin B-12) 1,000 mcg DAILY PO Last administered on 08:51; Start 04/02/18 at 09:00; Status Future Hold Guaifenesin (Robitussin) 300 mg PRN Q6HRS PRN PO COUGH; Start 04/01/18 at 23:30 Lisinopril (Prinivil) 10 mg DAILY PO Last administered on 04/12/18 08:10; Start 04/02/18 at 09:00 Simvastatin (Zocor) 40 mg HS PO Last administered on 04/12/18 20:32; Start at 21:00 Bisacodyl (Dulcolax Supp) 10 mg PRN DAILY PRN [place] CONSTIPATION; Start 04/01/18 at 23:45 Calcium/Vitamin D (Oscal D 500mg/ 200uts) 1 tab BIDWMEALS PO Last administered on 04/12/18 17:17; Start 04/02/18 at 08:00 Artificial Tears (Artificial Tears) 1 drop QID OU Last administered on 20:34; Start 04/02/18 at 09:00 Carvedilol (Coreg) 6.25 mg BIDWMEALS PO Last administered on 04/12/18 17:17; Start 04/02/18 at 08:00 Cyclobenzaprine HCl (Flexeril) 5 mg PRN Q8HRS PRN PO MUSCLE SPASMS Last administered on 04/04/18 11:54; Start 04/01/18 at 23:45 Dicyclomine HCl (Bentyl) 20 mg QID PO Last administered on 04/12/18 20:32; Start 04/02/18 at 09:00 Docusate Sodium (Colace) 100 mg PRN DAILY PRN PO CONSTIPATION; Start 04/01/18 at 23:45 Famotidine (Pepcid) 20 mg DAILY PO ; Start 04/02/18 at 09:00; Stop 04/02/18 at 09:00; Status DC Fentanyl (Duragesic 12mcg/ Hr) 1 patch Q3DAYS TD ; Start 04/04/18 at 09:00; Stop 04/04/18 at 09:00; Status DC Lactase (Lactaid) 9,000 unit TIDWMEALS PO Last administered on 04/12/18 17:17; Start 04/02/18 at 08:00 Loperamide HCl (Imodium) 2 mg PRN Q4HRS PRN PO DIARRHEA; Start 04/01/18 at 23: 45 Non-Formulary Medication (Mag Hydrox/ Aluminum Hyd/ Simeth (Maalox Advanced Suspension)) 30 ml PRN Q6HRS PRN PO DYSPEPSIA; Start 04/01/18 at 23:30; Status UNV Non-Formulary Medication (Menthol (Biofreeze)) 1 bushra PRN Q6HRS PRN TP PAIN; Start 04/01/18 at 23:30; Status UNV Metoclopramide HCl (Reglan) 5 mg DAILY PO Last administered on 04/12/18 08:11; Start 04/02/18 at 09:00 Metoclopramide HCl (Reglan) 5 mg PRN Q6HRS PRN PO NAUSEA/VOMITING Last administered on 04/04/18 15:13; Start 04/01/18 at 23:45 Multi-Ingred Cream/Lotion/Oil/ Oint (Hydrocerin) 1 bushra QHS TP Last administered on 04/12/18at 20:34; Start 04/02/18 at 21:00 Pantoprazole Sodium (Protonix) 40 mg QHS PO ; Start 04/02/18 at 21:00; Stop at 21:00; Status DC Ondansetron HCl (Zofran Odt) 4 mg PRN Q8HRS PRN PO NAUSEA/VOMITING Last administered on 04/06/18 14:23; Start 04/01/18 at 23:45 Oxybutynin Chloride (Ditropan) 5 mg BID PO Last administered on 04/12/18 20:32 ; Start 04/02/18 at 09:00 Oxycodone HCl (Roxicodone) 5 mg PRN Q6HRS PRN PO PAIN Last administered on 18:16; Start 04/01/18 at 23:45 Throat Lozenges (Cepacol Sore Throat Lozenge) 1 bela PRN Q2HR PRN PO SORE THROAT ; Start 04/01/18 at 23:45 Fentanyl (Duragesic 25mcg/ Hr) 1 patch Q3DAYS TD ; Start 04/04/18 at 09:00; Stop 04/04/18 at 09:00; Status DC Info (Do NOT chart on this placeholder) 1 each 1X ONCE MC Last administered on 04/02/18at 00:00; Start 04/02/18 at 00:00; Stop 04/02/18 at 00:01; Status DC Famotidine (Pepcid) 20 mg BID PO Last administered on 04/12/18at 20:32; Start at 09:00 Fentanyl (Duragesic 12mcg/ Hr) 1 patch Q3DAYS TD Last administered on 04/11/18 08:43; Start 04/02/18 at 14:00 Fentanyl (Duragesic 25mcg/ Hr) 1 patch Q3DAYS TD Last administered on 04/11/18 08:43; Start 04/02/18 at 14:00 Hydroxyzine HCl (Atarax) 25 mg PRN Q2HR PRN PO ANXIETY Last administered on 04/11 18:23; Start 04/03/18 at 18:30 Quetiapine Fumarate (SEROquel) 12.5 mg 0900,1300,1700 PO Last administered on at 18:39; Start 04/04/18 at 09:00; Stop 04/06/18 at 18:51; Status DC Ertapenem 1 gm/ Sodium Chloride 50 ml @ 100 mls/hr DAILY IV ; Start 04/11/18 at 09:00; Stop 04/11/18 at 09:00; Status DC Cefepime HCl (Maxipime) 1 gm Q24H IM Last administered on 04/12/18at 14:11; Start 04/05/18 at 13:30; Stop 04/12/18 at 13:31; Status DC Alprazolam (Xanax) 0.5 mg BID PO Last administered on 04/11/18 08:43; Start at 21:00; Stop 04/11/18 at 15:49; Status DC Alprazolam (Xanax) 0.25 mg DAILY@1400 PO Last administered on 04/11/18 14:45; Start 04/06/18 at 14:00; Stop 04/11/18 at 15:49; Status DC Lactobacillus Rhamnosus (Culturelle) 1 cap BID PO Last administered on at 20:32; Start 04/06/18 at 21:00 Quetiapine Fumarate (SEROquel) 25 mg BIDWMEALS PO Last administered on at 08:40; Start 04/07/18 at 08:00; Stop 04/11/18 at 15:49; Status DC Quetiapine Fumarate (SEROquel) 12.5 mg DAILYWLUN PO Last administered on at 12:30; Start 04/07/18 at 12:00; Stop 04/08/18 at 18:27; Status DC Quetiapine Fumarate (SEROquel) 25 mg DAILYWLUN PO Last administered on at 14:45; Start 04/09/18 at 12:00; Stop 04/11/18 at 15:49; Status DC Alprazolam (Xanax) 0.25 mg BID@0900,1400 PO Last administered on 04/12/18 14:11 ; Start 04/12/18 at 09:00 Alprazolam (Xanax) 0.5 mg QHS PO Last administered on 04/12/18at 20:34; Start 04/11/18 at 21:00; Stop 04/13/18 at 21:01 Quetiapine Fumarate (SEROquel) 37.5 mg TIDWMEALS PO Last administered on at 17:18; Start 04/11/18 at 17:00 Alprazolam (Xanax) 0.25 mg HS PO ; Start 04/14/18 at 21:00 Active Scripts Active Reported Fentanyl 1 Each Patch.td72 37.5 Mcg TD Q3DAYS Ondansetron Hcl 4 Mg Tablet 4 Mg PO PRN Q8HRS PRN Xanax (Alprazolam) 0.5 Mg Tablet 0.5 Mg PO TID Throat Drops (Pectin) 2.8 Mg Lozenge 1 Unit PO PRN Q3HRS PRN Simvastatin 40 Mg Tablet 40 Mg PO HS Reglan (Metoclopramide Hcl) 5 Mg Tablet 5 Mg PO DAILY Reglan (Metoclopramide Hcl) 5 Mg Tablet 5 Mg PO PRN Q6HRS PRN Refresh Optive Eye Drops (Carboxymethylcellulos/Glycerin) 15 Ml Drops 1 Drop EACHEYE QID Oyster Shell 500 Mg + Vit D Tb (Calcium Carbonate/Vitamin D3) 1 Each Tablet 1 Tab PO BID Oxycodone Hcl 5 Mg Capsule 5 Mg PO PRN Q6HRS PRN Oxybutynin Chloride Er (Oxybutynin Chloride) 10 Mg Tab.er.24 10 Mg PO DAILY Omeprazole 40 Mg Capsule.dr 40 Mg PO HS Maalox Advanced Suspension (Mag Hydrox/Aluminum Hyd/Simeth) 355 Ml Oral.susp 30 Ml PO PRN Q6HRS PRN Melatonin 5 Mg Tablet (Melatonin/Pyridoxine) 1 Each Tablet 5 Mg PO PRN QHS PRN Lisinopril 10 Mg Tablet 10 Mg PO DAILY Lactase 3,000 Unit Tablet 3 Tab PO TIDWMEALS Imodium A-D (Loperamide HCl) 2 Mg Capsule 2 Mg PO PRN Q4HRS PRN Guaifenesin 100 Mg/5 Ml Liquid 15 Ml PO PRN Q6HRS PRN Famotidine 20 Mg Tablet 20 Mg PO DAILY Dicyclomine Hcl 20 Mg Tablet 20 Mg PO QID Cymbalta (Duloxetine Hcl) 60 Mg Capsule.dr 60 Mg PO DAILY Cyclobenzaprine Hcl 5 Mg Tablet 5 Mg PO PRN Q8HRS PRN Vitamin B-12 (Cyanocobalamin (Vitamin B-12)) 1,000 Mcg Tablet 1,000 Mcg PO DAILY Colace (Docusate Sodium) 100 Mg Capsule 100 Mg PO PRN DAILY PRN Peridex (Chlorhexidine Gluconate) 15 Ml Mouthwash 15 Ml PO BID Carvedilol 6.25 Mg Tablet 6.25 Mg PO BIDWMEALS Bisacodyl 10 Mg Supp.rect 10 Mg RC PRN DAILY PRN Biofreeze (Menthol) 118 Ml Gel..ml. 1 Bushra TP PRN Q6HRS PRN Aquaphor Ointment (Mineral Oil/Hydrophil Petrolat) 396 Gm Oint...g. 1 Bushra TP HS Albuterol Sulfate Neb Soln (Albuterol Sulfate) 2.5 Mg/3 Ml Vial.neb 3 Ml NEB PRN Q6HRS PRN I have reviewed the current psychotropics carefully including drug interactions. Risk benefit ratio favors no change other than as noted in my dictated progress note. Diagnosis: Problems: (1) Mental status alteration (2) Anxiety disorder (3) Bipolar affective disorder, mixed (4) Dementia in Alzheimer's disease with depression (5) Dementia in Alzheimer's disease with delusions (6) Dementia, vascular, with delusions (7) Dementia, vascular, with depression (8) Impulse control disorder KALIE RODRÍGUEZ MD Apr 12, 2018 23:09
--- NOTE | 2018-04-13 01:54 | PN ---
DATE: 04/11/2018 PSYCHIATRIC PROGRESS NOTE This is a late entry for 04/11/2018, covers elements not covered in my initial note of 04/11/2018. SUBJECTIVE: I met with the patient in the evening. The patient was staffed at a treatment team meeting with the entire team in the morning. She slept 8 hours previous evening. Reviewed her history, diagnosis, progress, discharge plans and current psychotropics at length with treatment team meeting. She often appears helpless and withdrawn. Per nursing report, compliant with medications. We are waiting for the past psychiatric records regarding her diagnosis of bipolar disorder. REVIEW OF SYSTEMS: Has vague somatic symptoms and chest and GI symptoms, but less preoccupied with this. Ambulation impaired. No CV, , eye, ENT system symptoms on review other than above. MENTAL STATUS EXAM: Oriented to herself and situation. Speech coherent, less pressured. Abstraction fair, computation impaired, language function intact. Mood and affect still somewhat anxious, labile, but improved. LABORATORY DATA: Reviewed. IMPRESSION: Unchanged from initial note. PLAN: We will increase the Seroquel from 25 mg twice a day to 37.5 mg 3 times a day as we taper and stop the Xanax. Continue Cymbalta 60 mg a day, melatonin 6 mg at bedtime p.r.n., hydroxyzine p.r.n. On further review Seroquel in fact is 25 mg 3 times a day and we are increasing it to 37.5 mg 3 times a day. KALIE RODRÍGUEZ MD DR: SHIRA/tessie JOB#: [id number] / [id number]
[2018-04-13 06:28] VITALS: BP 102/51
[2018-04-13] MEDS: CHLORHEXIDINE 0.12% 15 ML MOUTHWASH. SWSP SCH ×2 (07:57→20:13)
[2018-04-13] MEDS: DICYCLOMINE HCL 20 MG TABLET PO SCH ×4 (07:58→20:13)
[2018-04-13] MEDS: QUEtiapine 25 MG TABLET. PO SCH ×3 (07:58→17:16)
[2018-04-13] MEDS: ALPRAZolam 0.25 MG TABLET PO SCH ×2 (07:59→13:19)
[2018-04-13] MEDS: LACTOBACILLUS RHAMNOSUS GG 1 CAPSULE. PO SCH ×2 (07:59→20:13)
[2018-04-13] MEDS: LACTASE 3,000 UNIT TABLET PO SCH ×3 (07:59→17:15)
[2018-04-13] MEDS: OXYBUTYNIN CHLORIDE 5 MG TABLET PO SCH ×2 (08:00→20:13)
[2018-04-13] MEDS: DULoxetine HCL 60 MG CAPSULE.DR PO SCH (08:00)
[2018-04-13] MEDS: METOCLOPRAMIDE 5 MG TABLET PO SCH (08:00)
[2018-04-13] MEDS: POLYVINYL ALCOHOL 1.4% OPHTH SOLUTION 15ML BOTTLE. OU SCH ×4 (08:00→20:13)
[2018-04-13] MEDS: CALCIUM CARB/VIT D3 500/200 TABLET PO SCH ×2 (08:00→17:16)
[2018-04-13] MEDS: FAMOTIDINE 20 MG TABLET PO SCH ×2 (08:00→20:13)
[2018-04-13] MEDS: CARVEDILOL 6.25 MG TABLET PO SCH ×2 (08:00→17:15)
[2018-04-13] MEDS: LISINOPRIL 10 MG TABLET PO SCH (09:00)
[2018-04-13] MEDS: ONDANSETRON ODT 4 MG TAB.RAPDIS PO PRN (09:30)
[2018-04-13] MEDS: hydrOXYzine HCL 25 MG TABLET PO PRN (13:18)
[2018-04-13 16:24] VITALS: BP 138/71
[2018-04-13] MEDS: SIMVASTATIN 40 MG TABLET. PO SCH (20:13)
[2018-04-13] MEDS: MINERAL OIL/PETROLATUM TOPICAL CREAM 113GM JAR. TP SCH (20:13)
[2018-04-13] MEDS: ALPRAZolam 0.5 MG TABLET PO SCH (20:14)
--- NOTE | 2018-04-13 22:41 | PDOC ---
Exam Note: Johnny Note: Please also refer to the separate dictated note~for this date of service dictated separately.~Patient seen individually. Discussed the patient with Nursing staff reviewed the chart.~Reviewed interim history and current functioning. Reviewed vital signs,~Labs/ Radiology~and current medications noted below. Continue current treatment with the changes noted in the dictated addendum note Assessment: Vital Signs: Vital Signs Date Time Temp Pulse Resp B/P (MAP) Pulse Ox O2 Delivery O2 Flow Rate FiO2 04/13/18 17:15 105 138/71 04/13/18 16:24 98.7 20 99 Room Air 04/10/18 06:24 2.0 I&O Intake and Output 04/13/18 06:59 Intake Total 845 ml Balance 845 ml Intake Oral 845 ml Current Medications: Meds: Current Medications Acetaminophen (Tylenol) 650 mg PRN Q6HRS PRN PO PAIN / TEMP Last administered on 04/02/18 11:45; Start 04/01/18 at 23:00 Multi-Ingredient Ointment (Analgesic [place]) 1 bushra PRN QID PRN TP MUSCLE PAIN; Start 04/01/18 at 23:00 Al Hydroxide/Mg Hydroxide (Mylanta Plus Xs) 15 ml PRN AFTMEALHC PRN PO DYSPEPSIA Last administered on 04/02/18 12:27; Start 04/01/18 at 23:00 Magnesium Hydroxide (Milk Of Magnesia) 2,400 mg PRN QHS PRN PO CONSTIPATION Last administered on 04/10/18 09:26; Start 04/01/18 at 23:00 Alprazolam (Xanax) 0.5 mg TID PO Last administered on 04/05/18 13:43; Start at 09:00; Stop 04/05/18 at 18:13; Status DC Duloxetine HCl (Cymbalta) 60 mg DAILY PO Last administered on 04/13/18 08:00; Start 04/02/18 at 09:00 Melatonin 6 mg PRN QHS PRN PO INSOMNIA Last administered on 04/04/18 20:48; Start 04/01/18 at 23:45 Albuterol Sulfate (Ventolin) 2.5 mg PRN Q6HRS PRN NEB SHORTNESS OF BREATH Last administered on 04/12/18 15:23; Start 04/01/18 at 23:30 Chlorhexidine Gluconate (Peridex) 15 ml BID SWSP Last administered on 04/13/18 20:13; Start 04/02/18 at 09:00 Cyanocobalamin (Vitamin B-12) 1,000 mcg DAILY PO Last administered on 08:51; Start 04/02/18 at 09:00; Status Future Hold Guaifenesin (Robitussin) 300 mg PRN Q6HRS PRN PO COUGH; Start 04/01/18 at 23:30 Lisinopril (Prinivil) 10 mg DAILY PO Last administered on 04/12/18 08:10; Start 04/02/18 at 09:00 Simvastatin (Zocor) 40 mg HS PO Last administered on 04/13/18 20:13; Start at 21:00 Bisacodyl (Dulcolax Supp) 10 mg PRN DAILY PRN [place] CONSTIPATION; Start 04/01/18 at 23:45 Calcium/Vitamin D (Oscal D 500mg/ 200uts) 1 tab BIDWMEALS PO Last administered on 04/13/18 17:16; Start 04/02/18 at 08:00 Artificial Tears (Artificial Tears) 1 drop QID OU Last administered on 20:13; Start 04/02/18 at 09:00 Carvedilol (Coreg) 6.25 mg BIDWMEALS PO Last administered on 04/13/18 17:15; Start 04/02/18 at 08:00 Cyclobenzaprine HCl (Flexeril) 5 mg PRN Q8HRS PRN PO MUSCLE SPASMS Last administered on 04/04/18at 11:54; Start 04/01/18 at 23:45 Dicyclomine HCl (Bentyl) 20 mg QID PO Last administered on 04/13/18 20:13; Start 04/02/18 at 09:00 Docusate Sodium (Colace) 100 mg PRN DAILY PRN PO CONSTIPATION; Start 04/01/18 at 23:45 Famotidine (Pepcid) 20 mg DAILY PO ; Start 04/02/18 at 09:00; Stop 04/02/18 at 09:00; Status DC Fentanyl (Duragesic 12mcg/ Hr) 1 patch Q3DAYS TD ; Start 04/04/18 at 09:00; Stop 04/04/18 at 09:00; Status DC Lactase (Lactaid) 9,000 unit TIDWMEALS PO Last administered on 04/13/18 17:15; Start 04/02/18 at 08:00 Loperamide HCl (Imodium) 2 mg PRN Q4HRS PRN PO DIARRHEA; Start 04/01/18 at 23: 45 Non-Formulary Medication (Mag Hydrox/ Aluminum Hyd/ Simeth (Maalox Advanced Suspension)) 30 ml PRN Q6HRS PRN PO DYSPEPSIA; Start 04/01/18 at 23:30; Status UNV Non-Formulary Medication (Menthol (Biofreeze)) 1 bushra PRN Q6HRS PRN TP PAIN; Start 04/01/18 at 23:30; Status UNV Metoclopramide HCl (Reglan) 5 mg DAILY PO Last administered on 04/13/18 08:00; Start 04/02/18 at 09:00 Metoclopramide HCl (Reglan) 5 mg PRN Q6HRS PRN PO NAUSEA/VOMITING Last administered on 04/04/18 15:13; Start 04/01/18 at 23:45 Multi-Ingred Cream/Lotion/Oil/ Oint (Hydrocerin) 1 bushra QHS TP Last administered on 04/13/18 20:13; Start 04/02/18 at 21:00 Pantoprazole Sodium (Protonix) 40 mg QHS PO ; Start 04/02/18 at 21:00; Stop at 21:00; Status DC Ondansetron HCl (Zofran Odt) 4 mg PRN Q8HRS PRN PO NAUSEA/VOMITING Last administered on 04/13/18 09:30; Start 04/01/18 at 23:45 Oxybutynin Chloride (Ditropan) 5 mg BID PO Last administered on 04/13/18 20:13 ; Start 04/02/18 at 09:00 Oxycodone HCl (Roxicodone) 5 mg PRN Q6HRS PRN PO PAIN Last administered on 18:16; Start 04/01/18 at 23:45 Throat Lozenges (Cepacol Sore Throat Lozenge) 1 bela PRN Q2HR PRN PO SORE THROAT ; Start 04/01/18 at 23:45 Fentanyl (Duragesic 25mcg/ Hr) 1 patch Q3DAYS TD ; Start 04/04/18 at 09:00; Stop 04/04/18 at 09:00; Status DC Info (Do NOT chart on this placeholder) 1 each 1X ONCE MC Last administered on 04/02/18at 00:00; Start 04/02/18 at 00:00; Stop 04/02/18 at 00:01; Status DC Famotidine (Pepcid) 20 mg BID PO Last administered on 04/13/18at 20:13; Start at 09:00 Fentanyl (Duragesic 12mcg/ Hr) 1 patch Q3DAYS TD Last administered on 04/11/18at 08:43; Start 04/02/18 at 14:00 Fentanyl (Duragesic 25mcg/ Hr) 1 patch Q3DAYS TD Last administered on 04/11/18at 08:43; Start 04/02/18 at 14:00 Hydroxyzine HCl (Atarax) 25 mg PRN Q2HR PRN PO ANXIETY Last administered on 04/13at 13:18; Start 04/03/18 at 18:30 Quetiapine Fumarate (SEROquel) 12.5 mg 0900,1300,1700 PO Last administered on at 18:39; Start 04/04/18 at 09:00; Stop 04/06/18 at 18:51; Status DC Ertapenem 1 gm/ Sodium Chloride 50 ml @ 100 mls/hr DAILY IV ; Start 04/11/18 at 09:00; Stop 04/11/18 at 09:00; Status DC Cefepime HCl (Maxipime) 1 gm Q24H IM Last administered on 04/12/18at 14:11; Start 04/05/18 at 13:30; Stop 04/12/18 at 13:31; Status DC Alprazolam (Xanax) 0.5 mg BID PO Last administered on 04/11/18 08:43; Start at 21:00; Stop 04/11/18 at 15:49; Status DC Alprazolam (Xanax) 0.25 mg DAILY@1400 PO Last administered on 04/11/18 14:45; Start 04/06/18 at 14:00; Stop 04/11/18 at 15:49; Status DC Lactobacillus Rhamnosus (Culturelle) 1 cap BID PO Last administered on at 20:13; Start 04/06/18 at 21:00 Quetiapine Fumarate (SEROquel) 25 mg BIDWMEALS PO Last administered on at 08:40; Start 04/07/18 at 08:00; Stop 04/11/18 at 15:49; Status DC Quetiapine Fumarate (SEROquel) 12.5 mg DAILYWLUN PO Last administered on at 12:30; Start 04/07/18 at 12:00; Stop 04/08/18 at 18:27; Status DC Quetiapine Fumarate (SEROquel) 25 mg DAILYWLUN PO Last administered on at 14:45; Start 04/09/18 at 12:00; Stop 04/11/18 at 15:49; Status DC Alprazolam (Xanax) 0.25 mg BID@0900,1400 PO Last administered on 04/13/18 13:19 ; Start 04/12/18 at 09:00 Alprazolam (Xanax) 0.5 mg QHS PO Last administered on 04/13/18at 20:14; Start 04/11/18 at 21:00; Stop 04/13/18 at 21:01; Status DC Quetiapine Fumarate (SEROquel) 37.5 mg TIDWMEALS PO Last administered on at 17:16; Start 04/11/18 at 17:00 Alprazolam (Xanax) 0.25 mg HS PO ; Start 04/14/18 at 21:00 Active Scripts Active Reported Fentanyl 1 Each Patch.td72 37.5 Mcg TD Q3DAYS Ondansetron Hcl 4 Mg Tablet 4 Mg PO PRN Q8HRS PRN Xanax (Alprazolam) 0.5 Mg Tablet 0.5 Mg PO TID Throat Drops (Pectin) 2.8 Mg Lozenge 1 Unit PO PRN Q3HRS PRN Simvastatin 40 Mg Tablet 40 Mg PO HS Reglan (Metoclopramide Hcl) 5 Mg Tablet 5 Mg PO DAILY Reglan (Metoclopramide Hcl) 5 Mg Tablet 5 Mg PO PRN Q6HRS PRN Refresh Optive Eye Drops (Carboxymethylcellulos/Glycerin) 15 Ml Drops 1 Drop EACHEYE QID Oyster Shell 500 Mg + Vit D Tb (Calcium Carbonate/Vitamin D3) 1 Each Tablet 1 Tab PO BID Oxycodone Hcl 5 Mg Capsule 5 Mg PO PRN Q6HRS PRN Oxybutynin Chloride Er (Oxybutynin Chloride) 10 Mg Tab.er.24 10 Mg PO DAILY Omeprazole 40 Mg Capsule.dr 40 Mg PO HS Maalox Advanced Suspension (Mag Hydrox/Aluminum Hyd/Simeth) 355 Ml Oral.susp 30 Ml PO PRN Q6HRS PRN Melatonin 5 Mg Tablet (Melatonin/Pyridoxine) 1 Each Tablet 5 Mg PO PRN QHS PRN Lisinopril 10 Mg Tablet 10 Mg PO DAILY Lactase 3,000 Unit Tablet 3 Tab PO TIDWMEALS Imodium A-D (Loperamide HCl) 2 Mg Capsule 2 Mg PO PRN Q4HRS PRN Guaifenesin 100 Mg/5 Ml Liquid 15 Ml PO PRN Q6HRS PRN Famotidine 20 Mg Tablet 20 Mg PO DAILY Dicyclomine Hcl 20 Mg Tablet 20 Mg PO QID Cymbalta (Duloxetine Hcl) 60 Mg Capsule.dr 60 Mg PO DAILY Cyclobenzaprine Hcl 5 Mg Tablet 5 Mg PO PRN Q8HRS PRN Vitamin B-12 (Cyanocobalamin (Vitamin B-12)) 1,000 Mcg Tablet 1,000 Mcg PO DAILY Colace (Docusate Sodium) 100 Mg Capsule 100 Mg PO PRN DAILY PRN Peridex (Chlorhexidine Gluconate) 15 Ml Mouthwash 15 Ml PO BID Carvedilol 6.25 Mg Tablet 6.25 Mg PO BIDWMEALS Bisacodyl 10 Mg Supp.rect 10 Mg RC PRN DAILY PRN Biofreeze (Menthol) 118 Ml Gel..ml. 1 [place] TP PRN Q6HRS PRN Aquaphor Ointment (Mineral Oil/Hydrophil Petrolat) 396 Gm Oint...g. 1 Bushra TP HS Albuterol Sulfate Neb Soln (Albuterol Sulfate) 2.5 Mg/3 Ml Vial.neb 3 Ml NEB PRN Q6HRS PRN I have reviewed the current psychotropics carefully including drug interactions. Risk benefit ratio favors no change other than as noted in my dictated progress note. Diagnosis: Problems: (1) Mental status alteration (2) Anxiety disorder (3) Bipolar affective disorder, mixed (4) Dementia in Alzheimer's disease with depression (5) Dementia in Alzheimer's disease with delusions (6) Dementia, vascular, with delusions (7) Dementia, vascular, with depression (8) Impulse control disorder KALIE RODRÍGUEZ MD Apr 13, 2018 22:41
[2018-04-14 06:15] VITALS: BP 103/35
[2018-04-14] MEDS: LACTASE 3,000 UNIT TABLET PO SCH ×3 (08:52→17:14)
[2018-04-14] MEDS: QUEtiapine 25 MG TABLET. PO SCH ×3 (08:53→17:15)
[2018-04-14] MEDS: CALCIUM CARB/VIT D3 500/200 TABLET PO SCH ×2 (08:53→17:14)
[2018-04-14] MEDS: DICYCLOMINE HCL 20 MG TABLET PO SCH ×4 (08:55→19:30)
[2018-04-14] MEDS: LACTOBACILLUS RHAMNOSUS GG 1 CAPSULE. PO SCH ×2 (08:55→19:30)
[2018-04-14] MEDS: FAMOTIDINE 20 MG TABLET PO SCH ×2 (08:56→19:30)
[2018-04-14] MEDS: OXYBUTYNIN CHLORIDE 5 MG TABLET PO SCH ×2 (08:56→19:30)
[2018-04-14] MEDS: METOCLOPRAMIDE 5 MG TABLET PO SCH (08:56)
[2018-04-14] MEDS: DULoxetine HCL 60 MG CAPSULE.DR PO SCH (08:56)
[2018-04-14] MEDS: LISINOPRIL 10 MG TABLET PO SCH (09:10)
[2018-04-14] MEDS: CARVEDILOL 6.25 MG TABLET PO SCH ×2 (09:11→17:14)
[2018-04-14] MEDS: POLYVINYL ALCOHOL 1.4% OPHTH SOLUTION 15ML BOTTLE. OU SCH ×4 (12:03→19:31)
[2018-04-14] MEDS: ALPRAZolam 0.25 MG TABLET PO SCH ×3 (12:05→19:31)
[2018-04-14] MEDS: fentaNYL 25MCG/HR 1 PATCH PATCH TD SCH (12:06)
[2018-04-14] MEDS: fentaNYL 12MCG/HR 1 PATCH PATCH TD SCH (12:07)
[2018-04-14] MEDS: CHLORHEXIDINE 0.12% 15 ML MOUTHWASH. SWSP SCH ×2 (12:07→19:30)
[2018-04-14 16:26] VITALS: BP 130/77
[2018-04-14] MEDS: SIMVASTATIN 40 MG TABLET. PO SCH (19:30)
[2018-04-14] MEDS: MINERAL OIL/PETROLATUM TOPICAL CREAM 113GM JAR. TP SCH (19:31)
--- NOTE | 2018-04-14 20:12 | PN ---
DATE: 04/13/2018 This is a late entry, 04/13/2018, covers the elements not covered in my initial note. SUBJECTIVE: I met with the patient in the evening. The patient is less somatically preoccupied. Slept 7-3/4 hours in the morning, was ambulating with a walker, making statements, "I cannot do this." She complained of some nausea, received Xanax, and refused dinner due to nausea. REVIEW OF SYSTEMS: No CV, , pulmonary, eye system symptoms on review. Ambulation impaired, in wheelchair. MENTAL STATUS EXAM: Oriented to herself and situation. Speech coherent, has some latency. Abstraction fair, computation impaired, language function intact. Mood and affect remain somewhat anxious, withdrawn, but improved. LABORATORY DATA: Reviewed. IMPRESSION: Unchanged from initial note. PLAN: Continue psychotropics from my initial note. MAN Ziggy RODRÍGUEZ MD DR: SHIRA/tessie JOB#: [id number] / [id number]
--- NOTE | 2018-04-14 20:13 | PN ---
DATE: 04/12/2018 PSYCHIATRIC PROGRESS NOTE This is a late entry 04/12/2018, covers elements not covered in my initial note. SUBJECTIVE: I met with the patient in the evening. The patient slept 9-1/2 hours previous evening, compliant with medications, less somatically preoccupied, spends much time in her room. Xanax is being tapered. REVIEW OF SYSTEMS: Vague somatic symptoms, impaired ambulation. No CV, , pulmonary, eye, ENT system symptoms on review. Reliability varies. MENTAL STATUS EXAM: Oriented to herself and situation. Speech coherent, has some latency. Abstraction fair, less pressured. Insight showing improvement. No active suicidal or homicidal ideation. Attention span short, language function intact. IMPRESSION: Unchanged from initial note. PLAN: Taper the Xanax. Rest unchanged per initial note. MAN Ziggy RODRÍGUEZ MD DR: SHIRA/tessie JOB#: [id number] / [id number]
--- NOTE | 2018-04-14 20:51 | PDOC ---
Exam Note: Johnny Note: Please also refer to the separate dictated note~for this date of service dictated separately.~Patient seen individually. Discussed the patient with Nursing staff reviewed the chart.~Reviewed interim history and current functioning. Reviewed vital signs,~Labs/ Radiology~and current medications noted below. Continue current treatment with the changes noted in the dictated addendum note Assessment: Vital Signs: Vital Signs Date Time Temp Pulse Resp B/P (MAP) Pulse Ox O2 Delivery O2 Flow Rate FiO2 04/14/18 17:14 92 130/77 04/14/18 16:30 16 Room Air 04/14/18 16:26 97.9 98 04/10/18 06:24 2.0 I&O Intake and Output 04/14/18 06:59 Intake Total 600 ml Balance 600 ml Intake Oral 600 ml Current Medications: Meds: Current Medications Acetaminophen (Tylenol) 650 mg PRN Q6HRS PRN PO PAIN / TEMP Last administered on 04/02/18 11:45; Start 04/01/18 at 23:00 Multi-Ingredient Ointment (Analgesic Max) 1 bushra PRN QID PRN TP MUSCLE PAIN; Start 04/01/18 at 23:00 Al Hydroxide/Mg Hydroxide (Mylanta Plus Xs) 15 ml PRN AFTMEALHC PRN PO DYSPEPSIA Last administered on 04/02/18 12:27; Start 04/01/18 at 23:00 Magnesium Hydroxide (Milk Of Magnesia) 2,400 mg PRN QHS PRN PO CONSTIPATION Last administered on 04/10/18 09:26; Start 04/01/18 at 23:00 Alprazolam (Xanax) 0.5 mg TID PO Last administered on 04/05/18 13:43; Start at 09:00; Stop 04/05/18 at 18:13; Status DC Duloxetine HCl (Cymbalta) 60 mg DAILY PO Last administered on 04/14/18 08:56; Start 04/02/18 at 09:00 Melatonin 6 mg PRN QHS PRN PO INSOMNIA Last administered on 04/04/18 20:48; Start 04/01/18 at 23:45 Albuterol Sulfate (Ventolin) 2.5 mg PRN Q6HRS PRN NEB SHORTNESS OF BREATH Last administered on 04/12/18 15:23; Start 04/01/18 at 23:30 Chlorhexidine Gluconate (Peridex) 15 ml BID SWSP Last administered on 04/14/18 19:30; Start 04/02/18 at 09:00 Cyanocobalamin (Vitamin B-12) 1,000 mcg DAILY PO Last administered on 08:51; Start 04/02/18 at 09:00; Status Future Hold Guaifenesin (Robitussin) 300 mg PRN Q6HRS PRN PO COUGH; Start 04/01/18 at 23:30 Lisinopril (Prinivil) 10 mg DAILY PO Last administered on 04/14/18 09:10; Start 04/02/18 at 09:00 Simvastatin (Zocor) 40 mg HS PO Last administered on 04/14/18 19:30; Start at 21:00 Bisacodyl (Dulcolax Supp) 10 mg PRN DAILY PRN [place] CONSTIPATION; Start 04/01/18 at 23:45 Calcium/Vitamin D (Oscal D 500mg/ 200uts) 1 tab BIDWMEALS PO Last administered on 04/14/18 17:14; Start 04/02/18 at 08:00 Artificial Tears (Artificial Tears) 1 drop QID OU Last administered on 19:31; Start 04/02/18 at 09:00 Carvedilol (Coreg) 6.25 mg BIDWMEALS PO Last administered on 04/14/18 17:14; Start 04/02/18 at 08:00 Cyclobenzaprine HCl (Flexeril) 5 mg PRN Q8HRS PRN PO MUSCLE SPASMS Last administered on 04/04/18 11:54; Start 04/01/18 at 23:45 Dicyclomine HCl (Bentyl) 20 mg QID PO Last administered on 04/14/18 19:30; Start 04/02/18 at 09:00 Docusate Sodium (Colace) 100 mg PRN DAILY PRN PO CONSTIPATION; Start 04/01/18 at 23:45 Famotidine (Pepcid) 20 mg DAILY PO ; Start 04/02/18 at 09:00; Stop 04/02/18 at 09:00; Status DC Fentanyl (Duragesic 12mcg/ Hr) 1 patch Q3DAYS TD ; Start 04/04/18 at 09:00; Stop 04/04/18 at 09:00; Status DC Lactase (Lactaid) 9,000 unit TIDWMEALS PO Last administered on 04/14/18 17:14; Start 04/02/18 at 08:00 Loperamide HCl (Imodium) 2 mg PRN Q4HRS PRN PO DIARRHEA; Start 04/01/18 at 23: 45 Non-Formulary Medication (Mag Hydrox/ Aluminum Hyd/ Simeth (Maalox Advanced Suspension)) 30 ml PRN Q6HRS PRN PO DYSPEPSIA; Start 04/01/18 at 23:30; Status UNV Non-Formulary Medication (Menthol (Biofreeze)) 1 bushra PRN Q6HRS PRN TP PAIN; Start 04/01/18 at 23:30; Status UNV Metoclopramide HCl (Reglan) 5 mg DAILY PO Last administered on 04/14/18 08:56; Start 04/02/18 at 09:00 Metoclopramide HCl (Reglan) 5 mg PRN Q6HRS PRN PO NAUSEA/VOMITING Last administered on 04/04/18 15:13; Start 04/01/18 at 23:45 Multi-Ingred Cream/Lotion/Oil/ Oint (Hydrocerin) 1 bushra QHS TP Last administered on 04/14/18 19:31; Start 04/02/18 at 21:00 Pantoprazole Sodium (Protonix) 40 mg QHS PO ; Start 04/02/18 at 21:00; Stop at 21:00; Status DC Ondansetron HCl (Zofran Odt) 4 mg PRN Q8HRS PRN PO NAUSEA/VOMITING Last administered on 04/13/18 09:30; Start 04/01/18 at 23:45 Oxybutynin Chloride (Ditropan) 5 mg BID PO Last administered on 04/14/18 19:30 ; Start 04/02/18 at 09:00 Oxycodone HCl (Roxicodone) 5 mg PRN Q6HRS PRN PO PAIN Last administered on 18:16; Start 04/01/18 at 23:45 Throat Lozenges (Cepacol Sore Throat Lozenge) 1 bela PRN Q2HR PRN PO SORE THROAT ; Start 04/01/18 at 23:45 Fentanyl (Duragesic 25mcg/ Hr) 1 patch Q3DAYS TD ; Start 04/04/18 at 09:00; Stop 04/04/18 at 09:00; Status DC Info (Do NOT chart on this placeholder) 1 each 1X ONCE MC Last administered on 04/02/18at 00:00; Start 04/02/18 at 00:00; Stop 04/02/18 at 00:01; Status DC Famotidine (Pepcid) 20 mg BID PO Last administered on 04/14/18 19:30; Start at 09:00 Fentanyl (Duragesic 12mcg/ Hr) 1 patch Q3DAYS TD Last administered on 04/14/18at 12:07; Start 04/02/18 at 14:00 Fentanyl (Duragesic 25mcg/ Hr) 1 patch Q3DAYS TD Last administered on 04/14/18at 12:06; Start 04/02/18 at 14:00 Hydroxyzine HCl (Atarax) 25 mg PRN Q2HR PRN PO ANXIETY Last administered on 04/13at 13:18; Start 04/03/18 at 18:30 Quetiapine Fumarate (SEROquel) 12.5 mg 0900,1300,1700 PO Last administered on at 18:39; Start 04/04/18 at 09:00; Stop 04/06/18 at 18:51; Status DC Ertapenem 1 gm/ Sodium Chloride 50 ml @ 100 mls/hr DAILY IV ; Start 04/11/18 at 09:00; Stop 04/11/18 at 09:00; Status DC Cefepime HCl (Maxipime) 1 gm Q24H IM Last administered on 04/12/18at 14:11; Start 04/05/18 at 13:30; Stop 04/12/18 at 13:31; Status DC Alprazolam (Xanax) 0.5 mg BID PO Last administered on 04/11/18at 08:43; Start at 21:00; Stop 04/11/18 at 15:49; Status DC Alprazolam (Xanax) 0.25 mg DAILY@1400 PO Last administered on 04/11/18 14:45; Start 04/06/18 at 14:00; Stop 04/11/18 at 15:49; Status DC Lactobacillus Rhamnosus (Culturelle) 1 cap BID PO Last administered on 19:30; Start 04/06/18 at 21:00 Quetiapine Fumarate (SEROquel) 25 mg BIDWMEALS PO Last administered on at 08:40; Start 04/07/18 at 08:00; Stop 04/11/18 at 15:49; Status DC Quetiapine Fumarate (SEROquel) 12.5 mg DAILYWLUN PO Last administered on at 12:30; Start 04/07/18 at 12:00; Stop 04/08/18 at 18:27; Status DC Quetiapine Fumarate (SEROquel) 25 mg DAILYWLUN PO Last administered on 14:45; Start 04/09/18 at 12:00; Stop 04/11/18 at 15:49; Status DC Alprazolam (Xanax) 0.25 mg BID@0900,1400 PO Last administered on 04/14/18 17:13 ; Start 04/12/18 at 09:00 Alprazolam (Xanax) 0.5 mg QHS PO Last administered on 04/13/18at 20:14; Start 04/11/18 at 21:00; Stop 04/13/18 at 21:01; Status DC Quetiapine Fumarate (SEROquel) 37.5 mg TIDWMEALS PO Last administered on 17:15; Start 04/11/18 at 17:00 Alprazolam (Xanax) 0.25 mg HS PO Last administered on 04/14/18 19:31; Start 04/14/18 at 21:00 Active Scripts Active Reported Fentanyl 1 Each Patch.td72 37.5 Mcg TD Q3DAYS Ondansetron Hcl 4 Mg Tablet 4 Mg PO PRN Q8HRS PRN Xanax (Alprazolam) 0.5 Mg Tablet 0.5 Mg PO TID Throat Drops (Pectin) 2.8 Mg Lozenge 1 Unit PO PRN Q3HRS PRN Simvastatin 40 Mg Tablet 40 Mg PO HS Reglan (Metoclopramide Hcl) 5 Mg Tablet 5 Mg PO DAILY Reglan (Metoclopramide Hcl) 5 Mg Tablet 5 Mg PO PRN Q6HRS PRN Refresh Optive Eye Drops (Carboxymethylcellulos/Glycerin) 15 Ml Drops 1 Drop EACHEYE QID Oyster Shell 500 Mg + Vit D Tb (Calcium Carbonate/Vitamin D3) 1 Each Tablet 1 Tab PO BID Oxycodone Hcl 5 Mg Capsule 5 Mg PO PRN Q6HRS PRN Oxybutynin Chloride Er (Oxybutynin Chloride) 10 Mg Tab.er.24 10 Mg PO DAILY Omeprazole 40 Mg Capsule.dr 40 Mg PO HS Maalox Advanced Suspension (Mag Hydrox/Aluminum Hyd/Simeth) 355 Ml Oral.susp 30 Ml PO PRN Q6HRS PRN Melatonin 5 Mg Tablet (Melatonin/Pyridoxine) 1 Each Tablet 5 Mg PO PRN QHS PRN Lisinopril 10 Mg Tablet 10 Mg PO DAILY Lactase 3,000 Unit Tablet 3 Tab PO TIDWMEALS Imodium A-D (Loperamide HCl) 2 Mg Capsule 2 Mg PO PRN Q4HRS PRN Guaifenesin 100 Mg/5 Ml Liquid 15 Ml PO PRN Q6HRS PRN Famotidine 20 Mg Tablet 20 Mg PO DAILY Dicyclomine Hcl 20 Mg Tablet 20 Mg PO QID Cymbalta (Duloxetine Hcl) 60 Mg Capsule.dr 60 Mg PO DAILY Cyclobenzaprine Hcl 5 Mg Tablet 5 Mg PO PRN Q8HRS PRN Vitamin B-12 (Cyanocobalamin (Vitamin B-12)) 1,000 Mcg Tablet 1,000 Mcg PO DAILY Colace (Docusate Sodium) 100 Mg Capsule 100 Mg PO PRN DAILY PRN Peridex (Chlorhexidine Gluconate) 15 Ml Mouthwash 15 Ml PO BID Carvedilol 6.25 Mg Tablet 6.25 Mg PO BIDWMEALS Bisacodyl 10 Mg Supp.rect 10 Mg RC PRN DAILY PRN Biofreeze (Menthol) 118 Ml Gel..ml. 1 Bushra TP PRN Q6HRS PRN Aquaphor Ointment (Mineral Oil/Hydrophil Petrolat) 396 Gm Oint...g. 1 Bushra TP HS Albuterol Sulfate Neb Soln (Albuterol Sulfate) 2.5 Mg/3 Ml Vial.neb 3 Ml NEB PRN Q6HRS PRN I have reviewed the current psychotropics carefully including drug interactions. Risk benefit ratio favors no change other than as noted in my dictated progress note. Diagnosis: Problems: (1) Mental status alteration (2) Anxiety disorder (3) Bipolar affective disorder, mixed (4) Dementia in Alzheimer's disease with depression (5) Dementia in Alzheimer's disease with delusions (6) Dementia, vascular, with delusions (7) Dementia, vascular, with depression (8) Impulse control disorder KALIE RODRÍGUEZ MD Apr 14, 2018 20:51
[2018-04-15 06:13] VITALS: BP 130/52
[2018-04-15 06:57] LABS: BACTERIA,URINE FEW /HPF (0-FEW); BILIRUBIN,URINE NEG (NEG); CLARITY,URINE CLEAR; COLOR,URINE YELLOW; GLUCOSE,URINE NEG (NEG); NITRITE,URINE NEG (NEG); UROBILINOGEN,URINE 0.2 mg/dL (0.2 mg/dL)
[2018-04-15 06:58] LABS: SQUAMOUS EPITHELIAL CELL,UR FEW /LPF
[2018-04-15] MEDS: CARVEDILOL 6.25 MG TABLET PO SCH ×2 (07:42→16:46)
[2018-04-15] MEDS: CHLORHEXIDINE 0.12% 15 ML MOUTHWASH. SWSP SCH ×2 (07:42→19:49)
[2018-04-15] MEDS: LACTOBACILLUS RHAMNOSUS GG 1 CAPSULE. PO SCH ×2 (07:43→19:49)
[2018-04-15] MEDS: ALPRAZolam 0.25 MG TABLET PO SCH ×3 (07:43→19:49)
[2018-04-15] MEDS: LACTASE 3,000 UNIT TABLET PO SCH ×3 (07:43→16:46)
[2018-04-15] MEDS: METOCLOPRAMIDE 5 MG TABLET PO SCH (07:43)
[2018-04-15] MEDS: CALCIUM CARB/VIT D3 500/200 TABLET PO SCH ×2 (07:44→16:46)
[2018-04-15] MEDS: DICYCLOMINE HCL 20 MG TABLET PO SCH ×4 (07:44→19:49)
[2018-04-15] MEDS: FAMOTIDINE 20 MG TABLET PO SCH ×2 (07:44→19:49)
[2018-04-15] MEDS: LISINOPRIL 10 MG TABLET PO SCH (07:44)
[2018-04-15] MEDS: OXYBUTYNIN CHLORIDE 5 MG TABLET PO SCH ×2 (07:44→19:49)
[2018-04-15] MEDS: DULoxetine HCL 60 MG CAPSULE.DR PO SCH (07:44)
[2018-04-15] MEDS: QUEtiapine 25 MG TABLET. PO SCH ×3 (07:44→16:46)
[2018-04-15] MEDS: POLYVINYL ALCOHOL 1.4% OPHTH SOLUTION 15ML BOTTLE. OU SCH ×4 (07:45→19:50)
[2018-04-15] MEDS: hydrOXYzine HCL 25 MG TABLET PO PRN (16:06)
[2018-04-15 16:12] VITALS: BP 153/54
[2018-04-15] MEDS: SIMVASTATIN 40 MG TABLET. PO SCH (19:49)
[2018-04-15] MEDS: MINERAL OIL/PETROLATUM TOPICAL CREAM 113GM JAR. TP SCH (19:50)
--- NOTE | 2018-04-15 20:08 | PDOC ---
Exam Note: Johnny Note: Please also refer to the separate dictated note~for this date of service dictated separately.~Patient seen individually. Discussed the patient with Nursing staff reviewed the chart.~Reviewed interim history and current functioning. Reviewed vital signs,~Labs/ Radiology~and current medications noted below. Continue current treatment with the changes noted in the dictated addendum note Assessment: Vital Signs: Vital Signs Date Time Temp Pulse Resp B/P (MAP) Pulse Ox O2 Delivery O2 Flow Rate FiO2 04/15/18 16:46 71 153/54 04/15/18 16:12 97.8 18 99 04/14/18 16:30 Room Air 04/10/18 06:24 2.0 I&O Intake and Output 04/15/18 06:59 Intake Total 840 ml Balance 840 ml Intake Oral 840 ml Labs: Laboratory Tests Test 04/15/18 05:35 Urine Collection Type Void Urine Color Yellow Urine Clarity Clear Urine pH 8.0 Urine Specific [place] 1.010 Urine Protein Neg (NEG-TRACE) Urine Glucose (UA) Neg mg/dL (NEG) Urine Ketones (Stick) Neg mg/dL (NEG) Urine Blood Neg (NEG) Urine Nitrite Neg (NEG) Urine Bilirubin Neg (NEG) Urine Urobilinogen Dipstick 0.2 mg/dL (0.2 mg/dL) Urine Leukocyte Esterase Trace (NEG) Urine RBC 1-2 /HPF (0-2) Urine WBC 1-4 /HPF (0-4) Urine Squamous Epithelial Cells Few /LPF Urine Bacteria Few /HPF (0-FEW) Current Medications: Meds: Current Medications Acetaminophen (Tylenol) 650 mg PRN Q6HRS PRN PO PAIN / TEMP Last administered on 04/02/18at 11:45; Start 04/01/18 at 23:00 Multi-Ingredient Ointment (Analgesic Bath) 1 bushra PRN QID PRN TP MUSCLE PAIN; Start 04/01/18 at 23:00 Al Hydroxide/Mg Hydroxide (Mylanta Plus Xs) 15 ml PRN AFTMEALHC PRN PO DYSPEPSIA Last administered on 04/02/18at 12:27; Start 04/01/18 at 23:00 Magnesium Hydroxide (Milk Of Magnesia) 2,400 mg PRN QHS PRN PO CONSTIPATION Last administered on 04/10/18at 09:26; Start 04/01/18 at 23:00 Alprazolam (Xanax) 0.5 mg TID PO Last administered on 04/05/18 13:43; Start at 09:00; Stop 04/05/18 at 18:13; Status DC Duloxetine HCl (Cymbalta) 60 mg DAILY PO Last administered on 04/15/18 07:44; Start 04/02/18 at 09:00 Melatonin 6 mg PRN QHS PRN PO INSOMNIA Last administered on 04/04/18 20:48; Start 04/01/18 at 23:45 Albuterol Sulfate (Ventolin) 2.5 mg PRN Q6HRS PRN NEB SHORTNESS OF BREATH Last administered on 04/12/18 15:23; Start 04/01/18 at 23:30 Chlorhexidine Gluconate (Peridex) 15 ml BID SWSP Last administered on 04/15/18 19:49; Start 04/02/18 at 09:00 Cyanocobalamin (Vitamin B-12) 1,000 mcg DAILY PO Last administered on 08:51; Start 04/02/18 at 09:00; Status Future Hold Guaifenesin (Robitussin) 300 mg PRN Q6HRS PRN PO COUGH; Start 04/01/18 at 23:30 Lisinopril (Prinivil) 10 mg DAILY PO Last administered on 04/14/18 09:10; Start 04/02/18 at 09:00 Simvastatin (Zocor) 40 mg HS PO Last administered on 04/15/18 19:49; Start at 21:00 Bisacodyl (Dulcolax Supp) 10 mg PRN DAILY PRN [place] CONSTIPATION; Start 04/01/18 at 23:45 Calcium/Vitamin D (Oscal D 500mg/ 200uts) 1 tab BIDWMEALS PO Last administered on 04/15/18 16:46; Start 04/02/18 at 08:00 Artificial Tears (Artificial Tears) 1 drop QID OU Last administered on 19:50; Start 04/02/18 at 09:00 Carvedilol (Coreg) 6.25 mg BIDWMEALS PO Last administered on 04/15/18 16:46; Start 04/02/18 at 08:00 Cyclobenzaprine HCl (Flexeril) 5 mg PRN Q8HRS PRN PO MUSCLE SPASMS Last administered on 04/04/18at 11:54; Start 04/01/18 at 23:45 Dicyclomine HCl (Bentyl) 20 mg QID PO Last administered on 04/15/18at 19:49; Start 04/02/18 at 09:00 Docusate Sodium (Colace) 100 mg PRN DAILY PRN PO CONSTIPATION; Start 04/01/18 at 23:45 Famotidine (Pepcid) 20 mg DAILY PO ; Start 04/02/18 at 09:00; Stop 04/02/18 at 09:00; Status DC Fentanyl (Duragesic 12mcg/ Hr) 1 patch Q3DAYS TD ; Start 04/04/18 at 09:00; Stop 04/04/18 at 09:00; Status DC Lactase (Lactaid) 9,000 unit TIDWMEALS PO Last administered on 04/15/18 16:46; Start 04/02/18 at 08:00 Loperamide HCl (Imodium) 2 mg PRN Q4HRS PRN PO DIARRHEA; Start 04/01/18 at 23: 45 Non-Formulary Medication (Mag Hydrox/ Aluminum Hyd/ Simeth (Maalox Advanced Suspension)) 30 ml PRN Q6HRS PRN PO DYSPEPSIA; Start 04/01/18 at 23:30; Status UNV Non-Formulary Medication (Menthol (Biofreeze)) 1 bushra PRN Q6HRS PRN TP PAIN; Start 04/01/18 at 23:30; Status UNV Metoclopramide HCl (Reglan) 5 mg DAILY PO Last administered on 04/15/18at 07:43; Start 04/02/18 at 09:00 Metoclopramide HCl (Reglan) 5 mg PRN Q6HRS PRN PO NAUSEA/VOMITING Last administered on 04/04/18at 15:13; Start 04/01/18 at 23:45 Multi-Ingred Cream/Lotion/Oil/ Oint (Hydrocerin) 1 bushra QHS TP Last administered on 04/15/18at 19:50; Start 04/02/18 at 21:00 Pantoprazole Sodium (Protonix) 40 mg QHS PO ; Start 04/02/18 at 21:00; Stop at 21:00; Status DC Ondansetron HCl (Zofran Odt) 4 mg PRN Q8HRS PRN PO NAUSEA/VOMITING Last administered on 04/13/18 09:30; Start 04/01/18 at 23:45 Oxybutynin Chloride (Ditropan) 5 mg BID PO Last administered on 04/15/18 19:49 ; Start 04/02/18 at 09:00 Oxycodone HCl (Roxicodone) 5 mg PRN Q6HRS PRN PO PAIN Last administered on 18:16; Start 04/01/18 at 23:45 Throat Lozenges (Cepacol Sore Throat Lozenge) 1 bela PRN Q2HR PRN PO SORE THROAT ; Start 04/01/18 at 23:45 Fentanyl (Duragesic 25mcg/ Hr) 1 patch Q3DAYS TD ; Start 04/04/18 at 09:00; Stop 04/04/18 at 09:00; Status DC Info (Do NOT chart on this placeholder) 1 each 1X ONCE MC Last administered on 04/02/18at 00:00; Start 04/02/18 at 00:00; Stop 04/02/18 at 00:01; Status DC Famotidine (Pepcid) 20 mg BID PO Last administered on 04/15/18 19:49; Start at 09:00 Fentanyl (Duragesic 12mcg/ Hr) 1 patch Q3DAYS TD Last administered on 04/14/18 12:07; Start 04/02/18 at 14:00 Fentanyl (Duragesic 25mcg/ Hr) 1 patch Q3DAYS TD Last administered on 04/14/18 12:06; Start 04/02/18 at 14:00 Hydroxyzine HCl (Atarax) 25 mg PRN Q2HR PRN PO ANXIETY Last administered on 04/15 16:06; Start 04/03/18 at 18:30 Quetiapine Fumarate (SEROquel) 12.5 mg 0900,1300,1700 PO Last administered on 18:39; Start 04/04/18 at 09:00; Stop 04/06/18 at 18:51; Status DC Ertapenem 1 gm/ Sodium Chloride 50 ml @ 100 mls/hr DAILY IV ; Start 04/11/18 at 09:00; Stop 04/11/18 at 09:00; Status DC Cefepime HCl (Maxipime) 1 gm Q24H IM Last administered on 04/12/18at 14:11; Start 04/05/18 at 13:30; Stop 04/12/18 at 13:31; Status DC Alprazolam (Xanax) 0.5 mg BID PO Last administered on 04/11/18at 08:43; Start at 21:00; Stop 04/11/18 at 15:49; Status DC Alprazolam (Xanax) 0.25 mg DAILY@1400 PO Last administered on 04/11/18at 14:45; Start 04/06/18 at 14:00; Stop 04/11/18 at 15:49; Status DC Lactobacillus Rhamnosus (Culturelle) 1 cap BID PO Last administered on at 19:49; Start 04/06/18 at 21:00 Quetiapine Fumarate (SEROquel) 25 mg BIDWMEALS PO Last administered on at 08:40; Start 04/07/18 at 08:00; Stop 04/11/18 at 15:49; Status DC Quetiapine Fumarate (SEROquel) 12.5 mg DAILYWLUN PO Last administered on at 12:30; Start 04/07/18 at 12:00; Stop 04/08/18 at 18:27; Status DC Quetiapine Fumarate (SEROquel) 25 mg DAILYWLUN PO Last administered on at 14:45; Start 04/09/18 at 12:00; Stop 04/11/18 at 15:49; Status DC Alprazolam (Xanax) 0.25 mg BID@0900,1400 PO Last administered on 04/15/18at 13:38 ; Start 04/12/18 at 09:00 Alprazolam (Xanax) 0.5 mg QHS PO Last administered on 04/13/18at 20:14; Start 04/11/18 at 21:00; Stop 04/13/18 at 21:01; Status DC Quetiapine Fumarate (SEROquel) 37.5 mg TIDWMEALS PO Last administered on at 16:46; Start 04/11/18 at 17:00 Alprazolam (Xanax) 0.25 mg HS PO Last administered on 04/15/18at 19:49; Start 04/14/18 at 21:00 Active Scripts Active Reported Fentanyl 1 Each Patch.td72 37.5 Mcg TD Q3DAYS Ondansetron Hcl 4 Mg Tablet 4 Mg PO PRN Q8HRS PRN Xanax (Alprazolam) 0.5 Mg Tablet 0.5 Mg PO TID Throat Drops (Pectin) 2.8 Mg Lozenge 1 Unit PO PRN Q3HRS PRN Simvastatin 40 Mg Tablet 40 Mg PO HS Reglan (Metoclopramide Hcl) 5 Mg Tablet 5 Mg PO DAILY Reglan (Metoclopramide Hcl) 5 Mg Tablet 5 Mg PO PRN Q6HRS PRN Refresh Optive Eye Drops (Carboxymethylcellulos/Glycerin) 15 Ml Drops 1 Drop EACHEYE QID Oyster Shell 500 Mg + Vit D Tb (Calcium Carbonate/Vitamin D3) 1 Each Tablet 1 Tab PO BID Oxycodone Hcl 5 Mg Capsule 5 Mg PO PRN Q6HRS PRN Oxybutynin Chloride Er (Oxybutynin Chloride) 10 Mg Tab.er.24 10 Mg PO DAILY Omeprazole 40 Mg Capsule.dr 40 Mg PO HS Maalox Advanced Suspension (Mag Hydrox/Aluminum Hyd/Simeth) 355 Ml Oral.susp 30 Ml PO PRN Q6HRS PRN Melatonin 5 Mg Tablet (Melatonin/Pyridoxine) 1 Each Tablet 5 Mg PO PRN QHS PRN Lisinopril 10 Mg Tablet 10 Mg PO DAILY Lactase 3,000 Unit Tablet 3 Tab PO TIDWMEALS Imodium A-D (Loperamide HCl) 2 Mg Capsule 2 Mg PO PRN Q4HRS PRN Guaifenesin 100 Mg/5 Ml Liquid 15 Ml PO PRN Q6HRS PRN Famotidine 20 Mg Tablet 20 Mg PO DAILY Dicyclomine Hcl 20 Mg Tablet 20 Mg PO QID Cymbalta (Duloxetine Hcl) 60 Mg Capsule.dr 60 Mg PO DAILY Cyclobenzaprine Hcl 5 Mg Tablet 5 Mg PO PRN Q8HRS PRN Vitamin B-12 (Cyanocobalamin (Vitamin B-12)) 1,000 Mcg Tablet 1,000 Mcg PO DAILY Colace (Docusate Sodium) 100 Mg Capsule 100 Mg PO PRN DAILY PRN Peridex (Chlorhexidine Gluconate) 15 Ml Mouthwash 15 Ml PO BID Carvedilol 6.25 Mg Tablet 6.25 Mg PO BIDWMEALS Bisacodyl 10 Mg Supp.rect 10 Mg RC PRN DAILY PRN Biofreeze (Menthol) 118 Ml Gel..ml. 1 [place] TP PRN Q6HRS PRN Aquaphor Ointment (Mineral Oil/Hydrophil Petrolat) 396 Gm Oint...g. 1 Bushra TP HS Albuterol Sulfate Neb Soln (Albuterol Sulfate) 2.5 Mg/3 Ml Vial.neb 3 Ml NEB PRN Q6HRS PRN I have reviewed the current psychotropics carefully including drug interactions. Risk benefit ratio favors no change other than as noted in my dictated progress note. Diagnosis: Problems: (1) Mental status alteration (2) Anxiety disorder (3) Bipolar affective disorder, mixed (4) Dementia in Alzheimer's disease with depression (5) Dementia in Alzheimer's disease with delusions (6) Dementia, vascular, with delusions (7) Dementia, vascular, with depression (8) Impulse control disorder KALIE RODRÍGUEZ MD Apr 15, 2018 20:08
--- NOTE | 2018-04-15 23:00 | PN ---
DATE: 04/14/2018 PSYCHIATRIC PROGRESS NOTE This is a late entry for 04/14/2018, covers elements not covered in my initial note of 04/14/2018. SUBJECTIVE: I met with the patient in the evening. The patient slept 8-1/4 hours previous evening, somewhat less withdrawn, spending more time in bed, but less so than before. We will repeat a UA to make sure she does not have an UTI accounting for the symptoms, but overall for one of the few times she has told me that she was "better" as I questioned her. REVIEW OF SYSTEMS: Ambulation impaired. No CV, , pulmonary, eye system symptoms on review. MENTAL STATUS EXAM: Oriented to herself and situation. Speech is coherent, has some latency. Abstraction fair, computation impaired, language function intact, attention span short. Mood and affect somewhat withdrawn. LABORATORY DATA: Reviewed. IMPRESSION: Unchanged from initial note. No change from a psychiatric standpoint from initial note. KALIE RODRÍGUEZ MD DR: SHIRA/tessie JOB#: [id number] / [id number]
[2018-04-16 06:19] VITALS: BP 137/49
[2018-04-16] MEDS: LACTASE 3,000 UNIT TABLET PO SCH ×3 (08:09→17:27)
[2018-04-16] MEDS: LACTOBACILLUS RHAMNOSUS GG 1 CAPSULE. PO SCH ×2 (08:09→20:34)
[2018-04-16] MEDS: DULoxetine HCL 60 MG CAPSULE.DR PO SCH (08:09)
[2018-04-16] MEDS: DICYCLOMINE HCL 20 MG TABLET PO SCH ×4 (08:10→20:33)
[2018-04-16] MEDS: CALCIUM CARB/VIT D3 500/200 TABLET PO SCH ×2 (08:10→17:26)
[2018-04-16] MEDS: METOCLOPRAMIDE 5 MG TABLET PO SCH (08:10)
[2018-04-16] MEDS: OXYBUTYNIN CHLORIDE 5 MG TABLET PO SCH ×3 (08:10→20:34)
[2018-04-16] MEDS: QUEtiapine 25 MG TABLET. PO SCH ×3 (08:10→17:26)
[2018-04-16] MEDS: CARVEDILOL 6.25 MG TABLET PO SCH ×2 (08:11→17:25)
[2018-04-16] MEDS: FAMOTIDINE 20 MG TABLET PO SCH ×2 (08:11→20:34)
[2018-04-16] MEDS: LISINOPRIL 10 MG TABLET PO SCH (08:12)
[2018-04-16] MEDS: CHLORHEXIDINE 0.12% 15 ML MOUTHWASH. SWSP SCH ×2 (08:12→20:33)
[2018-04-16] MEDS: POLYVINYL ALCOHOL 1.4% OPHTH SOLUTION 15ML BOTTLE. OU SCH ×4 (08:14→20:50)
[2018-04-16] MEDS: ALPRAZolam 0.25 MG TABLET PO SCH ×3 (08:14→20:37)
[2018-04-16 16:22] VITALS: BP 143/84
[2018-04-16] MEDS: SIMVASTATIN 40 MG TABLET. PO SCH (20:33)
[2018-04-16] MEDS: MINERAL OIL/PETROLATUM TOPICAL CREAM 113GM JAR. TP SCH (20:37)
--- NOTE | 2018-04-16 21:48 | PDOC ---
Exam Note: Johnny Note: Please also refer to the separate dictated note~for this date of service dictated separately.~Patient seen individually. Discussed the patient with Nursing staff reviewed the chart.~Reviewed interim history and current functioning. Reviewed vital signs,~Labs/ Radiology~and current medications noted below. Continue current treatment with the changes noted in the dictated addendum note Assessment: Vital Signs: Vital Signs Date Time Temp Pulse Resp B/P (MAP) Pulse Ox O2 Delivery O2 Flow Rate FiO2 04/16/18 17:25 80 143/84 04/16/18 16:22 97.9 20 99 Room Air I&O Intake and Output 04/16/18 07:00 Intake Total 720 ml Balance 720 ml Intake Oral 720 ml Current Medications: Meds: Current Medications Acetaminophen (Tylenol) 650 mg PRN Q6HRS PRN PO PAIN / TEMP Last administered on 04/02/18 11:45; Start 04/01/18 at 23:00 Multi-Ingredient Ointment (Analgesic [place]) 1 bushra PRN QID PRN TP MUSCLE PAIN; Start 04/01/18 at 23:00 Al Hydroxide/Mg Hydroxide (Mylanta Plus Xs) 15 ml PRN AFTMEALHC PRN PO DYSPEPSIA Last administered on 04/02/18 12:27; Start 04/01/18 at 23:00 Magnesium Hydroxide (Milk Of Magnesia) 2,400 mg PRN QHS PRN PO CONSTIPATION Last administered on 04/10/18 09:26; Start 04/01/18 at 23:00 Alprazolam (Xanax) 0.5 mg TID PO Last administered on 04/05/18at 13:43; Start at 09:00; Stop 04/05/18 at 18:13; Status DC Duloxetine HCl (Cymbalta) 60 mg DAILY PO Last administered on 04/16/18 08:09; Start 04/02/18 at 09:00 Melatonin 6 mg PRN QHS PRN PO INSOMNIA Last administered on 04/04/18at 20:48; Start 04/01/18 at 23:45 Albuterol Sulfate (Ventolin) 2.5 mg PRN Q6HRS PRN NEB SHORTNESS OF BREATH Last administered on 04/12/18at 15:23; Start 04/01/18 at 23:30 Chlorhexidine Gluconate (Peridex) 15 ml BID SWSP Last administered on 20:33; Start 04/02/18 at 09:00 Cyanocobalamin (Vitamin B-12) 1,000 mcg DAILY PO Last administered on 08:51; Start 04/02/18 at 09:00; Status Future Hold Guaifenesin (Robitussin) 300 mg PRN Q6HRS PRN PO COUGH; Start 04/01/18 at 23:30 Lisinopril (Prinivil) 10 mg DAILY PO Last administered on 04/16/18 08:12; Start 04/02/18 at 09:00 Simvastatin (Zocor) 40 mg HS PO Last administered on 04/16/18 20:33; Start at 21:00 Bisacodyl (Dulcolax Supp) 10 mg PRN DAILY PRN [place] CONSTIPATION; Start 04/01/18 at 23:45 Calcium/Vitamin D (Oscal D 500mg/ 200uts) 1 tab BIDWMEALS PO Last administered on 04/16/18 17:26; Start 04/02/18 at 08:00 Artificial Tears (Artificial Tears) 1 drop QID OU Last administered on 20:50; Start 04/02/18 at 09:00 Carvedilol (Coreg) 6.25 mg BIDWMEALS PO Last administered on 04/16/18 17:25; Start 04/02/18 at 08:00 Cyclobenzaprine HCl (Flexeril) 5 mg PRN Q8HRS PRN PO MUSCLE SPASMS Last administered on 04/04/18at 11:54; Start 04/01/18 at 23:45 Dicyclomine HCl (Bentyl) 20 mg QID PO Last administered on 04/16/18 20:33; Start 04/02/18 at 09:00 Docusate Sodium (Colace) 100 mg PRN DAILY PRN PO CONSTIPATION; Start 04/01/18 at 23:45 Famotidine (Pepcid) 20 mg DAILY PO ; Start 04/02/18 at 09:00; Stop 04/02/18 at 09:00; Status DC Fentanyl (Duragesic 12mcg/ Hr) 1 patch Q3DAYS TD ; Start 04/04/18 at 09:00; Stop 04/04/18 at 09:00; Status DC Lactase (Lactaid) 9,000 unit TIDWMEALS PO Last administered on 04/16/18 17:27 ; Start 04/02/18 at 08:00 Loperamide HCl (Imodium) 2 mg PRN Q4HRS PRN PO DIARRHEA; Start 04/01/18 at 23: 45 Non-Formulary Medication (Mag Hydrox/ Aluminum Hyd/ Simeth (Maalox Advanced Suspension)) 30 ml PRN Q6HRS PRN PO DYSPEPSIA; Start 04/01/18 at 23:30; Status UNV Non-Formulary Medication (Menthol (Biofreeze)) 1 bushra PRN Q6HRS PRN TP PAIN; Start 04/01/18 at 23:30; Status UNV Metoclopramide HCl (Reglan) 5 mg DAILY PO Last administered on 04/16/18 08:10 ; Start 04/02/18 at 09:00 Metoclopramide HCl (Reglan) 5 mg PRN Q6HRS PRN PO NAUSEA/VOMITING Last administered on 04/04/18at 15:13; Start 04/01/18 at 23:45 Multi-Ingred Cream/Lotion/Oil/ Oint (Hydrocerin) 1 bushra QHS TP Last administered on 04/16/18at 20:37; Start 04/02/18 at 21:00 Pantoprazole Sodium (Protonix) 40 mg QHS PO ; Start 04/02/18 at 21:00; Stop at 21:00; Status DC Ondansetron HCl (Zofran Odt) 4 mg PRN Q8HRS PRN PO NAUSEA/VOMITING Last administered on 04/13/18 09:30; Start 04/01/18 at 23:45 Oxybutynin Chloride (Ditropan) 5 mg BID PO Last administered on 04/16/18at 08:10 ; Start 04/02/18 at 09:00; Stop 04/16/18 at 10:17; Status DC Oxycodone HCl (Roxicodone) 5 mg PRN Q6HRS PRN PO PAIN Last administered on at 18:16; Start 04/01/18 at 23:45 Throat Lozenges (Cepacol Sore Throat Lozenge) 1 bela PRN Q2HR PRN PO SORE THROAT ; Start 04/01/18 at 23:45 Fentanyl (Duragesic 25mcg/ Hr) 1 patch Q3DAYS TD ; Start 04/04/18 at 09:00; Stop 04/04/18 at 09:00; Status DC Info (Do NOT chart on this placeholder) 1 each 1X ONCE MC Last administered on 04/02/18at 00:00; Start 04/02/18 at 00:00; Stop 04/02/18 at 00:01; Status DC Famotidine (Pepcid) 20 mg BID PO Last administered on 04/16/18at 20:34; Start at 09:00 Fentanyl (Duragesic 12mcg/ Hr) 1 patch Q3DAYS TD Last administered on 04/14/18at 12:07; Start 04/02/18 at 14:00 Fentanyl (Duragesic 25mcg/ Hr) 1 patch Q3DAYS TD Last administered on 04/14/18at 12:06; Start 04/02/18 at 14:00 Hydroxyzine HCl (Atarax) 25 mg PRN Q2HR PRN PO ANXIETY Last administered on 04/15at 16:06; Start 04/03/18 at 18:30 Quetiapine Fumarate (SEROquel) 12.5 mg 0900,1300,1700 PO Last administered on at 18:39; Start 04/04/18 at 09:00; Stop 04/06/18 at 18:51; Status DC Ertapenem 1 gm/ Sodium Chloride 50 ml @ 100 mls/hr DAILY IV ; Start 04/11/18 at 09:00; Stop 04/11/18 at 09:00; Status DC Cefepime HCl (Maxipime) 1 gm Q24H IM Last administered on 04/12/18at 14:11; Start 04/05/18 at 13:30; Stop 04/12/18 at 13:31; Status DC Alprazolam (Xanax) 0.5 mg BID PO Last administered on 04/11/18at 08:43; Start at 21:00; Stop 04/11/18 at 15:49; Status DC Alprazolam (Xanax) 0.25 mg DAILY@1400 PO Last administered on 04/11/18 14:45; Start 04/06/18 at 14:00; Stop 04/11/18 at 15:49; Status DC Lactobacillus Rhamnosus (Culturelle) 1 cap BID PO Last administered on 20:34; Start 04/06/18 at 21:00 Quetiapine Fumarate (SEROquel) 25 mg BIDWMEALS PO Last administered on 08:40; Start 04/07/18 at 08:00; Stop 04/11/18 at 15:49; Status DC Quetiapine Fumarate (SEROquel) 12.5 mg DAILYWLUN PO Last administered on 12:30; Start 04/07/18 at 12:00; Stop 04/08/18 at 18:27; Status DC Quetiapine Fumarate (SEROquel) 25 mg DAILYWLUN PO Last administered on 14:45; Start 04/09/18 at 12:00; Stop 04/11/18 at 15:49; Status DC Alprazolam (Xanax) 0.25 mg BID@0900,1400 PO Last administered on 04/16/18 13: 43; Start 04/12/18 at 09:00 Alprazolam (Xanax) 0.5 mg QHS PO Last administered on 04/13/18 20:14; Start 04/11/18 at 21:00; Stop 04/13/18 at 21:01; Status DC Quetiapine Fumarate (SEROquel) 37.5 mg TIDWMEALS PO Last administered on 17:26; Start 04/11/18 at 17:00 Alprazolam (Xanax) 0.25 mg HS PO Last administered on 04/16/18 20:37; Start at 21:00 Oxybutynin Chloride (Ditropan) 5 mg TID PO Last administered on 04/16/18 20:34 ; Start 04/16/18 at 14:00 Active Scripts Active Reported Fentanyl 1 Each Patch.td72 37.5 Mcg TD Q3DAYS Ondansetron Hcl 4 Mg Tablet 4 Mg PO PRN Q8HRS PRN Xanax (Alprazolam) 0.5 Mg Tablet 0.5 Mg PO TID Throat Drops (Pectin) 2.8 Mg Lozenge 1 Unit PO PRN Q3HRS PRN Simvastatin 40 Mg Tablet 40 Mg PO HS Reglan (Metoclopramide Hcl) 5 Mg Tablet 5 Mg PO DAILY Reglan (Metoclopramide Hcl) 5 Mg Tablet 5 Mg PO PRN Q6HRS PRN Refresh Optive Eye Drops (Carboxymethylcellulos/Glycerin) 15 Ml Drops 1 Drop EACHEYE QID Oyster Shell 500 Mg + Vit D Tb (Calcium Carbonate/Vitamin D3) 1 Each Tablet 1 Tab PO BID Oxycodone Hcl 5 Mg Capsule 5 Mg PO PRN Q6HRS PRN Oxybutynin Chloride Er (Oxybutynin Chloride) 10 Mg Tab.er.24 10 Mg PO DAILY Omeprazole 40 Mg Capsule.dr 40 Mg PO HS Maalox Advanced Suspension (Mag Hydrox/Aluminum Hyd/Simeth) 355 Ml Oral.susp 30 Ml PO PRN Q6HRS PRN Melatonin 5 Mg Tablet (Melatonin/Pyridoxine) 1 Each Tablet 5 Mg PO PRN QHS PRN Lisinopril 10 Mg Tablet 10 Mg PO DAILY Lactase 3,000 Unit Tablet 3 Tab PO TIDWMEALS Imodium A-D (Loperamide HCl) 2 Mg Capsule 2 Mg PO PRN Q4HRS PRN Guaifenesin 100 Mg/5 Ml Liquid 15 Ml PO PRN Q6HRS PRN Famotidine 20 Mg Tablet 20 Mg PO DAILY Dicyclomine Hcl 20 Mg Tablet 20 Mg PO QID Cymbalta (Duloxetine Hcl) 60 Mg Capsule.dr 60 Mg PO DAILY Cyclobenzaprine Hcl 5 Mg Tablet 5 Mg PO PRN Q8HRS PRN Vitamin B-12 (Cyanocobalamin (Vitamin B-12)) 1,000 Mcg Tablet 1,000 Mcg PO DAILY Colace (Docusate Sodium) 100 Mg Capsule 100 Mg PO PRN DAILY PRN Peridex (Chlorhexidine Gluconate) 15 Ml Mouthwash 15 Ml PO BID Carvedilol 6.25 Mg Tablet 6.25 Mg PO BIDWMEALS Bisacodyl 10 Mg Supp.rect 10 Mg RC PRN DAILY PRN Biofreeze (Menthol) 118 Ml Gel..ml. 1 [place] TP PRN Q6HRS PRN Aquaphor Ointment (Mineral Oil/Hydrophil Petrolat) 396 Gm Oint...g. 1 Bushra TP HS Albuterol Sulfate Neb Soln (Albuterol Sulfate) 2.5 Mg/3 Ml Vial.neb 3 Ml NEB PRN Q6HRS PRN I have reviewed the current psychotropics carefully including drug interactions. Risk benefit ratio favors no change other than as noted in my dictated progress note. 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
--- NOTE | 2018-04-17 01:27 | PN ---
DATE: 04/15/2018 PSYCHIATRIC PROGRESS NOTE This is a late entry for 04/15/2018, covers elements not covered in my initial note of 04/15/2018. SUBJECTIVE: I met with the patient in the evening. The patient slept 7-1/2 hours previous evening. Overall, doing a little bit better. REVIEW OF SYSTEMS: Ambulation impaired, in a wheelchair. No CV, , pulmonary, eye, ENT system symptoms on review, less somatically preoccupied. No complaints of chest pain. MENTAL STATUS EXAM: Oriented to herself and situation. Speech coherent, has some latency, less pressured. Abstraction fair, computation impaired, language function intact, attention span short. Mood and affect showing improvement, less lability is evident. LABORATORY DATA: Reviewed. IMPRESSION: Bipolar 1 disorder, mixed; anxiety disorder, unspecified; cognitive disorder, unspecified. PLAN: Continue psychotropics from initial note. Possible transition back to long-term end of this week. KALIE RODRÍGUEZ MD DR: SHIRA/tessie JOB#: [id number] / [id number]
[2018-04-17 06:17] VITALS: BP 111/50
[2018-04-17 07:08] LABS: BASO # 0.1 x10^3/uL (0.0-0.2); BASO % 1 % (0-3); EOS # 0.2 x10^3/uL (0.0-0.7); EOS % 2 % (0-3); HEMATOCRIT 32.6 % (36.0-47.0); HEMOGLOBIN 11.1 g/dL (12.0-15.5); LYMPH % 29 % (24-48); MEAN CORPUSCULAR HEMOGLOBIN 32 pg (25-35); MEAN CORPUSCULAR HGB CONC 34 g/dL (31-37); MEAN CORPUSCULAR VOLUME 95 fL (79-100); MONO # 0.5 x10^3/uL (0.0-1.1); MONO % 8 % (0-9); NEUT # 4.2 x10^3uL (1.8-7.7); NEUT % 60 % (31-73); PLATELET COUNT 198 x10^3/uL (140-400); RED BLOOD COUNT 3.44 x10^6/uL (3.50-5.40); RED CELL DISTRIBUTION WIDTH 13.8 % (11.5-14.5); WHITE BLOOD COUNT 6.9 x10^3/uL (4.0-11.0)
[2018-04-17 07:16] LABS: ALBUMIN 3.1 g/dL (3.4-5.0); CALCIUM 9.3 mg/dL (8.5-10.1); CREATININE 1.1 mg/dL (0.6-1.0); GFR 48.7; POTASSIUM 4.5 mmol/L (3.5-5.1); TOTAL BILIRUBIN 0.4 mg/dL (0.2-1.0); TOTAL PROTEIN 6.2 g/dL (6.4-8.2)
[2018-04-17] MEDS: CHLORHEXIDINE 0.12% 15 ML MOUTHWASH. SWSP SCH ×2 (09:00→19:54)
[2018-04-17] MEDS: LACTASE 3,000 UNIT TABLET PO SCH ×3 (09:49→17:19)
[2018-04-17] MEDS: DULoxetine HCL 60 MG CAPSULE.DR PO SCH (09:49)
[2018-04-17] MEDS: DICYCLOMINE HCL 20 MG TABLET PO SCH ×4 (09:50→19:54)
[2018-04-17] MEDS: OXYBUTYNIN CHLORIDE 5 MG TABLET PO SCH ×3 (09:50→19:54)
[2018-04-17] MEDS: QUEtiapine 25 MG TABLET. PO SCH ×3 (09:50→17:19)
[2018-04-17] MEDS: METOCLOPRAMIDE 5 MG TABLET PO SCH (09:50)
[2018-04-17] MEDS: CALCIUM CARB/VIT D3 500/200 TABLET PO SCH ×2 (09:53→17:18)
[2018-04-17] MEDS: CARVEDILOL 6.25 MG TABLET PO SCH ×2 (09:53→17:18)
[2018-04-17] MEDS: FAMOTIDINE 20 MG TABLET PO SCH ×2 (09:53→19:54)
[2018-04-17] MEDS: LACTOBACILLUS RHAMNOSUS GG 1 CAPSULE. PO SCH ×2 (09:54→19:54)
[2018-04-17] MEDS: LISINOPRIL 10 MG TABLET PO SCH (09:54)
[2018-04-17] MEDS: POLYVINYL ALCOHOL 1.4% OPHTH SOLUTION 15ML BOTTLE. OU SCH ×4 (09:54→19:56)
[2018-04-17] MEDS: ALPRAZolam 0.25 MG TABLET PO SCH ×3 (09:58→19:56)
[2018-04-17] MEDS: fentaNYL 25MCG/HR 1 PATCH PATCH TD SCH (09:59)
[2018-04-17] MEDS: fentaNYL 12MCG/HR 1 PATCH PATCH TD SCH (09:59)
[2018-04-17] MEDS: CYCLOBENZAPRINE 10 MG TABLET. PO PRN (13:47)
[2018-04-17 16:34] VITALS: BP 103/72
[2018-04-17] MEDS: SIMVASTATIN 40 MG TABLET. PO SCH (19:54)
[2018-04-17] MEDS: MINERAL OIL/PETROLATUM TOPICAL CREAM 113GM JAR. TP SCH (19:56)
--- NOTE | 2018-04-17 21:02 | PDOC ---
Exam Note: Johnny Note: Please also refer to the separate dictated note~for this date of service dictated separately.~Patient seen individually. Discussed the patient with Nursing staff reviewed the chart.~Reviewed interim history and current functioning. Reviewed vital signs,~Labs/ Radiology~and current medications noted below. Continue current treatment with the changes noted in the dictated addendum note Assessment: Vital Signs: Vital Signs Date Time Temp Pulse Resp B/P (MAP) Pulse Ox O2 Delivery O2 Flow Rate FiO2 04/17/18 17:18 78 103/72 04/17/18 16:34 98.2 18 97 04/17/18 14:20 Room Air I&O Intake and Output 04/17/18 06:59 Intake Total 720 ml Balance 720 ml Intake Oral 720 ml Labs: Laboratory Tests Test 04/17/18 06:50 White Blood Count 6.9 x10^3/uL (4.0-11.0) Red Blood Count 3.44 x10^6/uL (3.50-5.40) L Hemoglobin 11.1 g/dL (12.0-15.5) L Hematocrit 32.6 % (36.0-47.0) L Mean Corpuscular Volume 95 fL (79-100) Mean Corpuscular Hemoglobin 32 pg (25-35) Mean Corpuscular Hemoglobin Concent 34 g/dL (31-37) Red Cell Distribution Width 13.8 % (11.5-14.5) Platelet Count 198 x10^3/uL (140-400) Neutrophils (%) (Auto) 60 % (31-73) Lymphocytes (%) (Auto) 29 % (24-48) Monocytes (%) (Auto) 8 % (0-9) Eosinophils (%) (Auto) 2 % (0-3) Basophils (%) (Auto) 1 % (0-3) Neutrophils # (Auto) 4.2 x10^3uL (1.8-7.7) Lymphocytes # (Auto) 2.0 x10^3/uL (1.0-4.8) Monocytes # (Auto) 0.5 x10^3/uL (0.0-1.1) Eosinophils # (Auto) 0.2 x10^3/uL (0.0-0.7) Basophils # (Auto) 0.1 x10^3/uL (0.0-0.2) Sodium Level 143 mmol/L (136-145) Potassium Level 4.5 mmol/L (3.5-5.1) Chloride Level 107 mmol/L (98-107) Carbon Dioxide Level 32 mmol/L (21-32) Anion Gap 4 (6-14) L Blood Urea Nitrogen 17 mg/dL (7-20) Creatinine 1.1 mg/dL (0.6-1.0) H Estimated GFR (Cockcroft-Gault) 48.7 BUN/Creatinine Ratio 15 (6-20) Glucose Level 119 mg/dL (70-99) H Calcium Level 9.3 mg/dL (8.5-10.1) Total Bilirubin 0.4 mg/dL (0.2-1.0) Aspartate Amino Transferase (AST) 17 U/L (15-37) Alanine Aminotransferase (ALT) 9 U/L (14-59) L Alkaline Phosphatase 73 U/L (46-116) Total Protein 6.2 g/dL (6.4-8.2) L Albumin 3.1 g/dL (3.4-5.0) L Albumin/Globulin Ratio 1.0 (1.0-1.7) Current Medications: Meds: Current Medications Acetaminophen (Tylenol) 650 mg PRN Q6HRS PRN PO PAIN / TEMP Last administered on 04/02/18at 11:45; Start 04/01/18 at 23:00 Multi-Ingredient Ointment (Analgesic [place]) 1 bushra PRN QID PRN TP MUSCLE PAIN; Start 04/01/18 at 23:00 Al Hydroxide/Mg Hydroxide (Mylanta Plus Xs) 15 ml PRN AFTMEALHC PRN PO DYSPEPSIA Last administered on 04/02/18at 12:27; Start 04/01/18 at 23:00 Magnesium Hydroxide (Milk Of Magnesia) 2,400 mg PRN QHS PRN PO CONSTIPATION Last administered on 04/10/18at 09:26; Start 04/01/18 at 23:00 Alprazolam (Xanax) 0.5 mg TID PO Last administered on 04/05/18at 13:43; Start at 09:00; Stop 04/05/18 at 18:13; Status DC Duloxetine HCl (Cymbalta) 60 mg DAILY PO Last administered on 04/17/18 09:49; Start 04/02/18 at 09:00 Melatonin 6 mg PRN QHS PRN PO INSOMNIA Last administered on 04/04/18 20:48; Start 04/01/18 at 23:45 Albuterol Sulfate (Ventolin) 2.5 mg PRN Q6HRS PRN NEB SHORTNESS OF BREATH Last administered on 04/12/18 15:23; Start 04/01/18 at 23:30 Chlorhexidine Gluconate (Peridex) 15 ml BID SWSP Last administered on 19:54; Start 04/02/18 at 09:00 Cyanocobalamin (Vitamin B-12) 1,000 mcg DAILY PO Last administered on 08:51; Start 04/02/18 at 09:00; Status Future Hold Guaifenesin (Robitussin) 300 mg PRN Q6HRS PRN PO COUGH; Start 04/01/18 at 23:30 Lisinopril (Prinivil) 10 mg DAILY PO Last administered on 04/17/18 09:54; Start 04/02/18 at 09:00 Simvastatin (Zocor) 40 mg HS PO Last administered on 04/17/18 19:54; Start at 21:00 Bisacodyl (Dulcolax Supp) 10 mg PRN DAILY PRN [place] CONSTIPATION; Start 04/01/18 at 23:45 Calcium/Vitamin D (Oscal D 500mg/ 200uts) 1 tab BIDWMEALS PO Last administered on 04/17/18 17:18; Start 04/02/18 at 08:00 Artificial Tears (Artificial Tears) 1 drop QID OU Last administered on 19:56; Start 04/02/18 at 09:00 Carvedilol (Coreg) 6.25 mg BIDWMEALS PO Last administered on 04/17/18 17:18; Start 04/02/18 at 08:00 Cyclobenzaprine HCl (Flexeril) 5 mg PRN Q8HRS PRN PO MUSCLE SPASMS Last administered on 04/17/18 13:47; Start 04/01/18 at 23:45 Dicyclomine HCl (Bentyl) 20 mg QID PO Last administered on 7/11/18at 19:54; Start 04/02/18 at 09:00 Docusate Sodium (Colace) 100 mg PRN DAILY PRN PO CONSTIPATION; Start 04/01/18 at 23:45 Famotidine (Pepcid) 20 mg DAILY PO ; Start 04/02/18 at 09:00; Stop 04/02/18 at 09:00; Status DC Fentanyl (Duragesic 12mcg/ Hr) 1 patch Q3DAYS TD ; Start 04/04/18 at 09:00; Stop 04/04/18 at 09:00; Status DC Lactase (Lactaid) 9,000 unit TIDWMEALS PO Last administered on 04/17/18at 17:19 ; Start 04/02/18 at 08:00 Loperamide HCl (Imodium) 2 mg PRN Q4HRS PRN PO DIARRHEA; Start 04/01/18 at 23: 45 Non-Formulary Medication (Mag Hydrox/ Aluminum Hyd/ Simeth (Maalox Advanced Suspension)) 30 ml PRN Q6HRS PRN PO DYSPEPSIA; Start 04/01/18 at 23:30; Status UNV Non-Formulary Medication (Menthol (Biofreeze)) 1 bushra PRN Q6HRS PRN TP PAIN; Start 04/01/18 at 23:30; Status UNV Metoclopramide HCl (Reglan) 5 mg DAILY PO Last administered on 04/17/18at 09:50 ; Start 04/02/18 at 09:00 Metoclopramide HCl (Reglan) 5 mg PRN Q6HRS PRN PO NAUSEA/VOMITING Last administered on 04/04/18at 15:13; Start 04/01/18 at 23:45 Multi-Ingred Cream/Lotion/Oil/ Oint (Hydrocerin) 1 bushra QHS TP Last administered on 04/17/18at 19:56; Start 04/02/18 at 21:00 Pantoprazole Sodium (Protonix) 40 mg QHS PO ; Start 04/02/18 at 21:00; Stop at 21:00; Status DC Ondansetron HCl (Zofran Odt) 4 mg PRN Q8HRS PRN PO NAUSEA/VOMITING Last administered on 04/13/18at 09:30; Start 04/01/18 at 23:45 Oxybutynin Chloride (Ditropan) 5 mg BID PO Last administered on 04/16/18at 08:10 ; Start 04/02/18 at 09:00; Stop 04/16/18 at 10:17; Status DC Oxycodone HCl (Roxicodone) 5 mg PRN Q6HRS PRN PO PAIN Last administered on at 18:16; Start 04/01/18 at 23:45 Throat Lozenges (Cepacol Sore Throat Lozenge) 1 bela PRN Q2HR PRN PO SORE THROAT ; Start 04/01/18 at 23:45 Fentanyl (Duragesic 25mcg/ Hr) 1 patch Q3DAYS TD ; Start 04/04/18 at 09:00; Stop 04/04/18 at 09:00; Status DC Info (Do NOT chart on this placeholder) 1 each 1X ONCE MC Last administered on 04/02/18at 00:00; Start 04/02/18 at 00:00; Stop 04/02/18 at 00:01; Status DC Famotidine (Pepcid) 20 mg BID PO Last administered on 04/17/18at 19:54; Start at 09:00 Fentanyl (Duragesic 12mcg/ Hr) 1 patch Q3DAYS TD Last administered on at 09:59; Start 04/02/18 at 14:00 Fentanyl (Duragesic 25mcg/ Hr) 1 patch Q3DAYS TD Last administered on at 09:59; Start 04/02/18 at 14:00 Hydroxyzine HCl (Atarax) 25 mg PRN Q2HR PRN PO ANXIETY Last administered on 04/15at 16:06; Start 04/03/18 at 18:30 Quetiapine Fumarate (SEROquel) 12.5 mg 0900,1300,1700 PO Last administered on at 18:39; Start 04/04/18 at 09:00; Stop 04/06/18 at 18:51; Status DC Ertapenem 1 gm/ Sodium Chloride 50 ml @ 100 mls/hr DAILY IV ; Start 04/11/18 at 09:00; Stop 04/11/18 at 09:00; Status DC Cefepime HCl (Maxipime) 1 gm Q24H IM Last administered on 04/12/18 14:11; Start 04/05/18 at 13:30; Stop 04/12/18 at 13:31; Status DC Alprazolam (Xanax) 0.5 mg BID PO Last administered on 04/11/18at 08:43; Start at 21:00; Stop 04/11/18 at 15:49; Status DC Alprazolam (Xanax) 0.25 mg DAILY@1400 PO Last administered on 04/11/18 14:45; Start 04/06/18 at 14:00; Stop 04/11/18 at 15:49; Status DC Lactobacillus Rhamnosus (Culturelle) 1 cap BID PO Last administered on at 19:54; Start 04/06/18 at 21:00 Quetiapine Fumarate (SEROquel) 25 mg BIDWMEALS PO Last administered on at 08:40; Start 04/07/18 at 08:00; Stop 04/11/18 at 15:49; Status DC Quetiapine Fumarate (SEROquel) 12.5 mg DAILYWLUN PO Last administered on at 12:30; Start 04/07/18 at 12:00; Stop 04/08/18 at 18:27; Status DC Quetiapine Fumarate (SEROquel) 25 mg DAILYWLUN PO Last administered on 14:45; Start 04/09/18 at 12:00; Stop 04/11/18 at 15:49; Status DC Alprazolam (Xanax) 0.25 mg BID@0900,1400 PO Last administered on 04/17/18at 13: 47; Start 04/12/18 at 09:00 Alprazolam (Xanax) 0.5 mg QHS PO Last administered on 04/13/18at 20:14; Start 04/11/18 at 21:00; Stop 04/13/18 at 21:01; Status DC Quetiapine Fumarate (SEROquel) 37.5 mg TIDWMEALS PO Last administered on 17:19; Start 04/11/18 at 17:00 Alprazolam (Xanax) 0.25 mg HS PO Last administered on 7/11/18at 19:56; Start at 21:00 Oxybutynin Chloride (Ditropan) 5 mg TID PO Last administered on 04/17/18at 19:54 ; Start 04/16/18 at 14:00 Active Scripts Active Reported Fentanyl 1 Each Patch.td72 37.5 Mcg TD Q3DAYS Ondansetron Hcl 4 Mg Tablet 4 Mg PO PRN Q8HRS PRN Xanax (Alprazolam) 0.5 Mg Tablet 0.5 Mg PO TID Throat Drops (Pectin) 2.8 Mg Lozenge 1 Unit PO PRN Q3HRS PRN Simvastatin 40 Mg Tablet 40 Mg PO HS Reglan (Metoclopramide Hcl) 5 Mg Tablet 5 Mg PO DAILY Reglan (Metoclopramide Hcl) 5 Mg Tablet 5 Mg PO PRN Q6HRS PRN Refresh Optive Eye Drops (Carboxymethylcellulos/Glycerin) 15 Ml Drops 1 Drop EACHEYE QID Oyster Shell 500 Mg + Vit D Tb (Calcium Carbonate/Vitamin D3) 1 Each Tablet 1 Tab PO BID Oxycodone Hcl 5 Mg Capsule 5 Mg PO PRN Q6HRS PRN Oxybutynin Chloride Er (Oxybutynin Chloride) 10 Mg Tab.er.24 10 Mg PO DAILY Omeprazole 40 Mg Capsule.dr 40 Mg PO HS Maalox Advanced Suspension (Mag Hydrox/Aluminum Hyd/Simeth) 355 Ml Oral.susp 30 Ml PO PRN Q6HRS PRN Melatonin 5 Mg Tablet (Melatonin/Pyridoxine) 1 Each Tablet 5 Mg PO PRN QHS PRN Lisinopril 10 Mg Tablet 10 Mg PO DAILY Lactase 3,000 Unit Tablet 3 Tab PO TIDWMEALS Imodium A-D (Loperamide HCl) 2 Mg Capsule 2 Mg PO PRN Q4HRS PRN Guaifenesin 100 Mg/5 Ml Liquid 15 Ml PO PRN Q6HRS PRN Famotidine 20 Mg Tablet 20 Mg PO DAILY Dicyclomine Hcl 20 Mg Tablet 20 Mg PO QID Cymbalta (Duloxetine Hcl) 60 Mg Capsule.dr 60 Mg PO DAILY Cyclobenzaprine Hcl 5 Mg Tablet 5 Mg PO PRN Q8HRS PRN Vitamin B-12 (Cyanocobalamin (Vitamin B-12)) 1,000 Mcg Tablet 1,000 Mcg PO DAILY Colace (Docusate Sodium) 100 Mg Capsule 100 Mg PO PRN DAILY PRN Peridex (Chlorhexidine Gluconate) 15 Ml Mouthwash 15 Ml PO BID Carvedilol 6.25 Mg Tablet 6.25 Mg PO BIDWMEALS Bisacodyl 10 Mg Supp.rect 10 Mg RC PRN DAILY PRN Biofreeze (Menthol) 118 Ml Gel..ml. 1 Bushra TP PRN Q6HRS PRN Aquaphor Ointment (Mineral Oil/Hydrophil Petrolat) 396 Gm Oint...g. 1 Bushra TP HS Albuterol Sulfate Neb Soln (Albuterol Sulfate) 2.5 Mg/3 Ml Vial.neb 3 Ml NEB PRN Q6HRS PRN I have reviewed the current psychotropics carefully including drug interactions. Risk benefit ratio favors no change other than as noted in my dictated progress note. 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
--- NOTE | 2018-04-17 22:17 | PN ---
DATE: 04/16/2018 PSYCHIATRIC PROGRESS NOTE This is a late entry for 04/16/2018, covers elements not covered in my initial note. SUBJECTIVE: I met with the patient in the evening. The patient slept 9-1/4 hours previous evening. Overall, doing a little better, oriented to herself, place and date. She is complaining of suprapubic pain. Urine has reflex to culture and this could account for part of it. She has been overall less anxious. I met with her in her room. Ambulation impaired with walker. Complains of the suprapubic pain, but less somatically preoccupied beyond this as compared to a few days earlier one of the few times she said, "I feel better overall." REVIEW OF SYSTEMS: No CV, GI system symptoms on review. MENTAL STATUS EXAM: Oriented as above. Speech is coherent, pleasant, smiling. Abstraction fair, computation impaired, language function intact, attention span short. Mood and affect showing improvement. LABORATORY DATA: Reviewed. IMPRESSION: Bipolar 1 disorder, mixed with psychotic features, in partial remission; cognitive disorder, unspecified; anxiety disorder, unspecified. PLAN: Continue psychotropics from initial note. Await urine C and S, treat as clinically appropriate for UTI. KALIE RODRÍGUEZ MD DR: SHIRA/tessie JOB#: [id number] / [id number]
[2018-04-18 06:35] VITALS: BP 129/84
[2018-04-18] MEDS: LISINOPRIL 10 MG TABLET PO SCH (08:18)
[2018-04-18] MEDS: FAMOTIDINE 20 MG TABLET PO SCH ×2 (08:18→21:19)
[2018-04-18] MEDS: CHLORHEXIDINE 0.12% 15 ML MOUTHWASH. SWSP SCH ×2 (08:18→21:18)
[2018-04-18] MEDS: DULoxetine HCL 60 MG CAPSULE.DR PO SCH (08:19)
[2018-04-18] MEDS: LACTOBACILLUS RHAMNOSUS GG 1 CAPSULE. PO SCH ×2 (08:19→21:19)
[2018-04-18] MEDS: QUEtiapine 25 MG TABLET. PO SCH ×3 (08:19→16:23)
[2018-04-18] MEDS: CARVEDILOL 6.25 MG TABLET PO SCH ×2 (08:19→16:22)
[2018-04-18] MEDS: CALCIUM CARB/VIT D3 500/200 TABLET PO SCH ×2 (08:20→16:22)
[2018-04-18] MEDS: LACTASE 3,000 UNIT TABLET PO SCH ×3 (08:20→16:22)
[2018-04-18] MEDS: DICYCLOMINE HCL 20 MG TABLET PO SCH ×4 (08:20→21:19)
[2018-04-18] MEDS: POLYVINYL ALCOHOL 1.4% OPHTH SOLUTION 15ML BOTTLE. OU SCH ×4 (08:20→21:18)
[2018-04-18] MEDS: OXYBUTYNIN CHLORIDE 5 MG TABLET PO SCH ×3 (08:20→21:19)
[2018-04-18] MEDS: METOCLOPRAMIDE 5 MG TABLET PO SCH (08:21)
[2018-04-18] MEDS: ALPRAZolam 0.25 MG TABLET PO SCH ×3 (08:22→21:25)
--- NOTE | 2018-04-18 20:59 | PDOC ---
Exam Note: Johnny Note: Please also refer to the separate dictated note~for this date of service dictated separately.~Patient seen individually. Discussed the patient with Nursing staff reviewed the chart.~Reviewed interim history and current functioning. Reviewed vital signs,~Labs/ Radiology~and current medications noted below. Continue current treatment with the changes noted in the dictated addendum note Assessment: Vital Signs: Vital Signs Date Time Temp Pulse Resp B/P (MAP) Pulse Ox O2 Delivery O2 Flow Rate FiO2 04/18/18 16:22 63 129/84 04/18/18 06:35 98.0 17 99 04/17/18 14:20 Room Air I&O Intake and Output 04/18/18 07:00 Intake Total 240 ml Balance 240 ml Intake Oral 240 ml Current Medications: Meds: Current Medications Acetaminophen (Tylenol) 650 mg PRN Q6HRS PRN PO PAIN / TEMP Last administered on 04/02/18 11:45; Start 04/01/18 at 23:00 Multi-Ingredient Ointment (Analgesic [place]) 1 bushra PRN QID PRN TP MUSCLE PAIN; Start 04/01/18 at 23:00 Al Hydroxide/Mg Hydroxide (Mylanta Plus Xs) 15 ml PRN AFTMEALHC PRN PO DYSPEPSIA Last administered on 04/02/18 12:27; Start 04/01/18 at 23:00 Magnesium Hydroxide (Milk Of Magnesia) 2,400 mg PRN QHS PRN PO CONSTIPATION Last administered on 04/10/18 09:26; Start 04/01/18 at 23:00 Alprazolam (Xanax) 0.5 mg TID PO Last administered on 04/05/18at 13:43; Start at 09:00; Stop 04/05/18 at 18:13; Status DC Duloxetine HCl (Cymbalta) 60 mg DAILY PO Last administered on 04/18/18 08:19; Start 04/02/18 at 09:00 Melatonin 6 mg PRN QHS PRN PO INSOMNIA Last administered on 04/04/18 20:48; Start 04/01/18 at 23:45 Albuterol Sulfate (Ventolin) 2.5 mg PRN Q6HRS PRN NEB SHORTNESS OF BREATH Last administered on 04/12/18at 15:23; Start 04/01/18 at 23:30 Chlorhexidine Gluconate (Peridex) 15 ml BID SWSP Last administered on 08:18; Start 04/02/18 at 09:00 Cyanocobalamin (Vitamin B-12) 1,000 mcg DAILY PO Last administered on at 08:51; Start 04/02/18 at 09:00; Status Future Hold Guaifenesin (Robitussin) 300 mg PRN Q6HRS PRN PO COUGH; Start 04/01/18 at 23:30 Lisinopril (Prinivil) 10 mg DAILY PO Last administered on 04/18/18 08:18; Start 04/02/18 at 09:00 Simvastatin (Zocor) 40 mg HS PO Last administered on 04/17/18 19:54; Start at 21:00 Bisacodyl (Dulcolax Supp) 10 mg PRN DAILY PRN [place] CONSTIPATION Last administered on 04/18/18 18:48; Start 04/01/18 at 23:45 Calcium/Vitamin D (Oscal D 500mg/ 200uts) 1 tab BIDWMEALS PO Last administered on 04/18/18 16:22; Start 04/02/18 at 08:00 Artificial Tears (Artificial Tears) 1 drop QID OU Last administered on 16:23; Start 04/02/18 at 09:00 Carvedilol (Coreg) 6.25 mg BIDWMEALS PO Last administered on 04/18/18 16:22; Start 04/02/18 at 08:00 Cyclobenzaprine HCl (Flexeril) 5 mg PRN Q8HRS PRN PO MUSCLE SPASMS Last administered on 04/17/18 13:47; Start 04/01/18 at 23:45 Dicyclomine HCl (Bentyl) 20 mg QID PO Last administered on 04/18/18 16:23; Start 04/02/18 at 09:00 Docusate Sodium (Colace) 100 mg PRN DAILY PRN PO CONSTIPATION; Start 04/01/18 at 23:45 Famotidine (Pepcid) 20 mg DAILY PO ; Start 04/02/18 at 09:00; Stop 04/02/18 at 09:00; Status DC Fentanyl (Duragesic 12mcg/ Hr) 1 patch Q3DAYS TD ; Start 04/04/18 at 09:00; Stop 04/04/18 at 09:00; Status DC Lactase (Lactaid) 9,000 unit TIDWMEALS PO Last administered on 04/18/18at 16:22 ; Start 04/02/18 at 08:00 Loperamide HCl (Imodium) 2 mg PRN Q4HRS PRN PO DIARRHEA; Start 04/01/18 at 23: 45 Non-Formulary Medication (Mag Hydrox/ Aluminum Hyd/ Simeth (Maalox Advanced Suspension)) 30 ml PRN Q6HRS PRN PO DYSPEPSIA; Start 04/01/18 at 23:30; Status UNV Non-Formulary Medication (Menthol (Biofreeze)) 1 bushra PRN Q6HRS PRN TP PAIN; Start 04/01/18 at 23:30; Status UNV Metoclopramide HCl (Reglan) 5 mg DAILY PO Last administered on 04/18/18at 08:21 ; Start 04/02/18 at 09:00 Metoclopramide HCl (Reglan) 5 mg PRN Q6HRS PRN PO NAUSEA/VOMITING Last administered on 04/04/18at 15:13; Start 04/01/18 at 23:45 Multi-Ingred Cream/Lotion/Oil/ Oint (Hydrocerin) 1 bushra QHS TP Last administered on 04/17/18at 19:56; Start 04/02/18 at 21:00 Pantoprazole Sodium (Protonix) 40 mg QHS PO ; Start 04/02/18 at 21:00; Stop at 21:00; Status DC Ondansetron HCl (Zofran Odt) 4 mg PRN Q8HRS PRN PO NAUSEA/VOMITING Last administered on 04/13/18 09:30; Start 04/01/18 at 23:45 Oxybutynin Chloride (Ditropan) 5 mg BID PO Last administered on 04/16/18at 08:10 ; Start 04/02/18 at 09:00; Stop 04/16/18 at 10:17; Status DC Oxycodone HCl (Roxicodone) 5 mg PRN Q6HRS PRN PO PAIN Last administered on 7/1/ 18at 18:16; Start 04/01/18 at 23:45 Throat Lozenges (Cepacol Sore Throat Lozenge) 1 bela PRN Q2HR PRN PO SORE THROAT ; Start 04/01/18 at 23:45 Fentanyl (Duragesic 25mcg/ Hr) 1 patch Q3DAYS TD ; Start 04/04/18 at 09:00; Stop 04/04/18 at 09:00; Status DC Info (Do NOT chart on this placeholder) 1 each 1X ONCE MC Last administered on 04/02/18at 00:00; Start 04/02/18 at 00:00; Stop 04/02/18 at 00:01; Status DC Famotidine (Pepcid) 20 mg BID PO Last administered on 04/18/18at 08:18; Start at 09:00 Fentanyl (Duragesic 12mcg/ Hr) 1 patch Q3DAYS TD Last administered on at 09:59; Start 04/02/18 at 14:00 Fentanyl (Duragesic 25mcg/ Hr) 1 patch Q3DAYS TD Last administered on at 09:59; Start 04/02/18 at 14:00 Hydroxyzine HCl (Atarax) 25 mg PRN Q2HR PRN PO ANXIETY Last administered on 04/15at 16:06; Start 04/03/18 at 18:30 Quetiapine Fumarate (SEROquel) 12.5 mg 0900,1300,1700 PO Last administered on at 18:39; Start 04/04/18 at 09:00; Stop 04/06/18 at 18:51; Status DC Ertapenem 1 gm/ Sodium Chloride 50 ml @ 100 mls/hr DAILY IV ; Start 04/11/18 at 09:00; Stop 04/11/18 at 09:00; Status DC Cefepime HCl (Maxipime) 1 gm Q24H IM Last administered on 04/12/18at 14:11; Start 04/05/18 at 13:30; Stop 04/12/18 at 13:31; Status DC Alprazolam (Xanax) 0.5 mg BID PO Last administered on 04/11/18at 08:43; Start at 21:00; Stop 04/11/18 at 15:49; Status DC Alprazolam (Xanax) 0.25 mg DAILY@1400 PO Last administered on 04/11/18 14:45; Start 04/06/18 at 14:00; Stop 04/11/18 at 15:49; Status DC Lactobacillus Rhamnosus (Culturelle) 1 cap BID PO Last administered on 08:19; Start 04/06/18 at 21:00 Quetiapine Fumarate (SEROquel) 25 mg BIDWMEALS PO Last administered on at 08:40; Start 04/07/18 at 08:00; Stop 04/11/18 at 15:49; Status DC Quetiapine Fumarate (SEROquel) 12.5 mg DAILYWLUN PO Last administered on 12:30; Start 04/07/18 at 12:00; Stop 04/08/18 at 18:27; Status DC Quetiapine Fumarate (SEROquel) 25 mg DAILYWLUN PO Last administered on 14:45; Start 04/09/18 at 12:00; Stop 04/11/18 at 15:49; Status DC Alprazolam (Xanax) 0.25 mg BID@0900,1400 PO Last administered on 04/18/18 12: 13; Start 04/12/18 at 09:00 Alprazolam (Xanax) 0.5 mg QHS PO Last administered on 04/13/18at 20:14; Start 04/11/18 at 21:00; Stop 04/13/18 at 21:01; Status DC Quetiapine Fumarate (SEROquel) 37.5 mg TIDWMEALS PO Last administered on 16:23; Start 04/11/18 at 17:00 Alprazolam (Xanax) 0.25 mg HS PO Last administered on 04/17/18 19:56; Start at 21:00 Oxybutynin Chloride (Ditropan) 5 mg TID PO Last administered on 04/18/18 12:13 ; Start 04/16/18 at 14:00 Active Scripts Active Reported Fentanyl 1 Each Patch.td72 37.5 Mcg TD Q3DAYS Ondansetron Hcl 4 Mg Tablet 4 Mg PO PRN Q8HRS PRN Xanax (Alprazolam) 0.5 Mg Tablet 0.5 Mg PO TID Throat Drops (Pectin) 2.8 Mg Lozenge 1 Unit PO PRN Q3HRS PRN Simvastatin 40 Mg Tablet 40 Mg PO HS Reglan (Metoclopramide Hcl) 5 Mg Tablet 5 Mg PO DAILY Reglan (Metoclopramide Hcl) 5 Mg Tablet 5 Mg PO PRN Q6HRS PRN Refresh Optive Eye Drops (Carboxymethylcellulos/Glycerin) 15 Ml Drops 1 Drop EACHEYE QID Oyster Shell 500 Mg + Vit D Tb (Calcium Carbonate/Vitamin D3) 1 Each Tablet 1 Tab PO BID Oxycodone Hcl 5 Mg Capsule 5 Mg PO PRN Q6HRS PRN Oxybutynin Chloride Er (Oxybutynin Chloride) 10 Mg Tab.er.24 10 Mg PO DAILY Omeprazole 40 Mg Capsule.dr 40 Mg PO HS Maalox Advanced Suspension (Mag Hydrox/Aluminum Hyd/Simeth) 355 Ml Oral.susp 30 Ml PO PRN Q6HRS PRN Melatonin 5 Mg Tablet (Melatonin/Pyridoxine) 1 Each Tablet 5 Mg PO PRN QHS PRN Lisinopril 10 Mg Tablet 10 Mg PO DAILY Lactase 3,000 Unit Tablet 3 Tab PO TIDWMEALS Imodium A-D (Loperamide HCl) 2 Mg Capsule 2 Mg PO PRN Q4HRS PRN Guaifenesin 100 Mg/5 Ml Liquid 15 Ml PO PRN Q6HRS PRN Famotidine 20 Mg Tablet 20 Mg PO DAILY Dicyclomine Hcl 20 Mg Tablet 20 Mg PO QID Cymbalta (Duloxetine Hcl) 60 Mg Capsule.dr 60 Mg PO DAILY Cyclobenzaprine Hcl 5 Mg Tablet 5 Mg PO PRN Q8HRS PRN Vitamin B-12 (Cyanocobalamin (Vitamin B-12)) 1,000 Mcg Tablet 1,000 Mcg PO DAILY Colace (Docusate Sodium) 100 Mg Capsule 100 Mg PO PRN DAILY PRN Peridex (Chlorhexidine Gluconate) 15 Ml Mouthwash 15 Ml PO BID Carvedilol 6.25 Mg Tablet 6.25 Mg PO BIDWMEALS Bisacodyl 10 Mg Supp.rect 10 Mg RC PRN DAILY PRN Biofreeze (Menthol) 118 Ml Gel..ml. 1 Bush[place] TP PRN Q6HRS PRN Aquaphor Ointment (Mineral Oil/Hydrophil Petrolat) 396 Gm Oint...g. 1 Bushra TP HS Albuterol Sulfate Neb Soln (Albuterol Sulfate) 2.5 Mg/3 Ml Vial.neb 3 Ml NEB PRN Q6HRS PRN I have reviewed the current psychotropics carefully including drug interactions. Risk benefit ratio favors no change other than as noted in my dictated progress note. 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
[2018-04-18] MEDS: MINERAL OIL/PETROLATUM TOPICAL CREAM 113GM JAR. TP SCH (21:19)
[2018-04-18] MEDS: SIMVASTATIN 40 MG TABLET. PO SCH (21:19)
[2018-04-19] MEDS ORDERED: METH29OI TP (04:34)
[2018-04-19] MEDS ORDERED: FENT1PAT15 TP (04:37)
[2018-04-19] MEDS ORDERED: FENT-73 TD (04:37)
[2018-04-19] MEDS ORDERED: ACET325T9 PO (04:39)
[2018-04-19] MEDS ORDERED: QUET25TA5 PO (04:41)
[2018-04-19] MEDS ORDERED: ALPR0.254 PO ×2 (04:43)
[2018-04-19] MEDS ORDERED: HYDR25TA PO (04:45)
[2018-04-19] MEDS ORDERED: MAG30ORA2 PO (04:49)
[2018-04-19] MEDS ORDERED: MAGN400O7 PO (04:52)
[2018-04-19 06:26] VITALS: BP 120/90
[2018-04-19] MEDS: CHLORHEXIDINE 0.12% 15 ML MOUTHWASH. SWSP SCH (08:28)
[2018-04-19] MEDS: LACTASE 3,000 UNIT TABLET PO SCH ×2 (08:28→12:08)
[2018-04-19] MEDS: CALCIUM CARB/VIT D3 500/200 TABLET PO SCH (08:29)
[2018-04-19] MEDS: QUEtiapine 25 MG TABLET. PO SCH ×2 (08:29→12:08)
[2018-04-19] MEDS: METOCLOPRAMIDE 5 MG TABLET PO SCH (08:29)
[2018-04-19] MEDS: FAMOTIDINE 20 MG TABLET PO SCH (08:29)
[2018-04-19] MEDS: LACTOBACILLUS RHAMNOSUS GG 1 CAPSULE. PO SCH (08:29)
[2018-04-19] MEDS: LISINOPRIL 10 MG TABLET PO SCH (08:29)
[2018-04-19 08:30] VITALS: BP 120/90
[2018-04-19] MEDS: DICYCLOMINE HCL 20 MG TABLET PO SCH ×2 (08:30→12:08)
[2018-04-19] MEDS: CARVEDILOL 6.25 MG TABLET PO SCH (08:30)
[2018-04-19] MEDS: DULoxetine HCL 60 MG CAPSULE.DR PO SCH (08:30)
[2018-04-19] MEDS: OXYBUTYNIN CHLORIDE 5 MG TABLET PO SCH ×2 (08:30→14:14)
[2018-04-19] MEDS: ALPRAZolam 0.25 MG TABLET PO SCH ×2 (08:31→14:14)
[2018-04-19] MEDS: POLYVINYL ALCOHOL 1.4% OPHTH SOLUTION 15ML BOTTLE. OU SCH ×2 (08:31→14:14)
[2018-04-19] MEDS ORDERED: DOCUSATE SODIUM 100 MG CAPSULE PO SCH (09:00)
[2018-04-19] MEDS ORDERED: OXYB5TAB7 PO (10:16)
[2018-04-19] MEDS ORDERED: LACT1CAP19 PO (10:22)
[2018-04-19] MEDS: hydrOXYzine HCL 25 MG TABLET PO PRN (12:18)
[2018-04-19] MEDS ORDERED: OXYBUTYNIN CHLORIDE 5 MG TABLET PO SCH (14:00)
--- NOTE | 2018-04-19 18:26 | PDOC ---
Exam Note: Johnny Note: Please also refer to the separate dictated note~for this date of service dictated separately.~Patient seen individually. Discussed the patient with Nursing staff reviewed the chart.~Reviewed interim history and current functioning. Reviewed vital signs,~Labs/ Radiology~and current medications noted below. Continue current treatment with the changes noted in the dictated addendum note Assessment: Vital Signs: Vital Signs Date Time Temp Pulse Resp B/P (MAP) Pulse Ox O2 Delivery O2 Flow Rate FiO2 04/19/18 08:30 61 120/90 04/19/18 06:26 98.4 13 95 04/17/18 14:20 Room Air I&O Intake and Output 04/19/18 07:00 Intake Total 360 ml Balance 360 ml Intake Oral 360 ml Current Medications: Meds: Current Medications Acetaminophen (Tylenol) 650 mg PRN Q6HRS PRN PO PAIN / TEMP Last administered on 04/02/18at 11:45; Start 04/01/18 at 23:00; Stop 04/19/18 at 17:23; Status DC Multi-Ingredient Ointment (Analgesic [place]) 1 bushra PRN QID PRN TP MUSCLE PAIN; Start 04/01/18 at 23:00; Stop 04/19/18 at 17:23; Status DC Al Hydroxide/Mg Hydroxide (Mylanta Plus Xs) 15 ml PRN AFTMEALHC PRN PO DYSPEPSIA Last administered on 04/02/18at 12:27; Start 04/01/18 at 23:00; Stop at 17:23; Status DC Magnesium Hydroxide (Milk Of Magnesia) 2,400 mg PRN QHS PRN PO CONSTIPATION Last administered on 04/10/18 09:26; Start 04/01/18 at 23:00; Stop 04/19/18 at 17:23; Status DC Alprazolam (Xanax) 0.5 mg TID PO Last administered on 04/05/18at 13:43; Start at 09:00; Stop 04/05/18 at 18:13; Status DC Duloxetine HCl (Cymbalta) 60 mg DAILY PO Last administered on 04/19/18at 08:30; Start 04/02/18 at 09:00; Stop 04/19/18 at 17:23; Status DC Melatonin 6 mg PRN QHS PRN PO INSOMNIA Last administered on 04/04/18at 20:48; Start 04/01/18 at 23:45; Stop 04/19/18 at 17:23; Status DC Albuterol Sulfate (Ventolin) 2.5 mg PRN Q6HRS PRN NEB SHORTNESS OF BREATH Last administered on 04/12/18 15:23; Start 04/01/18 at 23:30; Stop 04/19/18 at 17:23 ; Status DC Chlorhexidine Gluconate (Peridex) 15 ml BID SWSP Last administered on 08:28; Start 04/02/18 at 09:00; Stop 04/19/18 at 17:23; Status DC Cyanocobalamin (Vitamin B-12) 1,000 mcg DAILY PO Last administered on at 08:51; Start 04/02/18 at 09:00; Stop 04/19/18 at 17:23; Status DC Guaifenesin (Robitussin) 300 mg PRN Q6HRS PRN PO COUGH; Start 04/01/18 at 23:30 ; Stop 04/19/18 at 17:23; Status DC Lisinopril (Prinivil) 10 mg DAILY PO Last administered on 04/19/18 08:29; Start 04/02/18 at 09:00; Stop 04/19/18 at 17:23; Status DC Simvastatin (Zocor) 40 mg HS PO Last administered on 04/18/18 21:19; Start at 21:00; Stop 04/19/18 at 17:23; Status DC Bisacodyl (Dulcolax Supp) 10 mg PRN DAILY PRN [place] CONSTIPATION Last administered on 04/18/18 18:48; Start 04/01/18 at 23:45; Stop 04/19/18 at 17:23 ; Status DC Calcium/Vitamin D (Oscal D 500mg/ 200uts) 1 tab BIDWMEALS PO Last administered on 04/19/18 08:29; Start 04/02/18 at 08:00; Stop 04/19/18 at 17:23; Status DC Artificial Tears (Artificial Tears) 1 drop QID OU Last administered on at 14:14; Start 04/02/18 at 09:00; Stop 04/19/18 at 17:23; Status DC Carvedilol (Coreg) 6.25 mg BIDWMEALS PO Last administered on 04/19/18at 08:30; Start 04/02/18 at 08:00; Stop 04/19/18 at 17:23; Status DC Cyclobenzaprine HCl (Flexeril) 5 mg PRN Q8HRS PRN PO MUSCLE SPASMS Last administered on 04/17/18at 13:47; Start 04/01/18 at 23:45; Stop 04/19/18 at 17:23 ; Status DC Dicyclomine HCl (Bentyl) 20 mg QID PO Last administered on 04/19/18at 12:08; Start 04/02/18 at 09:00; Stop 04/19/18 at 17:23; Status DC Docusate Sodium (Colace) 100 mg PRN DAILY PRN PO CONSTIPATION; Start 04/01/18 at 23:45; Stop 04/19/18 at 07:54; Status DC Famotidine (Pepcid) 20 mg DAILY PO ; Start 04/02/18 at 09:00; Stop 04/02/18 at 09:00; Status DC Fentanyl (Duragesic 12mcg/ Hr) 1 patch Q3DAYS TD ; Start 04/04/18 at 09:00; Stop 04/04/18 at 09:00; Status DC Lactase (Lactaid) 9,000 unit TIDWMEALS PO Last administered on 04/19/18at 12:08 ; Start 04/02/18 at 08:00; Stop 04/19/18 at 17:23; Status DC Loperamide HCl (Imodium) 2 mg PRN Q4HRS PRN PO DIARRHEA; Start 04/01/18 at 23: 45; Stop 04/19/18 at 17:24; Status DC Non-Formulary Medication (Mag Hydrox/ Aluminum Hyd/ Simeth (Maalox Advanced Suspension)) 30 ml PRN Q6HRS PRN PO DYSPEPSIA; Start 04/01/18 at 23:30; Status UNV Non-Formulary Medication (Menthol (Biofreeze)) 1 bushra PRN Q6HRS PRN TP PAIN; Start 04/01/18 at 23:30; Status UNV Metoclopramide HCl (Reglan) 5 mg DAILY PO Last administered on 04/19/18at 08:29 ; Start 04/02/18 at 09:00; Stop 04/19/18 at 17:24; Status DC Metoclopramide HCl (Reglan) 5 mg PRN Q6HRS PRN PO NAUSEA/VOMITING Last administered on 04/04/18at 15:13; Start 04/01/18 at 23:45; Stop 04/19/18 at 17:24 ; Status DC Multi-Ingred Cream/Lotion/Oil/ Oint (Hydrocerin) 1 bushra QHS TP Last administered on 04/18/18at 21:19; Start 04/02/18 at 21:00; Stop 04/19/18 at 17:24 ; Status DC Pantoprazole Sodium (Protonix) 40 mg QHS PO ; Start 04/02/18 at 21:00; Stop at 21:00; Status DC Ondansetron HCl (Zofran Odt) 4 mg PRN Q8HRS PRN PO NAUSEA/VOMITING Last administered on 04/13/18at 09:30; Start 04/01/18 at 23:45; Stop 04/19/18 at 17:24 ; Status DC Oxybutynin Chloride (Ditropan) 5 mg BID PO Last administered on 04/16/18at 08:10 ; Start 04/02/18 at 09:00; Stop 04/16/18 at 10:17; Status DC Oxycodone HCl (Roxicodone) 5 mg PRN Q6HRS PRN PO PAIN Last administered on at 18:16; Start 04/01/18 at 23:45; Stop 04/19/18 at 17:24; Status DC Throat Lozenges (Cepacol Sore Throat Lozenge) 1 bela PRN Q2HR PRN PO SORE THROAT ; Start 04/01/18 at 23:45; Stop 04/19/18 at 17:24; Status DC Fentanyl (Duragesic 25mcg/ Hr) 1 patch Q3DAYS TD ; Start 04/04/18 at 09:00; Stop 04/04/18 at 09:00; Status DC Info (Do NOT chart on this placeholder) 1 each 1X ONCE MC Last administered on 04/02/18at 00:00; Start 04/02/18 at 00:00; Stop 04/02/18 at 00:01; Status DC Famotidine (Pepcid) 20 mg BID PO Last administered on 04/19/18at 08:29; Start at 09:00; Stop 04/19/18 at 17:24; Status DC Fentanyl (Duragesic 12mcg/ Hr) 1 patch Q3DAYS TD Last administered on at 09:59; Start 04/02/18 at 14:00; Stop 04/19/18 at 17:24; Status DC Fentanyl (Duragesic 25mcg/ Hr) 1 patch Q3DAYS TD Last administered on at 09:59; Start 04/02/18 at 14:00; Stop 04/19/18 at 17:24; Status DC Hydroxyzine HCl (Atarax) 25 mg PRN Q2HR PRN PO ANXIETY Last administered on at 12:18; Start 04/03/18 at 18:30; Stop 04/19/18 at 17:24; Status DC Quetiapine Fumarate (SEROquel) 12.5 mg 0900,1300,1700 PO Last administered on at 18:39; Start 04/04/18 at 09:00; Stop 04/06/18 at 18:51; Status DC Ertapenem 1 gm/ Sodium Chloride 50 ml @ 100 mls/hr DAILY IV ; Start 04/11/18 at 09:00; Stop 04/11/18 at 09:00; Status DC Cefepime HCl (Maxipime) 1 gm Q24H IM Last administered on 04/12/18at 14:11; Start 04/05/18 at 13:30; Stop 04/12/18 at 13:31; Status DC Alprazolam (Xanax) 0.5 mg BID PO Last administered on 04/11/18at 08:43; Start at 21:00; Stop 04/11/18 at 15:49; Status DC Alprazolam (Xanax) 0.25 mg DAILY@1400 PO Last administered on 04/11/18at 14:45; Start 04/06/18 at 14:00; Stop 04/11/18 at 15:49; Status DC Lactobacillus Rhamnosus (Culturelle) 1 cap BID PO Last administered on 08:29; Start 04/06/18 at 21:00; Stop 04/19/18 at 17:24; Status DC Quetiapine Fumarate (SEROquel) 25 mg BIDWMEALS PO Last administered on at 08:40; Start 04/07/18 at 08:00; Stop 04/11/18 at 15:49; Status DC Quetiapine Fumarate (SEROquel) 12.5 mg DAILYWLUN PO Last administered on at 12:30; Start 04/07/18 at 12:00; Stop 04/08/18 at 18:27; Status DC Quetiapine Fumarate (SEROquel) 25 mg DAILYWLUN PO Last administered on at 14:45; Start 04/09/18 at 12:00; Stop 04/11/18 at 15:49; Status DC Alprazolam (Xanax) 0.25 mg BID@0900,1400 PO Last administered on 04/19/18at 14: 14; Start 04/12/18 at 09:00; Stop 04/19/18 at 17:24; Status DC Alprazolam (Xanax) 0.5 mg QHS PO Last administered on 04/13/18at 20:14; Start 04/11/18 at 21:00; Stop 04/13/18 at 21:01; Status DC Quetiapine Fumarate (SEROquel) 37.5 mg TIDWMEALS PO Last administered on 12:08; Start 04/11/18 at 17:00; Stop 04/19/18 at 17:24; Status DC Alprazolam (Xanax) 0.25 mg HS PO Last administered on 04/18/18at 21:25; Start at 21:00; Stop 04/19/18 at 17:24; Status DC Oxybutynin Chloride (Ditropan) 5 mg TID PO Last administered on 04/19/18at 14:14 ; Start 04/16/18 at 14:00; Stop 04/19/18 at 17:24; Status DC Docusate Sodium (Colace) 100 mg BID PO Last administered on 04/19/18at 08:29; Start 04/19/18 at 09:00; Stop 04/19/18 at 17:24; Status DC Oxybutynin Chloride (Ditropan) 5 mg TID PO ; Start 04/19/18 at 14:00; Stop 04/19 at 17:24; Status DC Active Scripts Active Reported Culturelle (Lactobacillus Rhamnosus Gg) 1 Each Cap.sprink 1 Each PO BID Oxybutynin Chloride 5 Mg Tablet 5 Mg PO TID Milk Of Magnesia (Magnesium Hydroxide) 400 Mg/5 Ml Oral.susp 2,400 Mg PO PRN QHS PRN Mag-Al Plus Xs Suspension (Mag Hydrox/Al Hydrox/Simeth) 30 Ml Oral.susp 15 Ml PO PRN AFTMEALHC PRN Hydroxyzine Hcl 25 Mg Tablet 25 Mg PO PRN Q2HR PRN Alprazolam 0.25 Mg Tablet 0.25 Mg PO HS PRN Alprazolam 0.25 Mg Tablet 0.25 Mg PO BID@0900,1400 PRN Seroquel (Quetiapine Fumarate) 25 Mg Tablet 37.5 Mg PO TIDWMEALS Tylenol (Acetaminophen) 325 Mg Tablet 650 Mg PO PRN Q6HRS PRN FENTANYL 12mcg/hr (Fentanyl) 1 Each Patch.td72 1 Patch TD Q3DAYS FENTANYL 25mcg/hr (Fentanyl) 1 Each Patch.td72 1 Patch TP Q3DAYS Analgesic [place] (Methyl Salicylate/Menthol) 28 Gm Oint...g. 1 Bushra TP Ondansetron Hcl 4 Mg Tablet 4 Mg PO PRN Q8HRS PRN Throat Drops (Pectin) 2.8 Mg Lozenge 1 Unit PO PRN Q3HRS PRN Simvastatin 40 Mg Tablet 40 Mg PO HS Reglan (Metoclopramide Hcl) 5 Mg Tablet 5 Mg PO DAILY Reglan (Metoclopramide Hcl) 5 Mg Tablet 5 Mg PO PRN Q6HRS PRN Refresh Optive Eye Drops (Carboxymethylcellulos/Glycerin) 15 Ml Drops 1 Drop EACHEYE QID Oyster Shell 500 Mg + Vit D Tb (Calcium Carbonate/Vitamin D3) 1 Each Tablet 1 Tab PO BID Oxycodone Hcl 5 Mg Capsule 5 Mg PO PRN Q6HRS PRN Melatonin 5 Mg Tablet (Melatonin/Pyridoxine) 1 Each Tablet 6 Mg PO PRN QHS PRN Lisinopril 10 Mg Tablet 10 Mg PO DAILY Lactase 3,000 Unit Tablet 3 Tab PO TIDWMEALS Imodium A-D (Loperamide HCl) 2 Mg Capsule 2 Mg PO PRN Q4HRS PRN Guaifenesin 100 Mg/5 Ml Liquid 15 Ml PO PRN Q6HRS PRN Famotidine 20 Mg Tablet 20 Mg PO BID Dicyclomine Hcl 20 Mg Tablet 20 Mg PO QID Cymbalta (Duloxetine Hcl) 60 Mg Capsule.dr 60 Mg PO DAILY Cyclobenzaprine Hcl 5 Mg Tablet 5 Mg PO PRN Q8HRS PRN Vitamin B-12 (Cyanocobalamin (Vitamin B-12)) 1,000 Mcg Tablet 1,000 Mcg PO DAILY Colace (Docusate Sodium) 100 Mg Capsule 100 Mg PO BID Peridex (Chlorhexidine Gluconate) 15 Ml Mouthwash 15 Ml PO BID Carvedilol 6.25 Mg Tablet 6.25 Mg PO BIDWMEALS Bisacodyl 10 Mg Supp.rect 10 Mg RC PRN DAILY PRN Aquaphor Ointment (Mineral Oil/Hydrophil Petrolat) 396 Gm Oint...g. 1 Bushra TP HS Albuterol Sulfate Neb Soln (Albuterol Sulfate) 2.5 Mg/3 Ml Vial.neb 3 Ml NEB PRN Q6HRS PRN I have reviewed the current psychotropics carefully including drug interactions. Risk benefit ratio favors no change other than as noted in my dictated progress note. Diagnosis: Problems: (1) Bipolar affective disorder, mixed (2) Anxiety disorder (3) Impulse control disorder KALIE RODRÍGUEZ MD Apr 19, 2018 18:26
--- NOTE | 2018-04-19 23:06 | PN ---
DATE: 04/17/2018 This is a late entry for 04/17/2018 covers elements not covered in my initial note. SUBJECTIVE: I met with the patient in the evening. Overall, the patient slept 10 hours previous evening, more coherent, pleasant, verbal, smiling as I met with her. REVIEW OF SYSTEMS: Positive for suprapubic discomfort and Ditropan was increased per Dr. Barajas. UA shows no growth. No pulmonary, CV, GI, eye, ENT system symptoms on review, which is an improvement for her, previously she was extremely somatically preoccupied. MENTAL STATUS EXAM: I met with the patient in her room. She is pleasant, smiling. Speech coherent, abstraction fair, computation impaired, language function intact. Mood and affect improved, less labile. LABORATORY DATA: Reviewed. IMPRESSION: Unchanged from initial note. PLAN: Continue psychotropics from initial note. MAN Ziggy RODRÍGUEZ MD DR: SHIRA/tessie JOB#: [id number] / [id number]
--- NOTE | 2018-04-19 23:09 | PN ---
DATE: 04/18/2018 This late entry 04/18/2018 covers elements not covered in my initial note. SUBJECTIVE: I met with the patient in the evening and staffed at treatment team meeting with the entire team in the morning. Reviewed the patient's history, diagnosis, progress, discharge plans, current psychotropics. The patient slept 8-3/4 hours previous night, compliant with medications. Appetite is 50%. REVIEW OF SYSTEMS: Complains of some constipation. We will increase the Colace. She refused the suppository, which I had suggested to her. She states she has dug out some hard stool from her rectal area and I advised her not to do that. Ambulation impaired. No CV, pulmonary, eye system symptoms on review. MENTAL STATUS EXAM: Oriented to herself and situation. Speech is coherent, abstraction fair, computation impaired, language function intact, attention span short. Mood and affect showing improvement. LABORATORY DATA: Reviewed. IMPRESSION: Unchanged from initial note. Bipolar 1 disorder, mixed with psychotic features, in partial remission; cognitive disorder, unspecified. PLAN: Continue psychotropics mentioned in my initial note. Transition to senior care 04/19/2018. MAN Ziggy RODRÍGUEZ MD DR: SHIRA/tessie JOB#: [id number] / [id number]
--- NOTE | 2018-04-20 19:46 | DS ---
DATE OF DISCHARGE: 04/19/2018 DISCHARGE SUMMARY/PSYCHIATRIC PROGRESS NOTE This is a late entry, 04/19/2018, covers the elements not covered in my initial note. REASON FOR ADMISSION: Please refer to the admission history for details. Briefly, the patient is a 72-year-old female referred to us from [facility] on account of increased anxiety and "attention seeking behaviors." The patient was quite delusional, believes someone who was coming to pick her up to take her home. She was having marked mood lability, crying spells, and she had walked into the social service director's office, [facility], and unable to function at the nursing facility stating she needed to get to the hospital. She had marked somatic preoccupation. Behaviors were unmanageable at the nursing facility resulting in this referral within the context of her diagnosis of bipolar disorder. SIGNIFICANT FINDINGS AND CLINICAL COURSE: Following admission, the patient was seen daily individually by myself, followed medically per Dr. Barajas/Dr. Zarate. She had completed a course of antibiotics for UTI and psychotropics were adjusted. She seemed to respond to a combination of Cymbalta 60 mg a day, melatonin 6 mg at bedtime p.r.n., Xanax 0.25 mg at bedtime and 0.25 mg 0900, 1400. This is being tapered and should be gradually tapered further back at the long term till it is discontinued. She was also on Seroquel 37.5 mg 3 times a day, hydroxyzine p.r.n. Prior to discharge, her UA was repeated and reflex to culture and long term staff should followup and if she is positive for UTI, it needs to be treated again. Nevertheless, during this hospitalization, mood appeared to stabilize. She was much less labile, less somatically preoccupied and subjectively indicated she felt "much better." She was having some constipation, but refused suppository night before discharge. Prior to discharge, ambulation impaired with a walker. REVIEW OF SYSTEMS: No CV, , pulmonary, eye system symptoms on review, does complain of constipation with hard BMs. MENTAL STATUS EXAM: Oriented to herself, situation. Speech coherent, less pressured. Abstraction fair, computation impaired, language function intact, attention span short. Mood and affect is improved. No suicidal or homicidal ideation. LABORATORY DATA: Reviewed. CONDITION AT DISCHARGE: Improved. FINAL DIAGNOSES: Bipolar 1 disorder, mixed with psychotic features, in partial remission; cognitive disorder, unspecified; anxiety disorder, unspecified. Rest unchanged including probable recurrent urinary tract infection. Rest unchanged from admission. DISCHARGE MEDICATIONS: Please refer to the [facility]. DISCHARGE INSTRUCTIONS: Outpatient psychiatric and medical followup at the long term. Time for discharge day management greater than 30 minutes. KALIE RODRÍGUEZ MD DR: SHIRA/tessie JOB#: [id number] / [id number]
== END 2018-04-19 15:00 | DRG 885 ==
LOC: ER 18:29 → GEROPSY 22:25
PROVIDERS: ADMIT Psychiatry & Neurology Psychiatry; ATTEND Psychiatry & Neurology Psychiatry
DX: F31.64 Bipolar disorder, current episode mixed, severe, with psychotic features (principal); N39.0 Urinary tract infection, site not specified; G30.9 Alzheimer's disease, unspecified; E78.5 Hyperlipidemia, unspecified; F01.50 Vascular dementia, unspecified severity, without behavioral disturbance, psychotic disturbance, mood disturbance, and anxiety; F02.80 Dementia in other diseases classified elsewhere, unspecified severity, without behavioral disturbance, psychotic disturbance, mood disturbance, and anxiety; F09 Unspecified mental disorder due to known physiological condition; F41.9 Anxiety disorder, unspecified; F63.9 Impulse disorder, unspecified; K21.9 Gastro-esophageal reflux disease without esophagitis; I48.91 Unspecified atrial fibrillation; I25.10 Atherosclerotic heart disease of native coronary artery without angina pectoris; I11.0 Hypertensive heart disease with heart failure; J44.9 Chronic obstructive pulmonary disease, unspecified; I50.9 Heart failure, unspecified; K58.9 Irritable bowel syndrome, unspecified; M15.9 Polyosteoarthritis, unspecified; M81.0 Age-related osteoporosis without current pathological fracture; M79.7 Fibromyalgia; Z66 Do not resuscitate; Z87.440 Personal history of urinary (tract) infections; Z90.710 Acquired absence of both cervix and uterus; Z90.49 Acquired absence of other specified parts of digestive tract; Z90.722 Acquired absence of ovaries, bilateral; Z88.2 Allergy status to sulfonamides; Z88.8 Allergy status to other drugs, medicaments and biological substances; Z91.041 Radiographic dye allergy status; Z79.899 Other long term (current) drug therapy
CPT/HCPCS: 36415; 70450; 71045; 80048; 80053; 80061; 80076; 80307; 81001; 82140; 82306; 82553; 82607; 83036; 83540; 83550; 83735; 83880; 84436; 84443; 84480; 84484; 85025; 85610; 85651; 85730; 86592; 87086; 87186; 93005; G0238; J0692; J7613; J8597; P9612; Q0162; 97110; 97116; 97530; 97535; 99285-25; G0479